=== PATIENT | female | born 1975 | race Hispanic/Latino ===

== ENCOUNTER 2017-10-07 12:47 | Emergency (ER) | payer OTHER ==
[2017-10-07 16:14] LABS: #Basophils 0.1 thou/uL (0.0-0.2); #Eosinphils 0.2 thou/uL (0.0-0.7); #Lymphocytes 1.5 thou/uL (1.20-3.40); #Monocytes 0.3 thou/uL (0.11-0.59); #Neutrophils 5.2 thou/uL (1.40-6.50); %Eosinophils 2.5 % (0.0-10.0); %Lymphocytes 21.1 % (21.0-51.0); %Monocytes 3.6 % (0.0-10.0); %Neutrophils 71.8 % (42.0-75.0); Hemoglobin 12.6 g/dL (12.0-16.0); Mean Corpuscular HGB CONC 33.7 g/dL (32.0-36.0); Mean Corpuscular Hemoglobin 31.7 pg (27.0-31.0); Mean Corpuscular Volume 94.1 fl (81.0-99.0); Mean Platelet Volume 7.6 fL (7.4-10.4); Platelet Count 243 thou/uL (130-400); RBC Distribution Width 12.3 % (11.5-14.5); Red Blood Cell (RBC) Count 3.97 mill/uL (4.20-5.40); White Blood Cell (WBC) Count 7.2 thou/uL (4.8-10.8)
[2017-10-07 16:35] LABS: ALT (SGPT) 39 U/L (8-55); AST (SGOT) 27 U/L (5-34); Albumin 4.3 g/dL (3.5-5.0); Alkaline Phosphatase 110 U/L (40-150); Anion Gap 19 mmol/L (10-20); BUN (Urea Nitrogen) 25 mg/dL (7.0-18.7); Bilirubin, Total 0.7 mg/dL (0.2-1.2); Calc. Creatinine Clearance 0 mL/min (70-130); Calcium 10.1 mg/dL (7.8-10.44); Carbon Dioxide 19 mmol/L (22-29); Chloride 100 mmol/L (98-107); Estimated GFR-MDRD 44; Globulin 3.6 g/dL (2.4-3.5); Glucose 407 mg/dL (70-105); Protein, Total 7.9 g/dL (6.0-8.3); Sodium 134 mmol/L (136-145)
[2017-10-07 16:52] LABS: Bilirubin Negative (Negative); Blood, Urine Trace (Negative); Clarity TURBID (Clear); Glucose, Urine (Dipstick) >=1000 mg/dL (Negative); Leukocyte Small (Negative); Nitrite Negative (Negative); Protein, Urine (Dipstick) 30 mg/dL (Neg-Trace); Specific Gravity, Urine 1.037 (1.002-1.036); Urobilinogen 0.2 mg/dL (0.2-1.0)
[2017-10-07 16:54] LABS: Bacteria/HPF 2+ HPF (None Seen); Hyaline Casts/LPF 4-6 HYALINE CAST LPF (0-3 Hyaline); Pathc Cast-AUWi Flag 1.36 (0-2.49); Squamous Epithelial 21-50 HPF (0-3)
[2017-10-07 16:55] LABS: Yeast-AUWi Flag 6342.6 (0-25.0)
[2017-10-07 17:06] LABS: RBC/HPF 0-3 HPF (0-3); Yeast-All Forms 3+ HPF (None Seen)
--- NOTE | 2017-10-07 17:13 | RAD ---
TWO VIEWS LEFT HIP 10/07/17 HISTORY: Weakness and pain x2 weeks. COMPARISON: 07/16/13. FINDINGS: Contour of the femoral head is maintained. Joint space is preserved. No fracture. IMPRESSION: Unremarkable two views left hip. POS: [facility]
[2017-10-07] MEDS ORDERED: cefTRIAXone\\ROCEPHIN 2 GM in Sodium Chloride 0.9% 100 ML IVPB SCH (17:30)
== END 2017-10-07 18:53 | disposition home or self-care (01) ==
LOC: ERS 12:47
DX: E11.65 Type 2 diabetes mellitus with hyperglycemia (principal); N39.0 Urinary tract infection, site not specified; E03.9 Hypothyroidism, unspecified; E78.5 Hyperlipidemia, unspecified; J45.909 Unspecified asthma, uncomplicated; F31.9 Bipolar disorder, unspecified; F20.9 Schizophrenia, unspecified; F17.210 Nicotine dependence, cigarettes, uncomplicated
CPT/HCPCS: 36416; 80053; 81003; 81015; 85025; 93005; 96361; 96365; J0696; J7050

== ENCOUNTER 2018-01-18 20:13 | Observation (INO) | payer OTHER ==
[~2018-01-18 20:13] MED LIST: ISOVUE-370 76%-LOCM 1 ML ONE
--- NOTE | 2018-01-18 20:34 | CT ---
BRAIN CT WITHOUT IV CONTRAST: HISTORY: A 42-year-old female with a history of left-sided facial weakness. Stroke. Last seen normal seven h ours ago. COMPARISON: 11/15/2016 FINDINGS: No focal mass or midline shift. No intraaxial or extraaxial hemorrhage. There are some sinus mucosa l changes. The mastoids are clear. IMPRESSION: No acute intracranial process. No mass or bleed. Findings were discussed with Dr. Ag, by phone, at 8:28 p.m. CODE CR POS: [facility]
--- NOTE | 2018-01-18 21:09 | CT ---
CTA BRAIN WITH 3D RENDERING: HISTORY: A 42-year-old female with a history of a stroke. Left-sided facial droop. FINDINGS: The vertebral arteries and basilar artery are somewhat low normal in size, probably developmental. N o evidence for significant focal stenosis or occlusive disease. The left vertebral is somewhat small er than the right. There are bilaterally large posterior communicating arteries. No evidence for si gnificant intracranial occlusive disease. No evidence for an aneurysm. There are some minimal calci fied plaques in the intracranial carotid arteries. IMPRESSION: 1. No evidence for acute intracerebral artery occlusive disease. Certainly no evidence for an M1 cl ot. 2. Somewhat small caliber right and left vertebral arteries, somewhat smaller on the left side, and small basilar artery, probably just developmental. There are bilaterally large posterior cerebral ar teries. POS: [facility]
[2018-01-18 21:29] LABS: ALT (SGPT) 10 U/L (8-55); AST (SGOT) 16 U/L (5-34); Albumin 3.5 g/dL (3.5-5.0); Alcohol Less than 10 mg/dL (Less than 10); Alkaline Phosphatase 92 U/L (40-150); Anion Gap 18 mmol/L (10-20); BUN (Urea Nitrogen) 13 mg/dL (7.0-18.7); Bilirubin, Total 0.6 mg/dL (0.2-1.2); CKMB 1.1 ng/mL (0-6.6); Calc. Creatinine Clearance 0 mL/min (70-130); Calcium 8.9 mg/dL (7.8-10.44); Carbon Dioxide 18 mmol/L (22-29); Chloride 95 mmol/L (98-107); Estimated GFR-MDRD 33; Globulin 2.8 g/dL (2.4-3.5); Potassium 3.6 mmol/L (3.5-5.1); Protein, Total 6.3 g/dL (6.0-8.3); Sodium 127 mmol/L (136-145); Troponin I Less than 0.010 ng/mL (< 0.028)
[2018-01-18 21:29] LABS: #Basophils 0.1 thou/uL (0.0-0.2); #Eosinphils 0.3 thou/uL (0.0-0.7); #Lymphocytes 1.7 thou/uL (1.20-3.40); #Monocytes 0.5 thou/uL (0.11-0.59); %Basophils 0.6 % (0.0-1.0); %Eosinophils 2.7 % (0.0-10.0); %Monocytes 3.9 % (0.0-10.0); %Neutrophils 77.9 % (42.0-75.0); Hemoglobin 11.9 g/dL (12.0-16.0); Mean Corpuscular HGB CONC 34.4 g/dL (32.0-36.0); Mean Corpuscular Hemoglobin 30.5 pg (27.0-31.0); Mean Corpuscular Volume 88.7 fl (81.0-99.0); Mean Platelet Volume 7.8 fL (7.4-10.4); Platelet Count 255 thou/uL (130-400); RBC Distribution Width 12.7 % (11.5-14.5); Red Blood Cell (RBC) Count 3.91 mill/uL (4.20-5.40); White Blood Cell (WBC) Count 11.6 thou/uL (4.8-10.8)
[2018-01-18 21:35] LABS: INR-International Normal Ratio 1.1; PTT 33.2 SEC (22.9-36.1); Prothrombin Time 14.4 SEC (12.0-14.7)
[2018-01-18 22:01] LABS: Glucose 594 mg/dL (70-105)
[2018-01-18] MEDS ORDERED: Insulin Regular 300 UNITS/3 ML VIAL ONE (22:14)
[2018-01-18] MEDS ORDERED: Ondansetron ODT 4 MG TAB ONE (22:14)
--- NOTE | 2018-01-18 22:22 | RAD ---
CHEST ONE VIEW: HISTORY: A 42-year-old female with a history of left-sided facial drooping. COMPARISON: 12/17/2016 FINDINGS: Heart size is normal. Lungs are clear. Old granulomatous disease. Atherosclerosis of the aorta. IMPRESSION: 1. Stable atherosclerosis and old granulomatous disease. 2. No acute intrathoracic disease. 3. Unchanged from prior exam from 12/17/2016. POS: [facility]
[2018-01-18 22:46] LABS: Bilirubin Negative (Negative); Blood, Urine Trace (Negative); Clarity CLOUDY (Clear); Glucose, Urine (Dipstick) >=1000 mg/dL (Negative); Leukocyte Moderate (Negative); Nitrite Positive (Negative); Protein, Urine (Dipstick) Trace mg/dL (Neg-Trace); Specific Gravity, Urine 1.039 (1.002-1.036); Urobilinogen 0.2 mg/dL (0.2-1.0)
[2018-01-18 22:48] LABS: Bacteria/HPF 4+ HPF (None Seen); Hyaline Casts/LPF 0-3 HYALINE CAST LPF (0-3 Hyaline); Pathc Cast-AUWi Flag 0.29 (0-2.49); Squamous Epithelial 0-3 HPF (0-3); Yeast-AUWi Flag 111.5 (0-25.0)
[2018-01-18 22:54] LABS: Amphetamine Not Detected (NotDetected); Barbiturates Screen Not Detected (NotDetected); Benzodiazepine Screen Not Detected (NotDetected); Cocaine Metabolite Screen Not Detected (NotDetected); Medtox Control Line Valid? VALID (VALID); Medtox Reader # READER 4; Methadone Not Detected (NotDetected); Methamphetamine Not Detected (NotDetected); Opiate Screen Not Detected (NotDetected); Oxycodone Screen Not Detected (NotDetected); Phencyclidine (PCP) Not Detected (NotDetected); THC/Cannabinoid Screen Not Detected (NotDetected); Tricyclic Screen Not Detected (NotDetected)
[2018-01-18 22:56] LABS: Yeast-All Forms 1+ HPF (None Seen)
[2018-01-19] MEDS ORDERED: Acetaminophen 325 MG TAB PO PRN (00:02)
[2018-01-19] MEDS ORDERED: Ondansetron ODT 4 MG TAB PO PRN (00:02)
[2018-01-19] MEDS ORDERED: Ondansetron HCl/PF 4 MG/2 ML Vial IVP PRN (00:02)
[2018-01-19] MEDS ORDERED: Sodium Chloride 0.9% 1,000 ML IV SCH (00:15)
--- NOTE | 2018-01-19 00:25 | PDOC.FPRHP ---
- History of Present Illness Chief Complaint: AMS History of Present Illness: 42 year old female with PMH of diabetes mellitus type II, hypothyroidism, schizoaffective disorder, and tobacco abuse that presents with AMS. She was out at [place] today with her family when she was noted to have slurred speech around 13:00. [facility] [place] [facility] [place] but cannot recall the events leading up to being in the hospital. Family members called EMS due to concerns for a stroke. Patient denies any trauma, N/V/D, fever, or trauma. She states that she was drinking plenty of fluids today to include water and gatorade, but feels she may have gotten overheated. She does not recall losing consciousness or passing out, but cannot remember for certain. There is no family around to provide history. Patient lives at home with her daughter and has been feeling fine up to this point. She has not had any recent illness. Patient denies any alcohol use today. ED Course: Patient given 4 mg zofran ODT, ASA 324 mg, Novolin R 10 Units, and 500 mL fluid bolus in ED - Allergies/Adverse Reactions Allergies Allergy/AdvReac Type Severity Reaction Status Date / Time amoxicillin trihydrate Allergy Unknown Verified 01/19/18 02:13 [From Trimox] doxycycline Allergy Unknown Verified 01/19/18 02:13 Penicillins Allergy Unknown Verified 01/19/18 02:13 sulfamethoxazole Allergy Unknown Verified 01/19/18 02:13 [From Bactrim] trimethoprim [From Bactrim] Allergy Unknown Verified 01/19/18 02:13 - Home Medications Medication Instructions Recorded Confirmed Type metFORMIN HCl 500 mg PO BID-WM #0 tab 09/13/14 01/19/18 Rx Levothyroxine Sodium 200 mcg PO DAILY #60 tablet 09/04/16 01/19/18 Rx - History PMHx: Schizoaffective disorder, Anxiety, Insomnia, Diabetes mellitus type II, Hypothyroidism, CHF with preserved EF borderline PSHx: Hysterectomy, Cholecystectomy, Hx of bianca gangrene s/p debridement FHx: Non-contributory Social: Patient endorses a 1/2 PPD smoking history for the past 30 years. She endorses occasional alcohol use. Denies illicit drug use. - Review of Systems General: reports: fatigue. denies: fever/chills, weight/appetite/sleep changes Eyes: denies: vision changes ENT: denies: nasal congestion, rhinorrhea Respiratory: denies: cough, congestion, shortness of breath Cardiovascular: denies: chest pain, palpitation, edema Gastrointestinal: denies: nausea, vomiting, diarrhea, constipation, abdominal pain Genitourinary: denies: dysuria, polyuria Skin: denies: rashes, jaundice, itching Musculoskeletal: denies: pain, tenderness, stiffness, arthritis/arthralgias Neurological: reports: weakness, other (Light-headed, dizzy). denies: numbness , seizure - Vital signs BP: 121/74 HR: 71 RR: 12 Tmax: 98.3 F Pox: 98% on RA Wt: 69.20 kg - Physical Exam Constitutional: NAD, awake, alert and oriented, well developed -Constitutional: Appears drowsy HEENT: EOMI -HEENT: left eyelid droop, normal per patient, poor dentition Neck: supple Heart: RRR, no murmurs/rubs/gallops Lungs: CTAB, no respiratory distress, good air movement, no wheezing Abdomen: soft, non-tender, bowel sounds present, no masses/distention Musculoskeletal: normal structure -Musculoskeletal: left hip pain which limits ability to flex hip against gravity or resistance, tender to palpation at left hip joint Neurological: no focal deficit Skin: no rash/lesions, capillary refill <2 seconds -Skin: feet appear to be poorly cared for Heme/Lymphatic: no unusual bruising or bleeding, no purpura -Psychiatric: poor insight and recent memory FMR H&P: Results - Labs Result Diagrams: 01/19/18 04:47 01/19/18 04:47 Lab results: WBC 11.6 thou/uL (4.8-10.8) H 01/18/18 21:19 Hgb 11.9 g/dL (12.0-16.0) L 01/18/18 21:19 Hct 34.7 % (36.0-47.0) L 01/18/18 21:19 MCV 88.7 fl (81.0-99.0) 01/18/18 21:19 Plt Count 255 thou/uL (130-400) 01/18/18 21:19 Neutrophils % 77.9 % (42.0-75.0) H 01/18/18 21:19 Sodium 127 mmol/L (136-145) L 01/18/18 21:04 Potassium 3.6 mmol/L (3.5-5.1) 01/18/18 21:04 Chloride 95 mmol/L (98-107) L 01/18/18 21:04 Carbon Dioxide 18 mmol/L (22-29) L 01/18/18 21:04 BUN 13 mg/dL (7.0-18.7) 01/18/18 21:04 Creatinine 1.71 mg/dL (0.6-1.1) H 01/18/18 21:04 Glucose 594 mg/dL (70-105) H* 01/18/18 21:04 Calcium 8.9 mg/dL (7.8-10.44) 01/18/18 21:04 Total Bilirubin 0.6 mg/dL (0.2-1.2) 01/18/18 21:04 AST 16 U/L (5-34) 01/18/18 21:04 ALT 10 U/L (8-55) 01/18/18 21:04 Alkaline Phosphatase 92 U/L (40-150) 01/18/18 21:04 Ammonia 25 umol/L (18-72) 01/18/18 21:47 CK-MB (CK-2) 1.1 ng/mL (0-6.6) 01/18/18 21:04 Serum Total Protein 6.3 g/dL (6.0-8.3) 01/18/18 21:04 Albumin 3.5 g/dL (3.5-5.0) 01/18/18 21:04 Urine Ketones Negative mg/dL (Negative) 01/18/18 22:35 Urine Blood Trace (Negative) H 01/18/18 22:35 Urine Nitrite Positive (Negative) H 01/18/18 22:35 Ur Leukocyte Esterase Moderate (Negative) H 01/18/18 22:35 Urine RBC 4-6 HPF (0-3) 01/18/18 22:35 Urine WBC Greater Than 50-TNTC HPF (0-3) H 01/18/18 22:35 Ur Squamous Epith Cells 0-3 HPF (0-3) 01/18/18 22:35 Urine Bacteria 4+ HPF (None Seen) H 01/18/18 22:35 - EKG Interpretation EKG: incomplete RBBB, IA 180 ms - Radiology Interpretation CT scan - head Status: image reviewed by me, report reviewed by me Additional comment: No acute intracranial findings Other Status: image reviewed by me, report reviewed by me Additional comment: CT angiography head and neck: no evidence of ischemia or clot formation Chest x-ray Status: image reviewed by me, report reviewed by me Additional comment: stable chronic granulomatous disease, no acute findings FMR H&P: A/P - Problem List (1) Encephalopathy acute Current Visit: Yes Status: Acute Code(s): G93.40 - ENCEPHALOPATHY, UNSPECIFIED (2) Urinary tract infection Current Visit: Yes Status: Acute (3) Moderate dehydration Current Visit: Yes Status: Acute Code(s): E86.0 - DEHYDRATION (4) Hyperglycemia Current Visit: Yes Status: Acute Code(s): R73.9 - HYPERGLYCEMIA, UNSPECIFIED (5) Diabetes type 2, uncontrolled Current Visit: No Status: Chronic Code(s): E11.65 - TYPE 2 DIABETES MELLITUS WITH HYPERGLYCEMIA Qualifiers: Diabetes mellitus ferry terminal agent insulin use: with fdc use Diabetes mellitus complication status: without complication Qualified Code(s): E11.65 - Type 2 diabetes mellitus with hyperglycemia; Z79.4 - middle or intermediate school principal (current) use of insulin; Z79.4 - middle or intermediate school principal (current) use of insulin; Z79.4 - long-term ( current) use of insulin; Z79.4 - middle or intermediate school principal (current) use of insulin (6) History of coronary artery disease Current Visit: No Status: Chronic Code(s): Z86.79 - PERSONAL HISTORY OF OTHER DISEASES OF THE CIRCULATORY SYSTEM (7) Hypothyroidism Current Visit: No Status: Chronic Code(s): E03.9 - HYPOTHYROIDISM, UNSPECIFIED (8) Noncompliance with medication regimen Current Visit: No Status: Chronic Code(s): Z91.14 - PATIENT'S OTHER NONCOMPLIANCE WITH MEDICATION REGIMEN (9) Congestive heart failure with left ventricular diastolic dysfunction Current Visit: Yes Status: Chronic Code(s): I50.30 - UNSPECIFIED DIASTOLIC ( CONGESTIVE) HEART FAILURE Qualifiers: Congestive heart failure chronicity: chronic Qualified Code(s): I50.32 - Chronic diastolic (congestive) heart failure (10) Hyponatremia Current Visit: Yes Status: Acute Code(s): E87.1 - HYPO-OSMOLALITY AND HYPONATREMIA (11) JESSICA (acute kidney injury) Current Visit: No Status: Acute Code(s): N17.9 - ACUTE KIDNEY FAILURE, UNSPECIFIED - Plan Encephalopathy likely 2/2 UTI and dehydration - s/p 500 mL fluid bolus in ED - Started on ciprofloxacin 500 mg BID as pt is penicillin and sulfa allergic - Maintenance IVF - Monitor fluid status - Strict I&O's UTI - Plan as above Moderate dehydration - s/p 500 mL fluid bolus in ED - Pt with history of CHF, gently hydrate - Maintenance IVF - Monitor fluid status - Strict I&O's Diabetes mellitus type II, uncontrolled with hyperglycemia - Only taking metformin at home - Given 10 U Novolin R in ED which has brought BG from 500's to 300's - Will start pt on mild SSI with intention of starting insulin on outpatient basis - Consider starting DREW-I Hypothyroidism - TSH pending - Hx of myxedema - Continue home medications CHF with preserved EF, borderline - Pt dehydrated, so fluids being given - Once volume repleted, will start pt on fluid restrictions - Strict I&O's - Daily weights - Consider starting DREW-I, BB Schizoaffective disorder - Continue home medications Pseudohyponatremia - 2/2 elevated BG - Monitor with AM BMP JESSICA - IVF - Monitor with BMP Dispo: Pt admitted to medical unit. Anticipate LOS >48 hours. FMR H&P: Upper Level - Pertinent history Pt is a 42 yo F with PMHx DM2, bipolar d/o, CAD, borderline HFpEF (EF 40-45%) p/ w confusion and slurred speech. [place] She endorses drinking plenty of water but this afternoon began complaining of dizziness/lightheadedness. She has little memory after this but was brought in by EMS after her family became concerned about a change in her speech. ED records reflect stroke activation due to concern for slurred speech and L sided facial droop. Pt states L eye droops chronically, along with L leg weakness that is chronic. Pt denies N/V/D. No cough or recent fevers. Denies urinary complaints. No family around to give further history. Pt has hx DM but has not followed up with PCP recently concerning this. Lives with her daughter. Acute stroke not felt to be present due to negative CTA brain but pt remained weak overall and did not feel comfortable going home. Sent to floor for observation. - Pertinent findings Gen: A&Ox3, NAD, slow to respond due to perceived drowsiness HEENT: L eyelid droop although can lift without difficulty (chronic issue per pt ); no evidence of facial droop or slurred speech; poor dentition CV: RRR, no m/r/g Lungs: CTAB, no increased WOB Abd: NT/ND, +BS MSK: decreased L hip ROM 2/2 pain; gait not assessed due to mentation and pain Neuro: no focal deficits, CN 2-12 intact, normal sensation, L leg weakness appears 2/2 chronic pain issue rather than neurologic change Ext: no edema or cyanosis Skin: small red popular lesions on dorsal surface of L foot; xerosis on BLE distal to mid-weinstein Psych: recent and distant memory currently appear poor - Plan Date/Time: 01/19/18 0018 1. Acute toxic-metabolic encephalopathy 2/2 UTI and dehydration. Pts confusion does not appear related to CVA after neg imaging. Evidence of UTI on UA. Pending culture. Starting abx. Dehydration likely as well due to being in heat all day and polyuria from untreated DM2 with current hyperglycemia. Will correct with insulin and monitor for improvement in mentation. May improve quickly with intervention so sending to observation unit for expected 1-2 day stay. 2. Hyperglycemia. Pt has undertreated DM2 after clinic chart review due to noncompliance with appts. Last A1c >14 in 12/31 but did not follow up so insulin not yet started. BG > 594 in ED so given insulin. Will start daily insulin regimen with SSI and monitor. Discussed need for home insulin. Likely contributed to dehydration and AMS. 3. UTI. See #1. Starting Cipro as pt endorses anaphylactic rxn to multiple abx including PCN. Await UCx. Denies urinary symptoms although poor historian and likely still has slightly altered mentation. 4. JESSICA. Baseline Cr 0.8. Repeat in AM following fluid administration. Due to hx CHF, gentle with fluids although repeat L bolus now. 5. HFpEF, borderline. Last ECHO showed EF 40-45% (09/29) with evidence of diastolic dysfunction. Had 2 MIs in 20s per record that appear related to prior polysubstance abuse that she currently denies. Will give more gentle fluids due to this and monitor. Pt has incomplete follow-up per chart review at [facility]. 6. Dehydration, moderate. Fluids as above. Monitor. 7. Pseudohyponatremia. 2/2 hyperglycemia. Repeat in AM. I, Иван Barnes, have evaluated this patient and agree with findings/plan as outlined by internal combustion engine subassembler resident. Pertinent changes/additions are listed here. Attending Addendum - Attending Addendum Date/Time: 01/19/18 1378 I personally evaluated the patient and discussed the management with Dr. Rangel and Dr. Barnes I agree with the History, Examination, Assessment and Plan documented above with any addition or exceptions noted below. 42 yo female with history of uncontrolled DM presents to ER with encephalopathy. Patient with unsure history but reports not feeling well today. [place] [facility] [place] 12 [place] to time of arrive to ER. Denies EtOH and drug use. Denies drinking much fluids. Unsure etiology at this time to encephalopathy. Imaging negative. No deficits on exam, but earlier displayed confusion and difficulty with concentration in the ER. Will treat hyperglycemia and UTI. Currently without symptoms. Place in obs. With hx of myxedema will obtain TSH. Patient admitts to having difficulty with remembering to take medications. Fareed
[2018-01-19] MEDS ORDERED: Dextrose 5% in Water 1,000 ML IV PRN (00:54)
[2018-01-19] MEDS ORDERED: Dextrose 50% Abboject 50 ML SYRINGE SLOW IVP PRN (00:54)
[2018-01-19] MEDS ORDERED: HumaLOG 300 UNITS/3 ML VIAL SC PRN (00:54)
[2018-01-19] MEDS ORDERED: Sodium Chloride 0.9% 500 ML IV SCH (02:00)
[2018-01-19 02:02] VITALS: BMI 30.5
[2018-01-19] MEDS ORDERED: Levothyroxine Sodium 100 MCG TAB PO SCH ×2 (03:00→06:00)
[2018-01-19] MEDS: Sodium Chloride 0.9% 1,000 ML IV SCH ×3 (03:10→21:42)
[2018-01-19 04:59] LABS: #Basophils 0.1 thou/uL (0.0-0.2); #Eosinphils 0.4 thou/uL (0.0-0.7); #Lymphocytes 3.3 thou/uL (1.20-3.40); #Monocytes 0.4 thou/uL (0.11-0.59); #Neutrophils 7.6 thou/uL (1.40-6.50); %Basophils 0.9 % (0.0-1.0); %Eosinophils 3.6 % (0.0-10.0); %Lymphocytes 27.6 % (21.0-51.0); %Neutrophils 64.9 % (42.0-75.0); Hemoglobin 12.5 g/dL (12.0-16.0); Mean Corpuscular HGB CONC 33.6 g/dL (32.0-36.0); Mean Corpuscular Hemoglobin 29.8 pg (27.0-31.0); Mean Corpuscular Volume 88.5 fl (81.0-99.0); Mean Platelet Volume 7.6 fL (7.4-10.4); Platelet Count 278 thou/uL (130-400); RBC Distribution Width 12.7 % (11.5-14.5); Red Blood Cell (RBC) Count 4.22 mill/uL (4.20-5.40); White Blood Cell (WBC) Count 11.7 thou/uL (4.8-10.8)
[2018-01-19 05:18] LABS: Anion Gap 12 mmol/L (10-20); BUN (Urea Nitrogen) 16 mg/dL (7.0-18.7); Calc. Creatinine Clearance 71 mL/min (70-130); Calcium 8.7 mg/dL (7.8-10.44); Carbon Dioxide 24 mmol/L (22-29); Chloride 99 mmol/L (98-107); Estimated GFR-MDRD 49; Glucose 305 mg/dL (70-105); Potassium 3.6 mmol/L (3.5-5.1); Sodium 131 mmol/L (136-145)
[2018-01-19 05:37] LABS: Free T4 (Free Thyroxine) 0.52 ng/dL (0.70-1.48)
[2018-01-19] MEDS: HumaLOG 300 UNITS/3 ML VIAL SC PRN ×2 (06:01→18:10)
--- NOTE | 2018-01-19 06:16 | PDOC.FM ---
- Subjective Subjective: Guadalupe Green seen at bedside this morning. She has no complaints. She had no events overnight. She appears to be more alert and oriented compared to yesterday, based on exam from admitting team, but I did not examine her initially. She denies any chest pain, fever, chills, dyspnea, nausea, vomiting, dizziness, headache. - Objective MAR Reviewed: Yes Vital Signs & Weight: Vital Signs (12 hours) Temp Pulse Resp BP BP Pulse Ox 01/19/18 04:11 97.6 F 77 15 111/71 92 L 01/19/18 00:04 97.7 F 70 16 96/63 95 Weight Weight 73.346 kg I&O: 01/17/18 01/18/18 01/19/18 06:59 06:59 06:59 Intake Total 1182 Output Total 500 Balance 682 Result Diagrams: 01/19/18 04:47 01/19/18 04:47 <Fredi Gipson - Last Filed: 01/19/18 08:53> - Objective Vital Signs & Weight: Vital Signs (12 hours) Temp Pulse Resp BP BP Pulse Ox 01/19/18 11:00 97.4 F L 64 16 118/79 93 L 01/19/18 07:11 97.4 F L 69 16 136/86 94 L 01/19/18 04:11 97.6 F 77 15 111/71 92 L 01/19/18 00:04 97.7 F 70 16 96/63 95 Weight Weight 73.346 kg I&O: 01/18/18 01/19/18 01/20/18 06:59 06:59 06:59 Intake Total 1182 Output Total 500 Balance 682 Result Diagrams: 01/19/18 04:47 01/19/18 04:47 <Oscar Louis - Last Filed: 01/19/18 11:50> Phys Exam - Physical Examination Constitutional: NAD HEENT: moist MMs, sclera anicteric Neck: no JVD, supple, full ROM Respiratory: no wheezing, no rales, no rhonchi, clear to auscultation bilateral Cardiovascular: RRR, no significant murmur Gastrointestinal: soft, non-tender, no distention Musculoskeletal: no edema, pulses present Neurological: non-focal, normal sensation, moves all 4 limbs Psychiatric: normal affect, A&O x 3 <Fredi Gispon - Last Filed: 01/19/18 08:53> Dx/Plan (1) Encephalopathy acute Code(s): G93.40 - ENCEPHALOPATHY, UNSPECIFIED Status: Acute (2) Moderate dehydration Code(s): E86.0 - DEHYDRATION Status: Acute (3) Urinary tract infection Status: Acute (4) JESSICA (acute kidney injury) Code(s): N17.9 - ACUTE KIDNEY FAILURE, UNSPECIFIED Status: Acute (5) Congestive heart failure with left ventricular diastolic dysfunction Code(s): I50.30 - UNSPECIFIED DIASTOLIC (CONGESTIVE) HEART FAILURE Status: Chronic QualifierTitle: Congestive heart failure chronicity: chronic Qualified Code(s): I50.32 - Chronic diastolic (congestive) heart failure (6) Diabetes type 2, uncontrolled Code(s): E11.65 - TYPE 2 DIABETES MELLITUS WITH HYPERGLYCEMIA Status: Chronic QualifierTitle: Diabetes mellitus senior care insulin use: with performance improvement coordinator use Diabetes mellitus complication status: without complication Qualified Code(s): E11.65 - Type 2 diabetes mellitus with hyperglycemia; Z79.4 - printer small print shop (current) use of insulin; Z79.4 - intermediate (current) use of insulin; Z79.4 - intermediate (current) use of insulin; Z79.4 - intermediate (current) use of insulin (7) Hyperlipidemia Code(s): E78.5 - HYPERLIPIDEMIA, UNSPECIFIED Status: Chronic (8) Hypothyroidism Code(s): E03.9 - HYPOTHYROIDISM, UNSPECIFIED Status: Chronic (9) Noncompliance with medication regimen Code(s): Z91.14 - PATIENT'S OTHER NONCOMPLIANCE WITH MEDICATION REGIMEN Status : Chronic - Plan Plan: (1) Encephalopathy - likely 2/2 UTI and dehydration - s/p 500 mL fluid bolus in ED - Started on ciprofloxacin 500 mg BID as pt is penicillin and sulfa allergic - Maintenance IVF - Monitor fluid status - Strict I&O's (2) UTI - Plan as above (3) Moderate dehydration - s/p 500 mL fluid bolus in ED - Pt with history of CHF, gently hydrate - Maintenance IVF - Monitor fluid status - Strict I&O's (4) Diabetes mellitus type II, uncontrolled with hyperglycemia - Only taking metformin at home - Given 10 U Novolin R in ED which has brought BG from 500's to 300's - Will start pt on mild SSI with intention of starting insulin on outpatient basis - Consider starting DREW-I - Will consult admitted attorneys - Diabetes education daily (5) Hypothyroidism - TSH was 255 - Free T3 was 0.52, and Free T4 was 1.29 - Restarting home dose, possible noncompliance with regimen, will likely increase dose - Hx of myxedema (6) CHF with preserved EF, borderline - Pt dehydrated, so fluids being given - Once volume repleted, will start pt on fluid restrictions - Strict I&O's - Daily weights - Consider starting DREW-I, BB (7) Schizoaffective disorder - Continue home medications (8) Pseudohyponatremia - 2/2 elevated BG - Monitor with AM BMP (8) JESSICA - IVF - Monitor with BMP <Fredi Gipson - Last Filed: 01/19/18 08:53> Attending Addendum - Attending Addendum Date/Time: 01/19/18 1147 I personally evaluated the patient and discussed the management with Dr. Gipson. I agree with the History, Examination, Assessment and Plan documented above with any addition or exceptions noted below. Patient reports feeling well. Her encephalopathy appears to have been very short lived and transient. She has mental slowing at baseline due to her inadequately controlled hypothyroidism due to not following up with PCP outpatient. She has no focal deficits. This is likely all caused by a combo of her psychiatric condition, hypothyroidism, hypovolemia, and UTI. Continue on IV antbiotics and await culture results, and continue mild IV rehydration. Continue on levothyroxine and needs further outpatient mgmt. Her blood sugars are uncontrolled and complicating her picture, will start basal insulin today with Levemir and obtain diabetic teaching/education. Will likely need at least another 24 hours of hospitalization. <Oscar Louis - Last Filed: 01/19/18 11:50>
[2018-01-19] MEDS ORDERED: metFORMIN 500 MG TAB PO SCH (08:00)
[2018-01-19] MEDS ORDERED: Insulin Detemir 100 UNITS/ML 10 UNITS in Pre-Filled Syringe 1 EACH SC SCH (09:30)
[2018-01-19 10:18] LABS: Hemoglobin A1c 11.4 % (4.0-6.0)
[2018-01-20] MEDS: Sodium Chloride 0.9% 1,000 ML IV SCH ×2 (00:16→11:51)
--- NOTE | 2018-01-20 05:55 | PDOC.FM ---
- Subjective Subjective: Guadalupe Green seen at bedside this morning. She had no acute events overnight. She has no complaints this morning. She denies any chest pain, dyspnea, fever, chills, abd pain/n/v. She states that she feels like she is back to her normal. - Objective MAR Reviewed: Yes Vital Signs & Weight: Vital Signs (12 hours) Temp Pulse Resp BP BP Pulse Ox 01/20/18 03:45 97.5 F L 72 18 134/79 93 L 01/20/18 00:00 97.7 F 65 15 144/89 H 96 01/19/18 19:56 97.4 F L 68 18 01/19/18 19:09 97.4 F L 68 18 129/88 95 Weight Admit Weight 73.346 kg Weight 73.346 kg I&O: 01/18/18 01/19/18 01/20/18 06:59 06:59 06:59 Intake Total 1182 2720 Output Total 500 Balance 682 2720 Result Diagrams: 01/19/18 04:47 01/20/18 06:19 <Fredi Gipson - Last Filed: 01/20/18 06:59> - Objective Vital Signs & Weight: Vital Signs (12 hours) Temp Pulse Resp BP BP Pulse Ox 01/20/18 08:00 97.6 F 66 18 01/20/18 07:30 97.6 F 66 18 148/90 H 97 01/20/18 03:45 97.5 F L 72 18 134/79 93 L 01/20/18 00:00 97.7 F 65 15 144/89 H 96 Weight Admit Weight 73.346 kg Weight 75.568 kg I&O: 01/19/18 01/20/18 01/21/18 06:59 06:59 06:59 Intake Total 1182 4280 240 Output Total 500 900 Balance 682 3380 240 Result Diagrams: 01/19/18 04:47 01/20/18 06:19 <Oscar Louis - Last Filed: 01/20/18 10:35> Phys Exam - Physical Examination Constitutional: NAD HEENT: moist MMs, sclera anicteric Neck: no JVD, supple, full ROM Respiratory: no wheezing, no rales, no rhonchi, clear to auscultation bilateral Cardiovascular: RRR, no significant murmur Gastrointestinal: soft, non-tender, no distention Musculoskeletal: no edema, pulses present Neurological: non-focal, normal sensation, moves all 4 limbs Psychiatric: normal affect, A&O x 3 Skin: no rash, normal turgor <BrandanFredi - Last Filed: 01/20/18 06:59> Dx/Plan (1) Encephalopathy acute Code(s): G93.40 - ENCEPHALOPATHY, UNSPECIFIED Status: Acute (2) Moderate dehydration Code(s): E86.0 - DEHYDRATION Status: Acute (3) Urinary tract infection Status: Acute (4) JESSICA (acute kidney injury) Code(s): N17.9 - ACUTE KIDNEY FAILURE, UNSPECIFIED Status: Acute (5) Congestive heart failure with left ventricular diastolic dysfunction Code(s): I50.30 - UNSPECIFIED DIASTOLIC (CONGESTIVE) HEART FAILURE Status: Chronic QualifierTitle: Congestive heart failure chronicity: chronic Qualified Code(s): I50.32 - Chronic diastolic (congestive) heart failure (6) Diabetes type 2, uncontrolled Code(s): E11.65 - TYPE 2 DIABETES MELLITUS WITH HYPERGLYCEMIA Status: Chronic QualifierTitle: Diabetes mellitus retirement insulin use: with exterminator termite use Diabetes mellitus complication status: without complication Qualified Code(s): E11.65 - Type 2 diabetes mellitus with hyperglycemia; Z79.4 - watermelon inspector (current) use of insulin; Z79.4 - [facility] (current) use of insulin; Z79.4 - watermelon inspector (current) use of insulin; Z79.4 - [facility] (current) use of insulin (7) Hyperlipidemia Code(s): E78.5 - HYPERLIPIDEMIA, UNSPECIFIED Status: Chronic (8) Hypothyroidism Code(s): E03.9 - HYPOTHYROIDISM, UNSPECIFIED Status: Chronic (9) Noncompliance with medication regimen Code(s): Z91.14 - PATIENT'S OTHER NONCOMPLIANCE WITH MEDICATION REGIMEN Status : Chronic - Plan Plan: (1) Encephalopathy-resolved - likely 2/2 UTI and dehydration - s/p 500 mL fluid bolus in ED - Started on ciprofloxacin 500 mg BID as pt is penicillin and sulfa allergic - Maintenance IVF - Monitor fluid status - Strict I&O's - mental status at baseline since yesterday morning (2) UTI - Plan as above (3) Moderate dehydration-resolved - s/p 500 mL fluid bolus in ED - Pt with history of CHF, gently hydrate - Maintenance IVF - Monitor fluid status - Strict I&O's - Will likely switch to PO fluids today (4) Diabetes mellitus type II, uncontrolled with hyperglycemia - Only taking metformin at home - Given 10 U Novolin R in ED which has brought BG from 500's to 300's - Started 10 U levemir yesterday, will continue regimen and monitor accuchecks and make adjustments - Consider starting DREW-I - Will consult warranty manager - Diabetes education daily (5) Hypothyroidism - TSH was 255 - Free T3 was 0.52, and Free T4 was 1.29 - Restarting home dose, possible noncompliance with regimen, will likely increase dose - Hx of myxedema (6) CHF with preserved EF, borderline - Pt dehydrated, so fluids being given - Once volume repleted, will start pt on fluid restrictions - Strict I&O's - Daily weights - Consider starting DREW-I, BB (7) Schizoaffective disorder - Continue home medications (8) Pseudohyponatremia - 2/2 elevated BG - Monitor with AM BMP (8) JESSICA - IVF - Monitor with BMP <Fredi Gipson - Last Filed: 01/20/18 06:59> Attending Addendum - Attending Addendum Date/Time: 01/20/18 1034 I personally evaluated the patient and discussed the management with Dr. Gipson. I agree with the History, Examination, Assessment and Plan documented above with any addition or exceptions noted below. Patient feeling well. She feels ready to go home. Will transition to oral Cipro for UTI and call her outpatient with the culture results. Will escalate her insulin therapy and titrate as needed as outpatient. Counselled on need to take all medications as directed. <Oscar Louis - Last Filed: 01/20/18 10:35>
[2018-01-20] MEDS ORDERED: Levothyroxine Sodium 100 MCG TAB PO SCH (06:00)
[2018-01-20] MEDS: HumaLOG 300 UNITS/3 ML VIAL SC PRN ×2 (06:20→11:51)
[2018-01-20 06:39] LABS: Anion Gap 8 mmol/L (10-20); BUN (Urea Nitrogen) 15 mg/dL (7.0-18.7); Calc. Creatinine Clearance 78 mL/min (70-130); Calcium 8.5 mg/dL (7.8-10.44); Carbon Dioxide 25 mmol/L (22-29); Chloride 105 mmol/L (98-107); Estimated GFR-MDRD 55; Glucose 306 mg/dL (70-105); Potassium 3.3 mmol/L (3.5-5.1); Sodium 135 mmol/L (136-145)
[2018-01-20 07:55] VITALS: TEMP 97.6
[2018-01-20] MEDS ORDERED: Insulin Detemir 100 UNITS/ML 15 UNITS in Pre-Filled Syringe 1 EACH SC SCH (09:00)
[2018-01-20] MEDS ORDERED: Insulin Detemir 100 UNITS/ML 10 UNITS in Pre-Filled Syringe 1 EACH SC SCH (09:00)
[2018-01-20] MEDS ORDERED: Potassium Chloride 20 MEQ TAB PO SCH (09:00)
[2018-01-20 11:38] VITALS: BP 136/89
--- NOTE | 2018-01-20 17:32 | DIS-2 ---
DATE OF ADMISSION: 01/18/2018 DATE OF DISCHARGE: 01/20/2018 RESIDENT: Fredi Gipson M.D. ADMITTING ATTENDING: Dr. Constanaz Mathew. DISCHARGE ATTENDING: Dr. Oscar Louis. DISCHARGE ATTENDING: Dr. Oscar Louis CONSULTS: None. PROCEDURES: CT of the brain on 01/18/2018. Impression: No acute intracranial process, no mass or b leed. CT angiography of neck with and without contrast. Impression: No evidence of acute intracere bral artery occlusive disease. Certainly, no evidence for an M1 clot, somewhat small caliber, right and left vertebral arteries, somewhat smaller on the left side and small basilar artery probably just developmental. There are bilaterally large posterior cerebral arteries. Chest x-ray on 01/18/2018. Impression: Stable atherosclerosis and old granulomatous disease, no acu te intrathoracic process. Urine culture on 01/18/2018, presumptive Proteus mirabilis. Blood culture from 01/19/2018, no growth to date. PRIMARY DIAGNOSES: 1. Acute toxic encephalopathy likely secondary to urinary tract infection and dehydration. 2. Urinary tract infection. 3. Moderate dehydration. 4. Hyperglycemia. 5. Acute kidney injury. 6. Pseudohyponatremia. DISCHARGE DIAGNOSES: 1. Acute toxic encephalopathy likely secondary to urinary tract infection and dehydration. 2. Urinary tract infection. 3. Moderate dehydration. 4. Type 2 diabetes, uncontrolled. 5. Acute kidney injury. DISCHARGE MEDICATIONS: 1. Metformin 500 mg p.o. b.i.d. with meals. 2. Levothyroxine sodium 200 mcg p.o. daily. 3. Cipro 250 mg p.o. q.12 hours. 4. Levemir 15 units subcu every morning. 5. Levemir 10 units subcu at night. HISTORY OF PRESENT ILLNESS AND HOSPITAL COURSE: Guadalupe Green is a 42-year-old female with past m edical history of type 2 diabetes, hypothyroidism, schizoaffective disorder and tobacco abuse who pre sented to the ED with altered mental status. She was out on [place] the day of admission with her family when she was noted to have slurred speech around 1:00. The patient remembers being at the [facility], but cannot recall the events leading up to being in the hospital. Patient's family members hart d EMS due to concerns of a stroke. Patient denies any trauma, nausea, vomiting, diarrhea, fever or t rauma. She states that she was drinking plenty of fluids including Gatorade and water, but she feels like she may have gotten overheated. She does not recall losing consciousness or passing out, but c annot remember. There is no family to provide history in the ED. She lives at home with her dylan peres and has been feeling fine up to that point. No recent illnesses. In the ED, the patient received Zofran, aspirin, Novolin and normal saline bolus. The patient was admitted. Initial labs included w mandy blood cell count 11.7. Sodium 131, creatinine of 1.21, glucose of 305. UA was significant for moderate leukocyte esterase, greater than 50 white blood cells, 4+ urine bacteria, positive nitrite. CT of the head was negative. CT angiogram of the head and neck showed no evidence of ischemia or cl ot formation. Chest x-ray showed no acute findings. Patient was admitted for encephalopathy likely secondary to UTI and dehydration. Fluids were started. Ciprofloxacin was started, as the patient wa s PENICILLIN and SULFA allergic. IV fluids were started. After the first night of admission, the balwinder salcedo's mental status improved. She was at her baseline. Stated that she felt much better. The codie ramon's hemoglobin A1c was 11.4 and patient was started on Levemir 10 units with sliding scale insulin . Acute kidney injury resolved on 01/20/2018. The patient was back to baseline physical status and mental status and she was ready for discharge. Instructions were given extensively on taking her ins ulin and following up with [facility] sometime within the next week for diabetes management . The patient was in agreement, stated that she would take insulin, stated that she had supplies fro m before that she could still use. She does need a prescription for insulin. States that she had gl ucometer test strips and needles, confirmed that with the pharmacy, they stated that she has got refi lls for the supplies as well. DISPOSITION: The patient should do well if she continues to take her insulin as directed and follows up closely with [facility] to get tighter control of her diabetes. Her symptoms are likel y secondary to UTI and dehydration as well as hyperglycemia, UTI. Her urine culture is positive for Proteus, susceptibility is pending. Ciprofloxacin is on board. The patient will continue course of Cipro outpatient. DISCHARGE INSTRUCTIONS: 1. Location: Home. 2. Diet: Heart healthy and diabetic diet. 3. Activity: As tolerated. Follow up with [facility] this week.
== END 2018-01-20 12:38 | disposition home or self-care (01) ==
LOC: ERS 20:13 → 2SW 23:58
PROVIDERS: ADMIT Student in an Organized Health Care Education/Training Program; ATTEND Student in an Organized Health Care Education/Training Program
DX: G92 Toxic encephalopathy (principal); N39.0 Urinary tract infection, site not specified; E86.0 Dehydration; E87.1 Hypo-osmolality and hyponatremia; E11.65 Type 2 diabetes mellitus with hyperglycemia; E03.9 Hypothyroidism, unspecified; I50.30 Unspecified diastolic (congestive) heart failure; F25.9 Schizoaffective disorder, unspecified; N17.9 Acute kidney failure, unspecified; F17.210 Nicotine dependence, cigarettes, uncomplicated; G47.00 Insomnia, unspecified; I25.10 Atherosclerotic heart disease of native coronary artery without angina pectoris; Z88.2 Allergy status to sulfonamides; Z88.0 Allergy status to penicillin; Z88.8 Allergy status to other drugs, medicaments and biological substances; Z88.1 Allergy status to other antibiotic agents; Z79.84 Long term (current) use of oral hypoglycemic drugs; Z79.899 Other long term (current) drug therapy; F31.9 Bipolar disorder, unspecified
CPT/HCPCS: 36415; 36416; 70450; 70496; 70498; 71045; 80048; 80053; 80306; 80307; 81003; 81015; 82140; 82553; 83036; 84439; 84443; 84481; 84484; 85025; 85610; 85730; 87040; 87086; 87186; 93005; 96361; 96365; 96366; 96374; 96375; G0378; G8978-GP-CL; G8979-GP-CL; G8980-GP-CL; G8987-GO-CI; G8988-GO-CI; G8989-GO-CI; J0744; J1815; Q0162

== ENCOUNTER 2018-04-15 13:13 | Emergency (ER) | payer OTHER ==
--- NOTE | 2018-04-15 13:28 | CT ---
BRAIN CT WITHOUT IV CONTRAST: History: 42-year-old female with history of left sided weakness with hypotension. Stroke alert. Comparison: 01-18-18 FINDINGS: No focal mass or midline shift. No intra or extraaxial hemorrhage. Sinuses and mastoids are clear. IMPRESSION: No acute intracranial process. No mass or bleed. Findings were discussed with Dr. Naranjo in the Emergency Department at 1:22 p.m. Code CR POS: [facility]
[2018-04-15 13:47] LABS: #Basophils 0.1 thou/uL (0.0-0.2); #Eosinphils 0.3 thou/uL (0.0-0.7); #Lymphocytes 1.5 thou/uL (1.20-3.40); #Monocytes 0.4 thou/uL (0.11-0.59); #Neutrophils 5.1 thou/uL (1.40-6.50); %Basophils 0.9 % (0.0-1.0); %Eosinophils 3.9 % (0.0-10.0); %Lymphocytes 20.8 % (21.0-51.0); %Monocytes 4.7 % (0.0-10.0); %Neutrophils 69.6 % (42.0-75.0); Hemoglobin 11.7 g/dL (12.0-16.0); Mean Corpuscular HGB CONC 34.5 g/dL (32.0-36.0); Mean Corpuscular Hemoglobin 30.1 pg (27.0-31.0); Mean Platelet Volume 8.1 fL (7.4-10.4); Platelet Count 180 thou/uL (130-400); RBC Distribution Width 13.2 % (11.5-14.5); White Blood Cell (WBC) Count 7.4 thou/uL (4.8-10.8)
[2018-04-15 13:52] LABS: INR-International Normal Ratio 1.1; PTT 32.4 SEC (22.9-36.1); Prothrombin Time 14.3 SEC (12.0-14.7)
[2018-04-15 14:04] LABS: CKMB 2.5 ng/mL (0-6.6); Troponin I Less than 0.010 ng/mL (< 0.028)
--- NOTE | 2018-04-15 14:10 | CT ---
CT ANGIOGRAM OF HEAD CT ANGIOGRAM OF NECK: Date: 04/15/18 COMPARISON: 01/18/18. HISTORY: Stroke alert. Left-sided weakness and hypotension. TECHNIQUE: CT angiogram of head and neck are performed in the axial plane. Three-dimensional reformatted images are submitted for interpretation. FINDINGS: There is no pathologic enhancement of the brain parenchyma. Cortical murphy-white matter differentiatio n is preserved. Mucus retention cyst/polyp in the left maxillary sinus. Adequate aeration of the remaining paranasal sinuses. Coalescence of the left and right mastoid air cells likely due to remote bouts of mastoiditi s. Bilateral ocular lenses are appropriately located. Both globes are intact. Retrobulbar fat is preserv ed. Symmetric attenuation of the optic nerves and ocular rectus muscles. Aerodigestive tract is patent. No mucosal abnormality. Midline fatty raphe of the tongue appears to b e preserved. Epiglottis has a normal caliber. Preepiglottic fat is preserved. Symmetric attenuation of the submandibular glands, parotid glands, and sternocleidomastoid muscles. T hyroid gland appears to be surgically absent. Correlate clinically. No evidence of lymphadenopathy by size criteria. Cervical spine vertebral body height is maintained. There is no fracture. No high grade central canal stenosis. Varying degrees of foraminal stenosis. Evaluation is limited by technique. No acute abnormality in the lung apices are upper mediastinum. CT ANGIOGRAM: There is appropriate enhancement and luminal diameter of the aortic arch. Right Carotid: The right carotid artery origin has appropriate enhancement and luminal diameter. There is a small am ount of atherosclerotic plaque involving the distal common carotid artery, carotid bifurcation, and p roximal internal carotid artery. Nevertheless, no significant stenosis based upon NASCET criteria. Left Carotid: The left carotid artery origin has minimal atherosclerotic plaque. There is no significant stenosis. Left common carotid artery, carotid bifurcation, and proximal internal carotid artery have small amou nts of atherosclerotic plaque. No significant stenosis based upon NASCET criteria. The remainder of t he left internal carotid artery has appropriate enhancement and luminal diameter. Both cervical vertebral arteries are patent throughout the course of the neck. There is a small amoun t of calcified plaque in the proximal right vertebral artery, just beyond its origin. Bilateral subclavian arteries are unremarkable. CT ANGIOGRAM HEAD: There is symmetric enhancement and luminal diameter of the intracranial internal carotid arteries. Anterior Circulation: Symmetric enhancement and luminal diameter of the A1 and M1 segments. Proximal A2 segments are unrema rkable. The right A1 segment is slight diminutive, likely due to congenital variant. Proximal MCA bra nches are essentially symmetric. Posterior Circulation: Left PICA artery origin is unremarkable. The right PICA artery origin is difficult to appreciate. Bot h vertebral arteries supply a normal appearing basilar artery. Note, both director of counterintelligence have a origin and are symmetric/patent. IMPRESSION: Unremarkable CT angiogram of the head and neck. Results of study discussed with Dr. Naranjo on 04/15/18 at 1336 hours. CODE CR. POS: [facility]
--- NOTE | 2018-04-15 14:13 | RAD ---
UPRIGHT PORTABLE CHEST ONE VIEW: HISTORY: A 42-year-old female with a history of a syncopal episode and left-sided weakness. COMPARISON: 01/18/2018 FINDINGS: Mild increased bronchovascular markings noted bilaterally, stable. Old granulomatous disease on the right. No confluent pneumonia, overt edema, or pleural effusion. IMPRESSION: 1. Mild stable chronic changes. 2. Old granuloma in the right lung. 3. Atherosclerosis of the aorta with some ectasia, unchanged from prior study. 4. No acute process. POS: [facility]
[2018-04-15 14:17] LABS: ALT (SGPT) 10 U/L (8-55); AST (SGOT) 10 U/L (5-34); Albumin 3.2 g/dL (3.5-5.0); Alkaline Phosphatase 73 U/L (40-150); Anion Gap 18 mmol/L (10-20); BUN (Urea Nitrogen) 87 mg/dL (7.0-18.7); Bilirubin, Total 0.5 mg/dL (0.2-1.2); CK (CPK) 88 U/L (29-168); Calc. Creatinine Clearance 0 mL/min (70-130); Calcium 8.4 mg/dL (7.8-10.44); Carbon Dioxide 13 mmol/L (22-29); Chloride 104 mmol/L (98-107); Estimated GFR-MDRD 10; Globulin 2.6 g/dL (2.4-3.5); Glucose 259 mg/dL (70-105); Lipase 220 U/L (8-78); Potassium 3.8 mmol/L (3.5-5.1); Protein, Total 5.8 g/dL (6.0-8.3); Sodium 131 mmol/L (136-145)
[2018-04-15 14:38] LABS: Bilirubin Negative (Negative); Blood, Urine Small (Negative); Clarity CLOUDY (Clear); Glucose, Urine (Dipstick) 250 mg/dL (Negative); Leukocyte Moderate (Negative); Nitrite Negative (Negative); Protein, Urine (Dipstick) 30 mg/dL (Neg-Trace); Specific Gravity, Urine 1.026 (1.002-1.036); Urobilinogen 0.2 mg/dL (0.2-1.0); pH, Urine 5.5 (5.0-9.0)
[2018-04-15 14:39] LABS: Bacteria/HPF Rare-Few HPF (None Seen); Hyaline Casts/LPF 4-6 HYALINE CAST LPF (0-3 Hyaline); Pathc Cast-AUWi Flag 1.16 (0-2.49)
[2018-04-15 14:40] LABS: Yeast-AUWi Flag 348.9 (0-25.0)
[2018-04-15 14:47] LABS: Pregu Control Background? CLEAR/WHITE (CLR/WHITE); Pregu Control Bar Appear? YES (CONTROL BAR); RBC/HPF 0-3 HPF (0-3); Specific Gravity 1.026 (1.002-1.036); Yeast-All Forms Rare HPF (None Seen)
[2018-04-15 14:49] LABS: Pregnancy Test - Urine (BHCG) Negative (Negative)
== END 2018-04-15 16:03 | disposition left against medical advice (07) ==
LOC: ERS 13:13
DX: I95.9 Hypotension, unspecified (principal); N19 Unspecified kidney failure; E11.9 Type 2 diabetes mellitus without complications; I25.2 Old myocardial infarction; E03.9 Hypothyroidism, unspecified; J45.909 Unspecified asthma, uncomplicated; I50.9 Heart failure, unspecified; E78.5 Hyperlipidemia, unspecified; F32.9 Major depressive disorder, single episode, unspecified; F17.210 Nicotine dependence, cigarettes, uncomplicated; Z79.4 Long term (current) use of insulin
CPT/HCPCS: 36415; 36416; 70450; 70496; 70498; 71045; 80053; 81003; 81015; 81025; 82553; 83605; 83690; 84484; 85025; 85610; 85730; 93005; 96360; 96361

== ENCOUNTER 2019-06-29 18:04 | Inpatient (IN) | payer OTHER ==
[2019-06-29 18:25] LABS: #Eosinphils 0.1 thou/uL (0.0-0.7); #Lymphocytes 2.4 thou/uL (1.20-3.40); #Monocytes 0.2 thou/uL (0.11-0.59); #Neutrophils 3.8 thou/uL (1.40-6.50); %Basophils 0.7 % (0.0-1.0); %Eosinophils 0.9 % (0.0-10.0); %Lymphocytes 36.9 % (21.0-51.0); %Monocytes 3.5 % (0.0-10.0); Hemoglobin 12.4 g/dL (12.0-16.0); Mean Corpuscular HGB CONC 34.7 g/dL (32.0-36.0); Mean Corpuscular Hemoglobin 32.5 pg (27.0-31.0); Mean Corpuscular Volume 93.6 fL (78.0-98.0); Mean Platelet Volume 8.9 fL (7.4-10.4); Platelet Count 153 thou/uL (130-400); RBC Distribution Width 13.4 % (11.5-14.5); Red Blood Cell (RBC) Count 3.83 mill/uL (4.20-5.40); White Blood Cell (WBC) Count 6.5 thou/uL (4.8-10.8)
[2019-06-29 18:32] LABS: Prothrombin Time 13.4 SEC (12.0-14.7)
[2019-06-29 18:41] LABS: ALT (SGPT) 122 U/L (8-55); AST (SGOT) 78 U/L (5-34); Albumin 4.1 g/dL (3.5-5.0); Alkaline Phosphatase 128 U/L (40-110); Anion Gap 14 mmol/L (10-20); BUN (Urea Nitrogen) 28 mg/dL (7.0-18.7); Bilirubin, Total 0.8 mg/dL (0.2-1.2); CK (CPK) 1873 U/L (29-168); Calc. Creatinine Clearance 0 mL/min (70-130); Calcium 9.3 mg/dL (7.8-10.44); Carbon Dioxide 24 mmol/L (22-29); Chloride 105 mmol/L (98-107); Estimated GFR-MDRD 31; Globulin 2.7 g/dL (2.4-3.5); Glucose 150 mg/dL (70-105); Potassium 3.7 mmol/L (3.5-5.1); Protein, Total 6.8 g/dL (6.0-8.3); Sodium 139 mmol/L (136-145)
[2019-06-29 18:53] LABS: Acetaminophen Less than 6.0 mcg/mL (10.0-30.0); Alcohol Less than 10 mg/dL (Less than 10); Lipase 28 U/L (8-78); Salicylate Less than 8.0 mg/dL (15.0-30.0)
--- NOTE | 2019-06-29 18:58 | CT ---
HEAD CT WITHOUT CONTRAST: 06/29/19 COMPARISON: 04/15/18 HISTORY: Stroke alert. TECHNIQUE: Axial CT imaging obtained at 5 mm intervals from the vertex through the skull base without contrast. FINDINGS: The visualized paranasal sinuses/mastoid air cells are well aerated. There is no displaced calvarial fracture, intracranial hemorrhage, midline shift, or mass effect. No significant interval change when compared to the prior study. IMPRESSION: No acute findings. Results were called to Dr. Saldaña at approximately 6:43 p.m., 06/29/19. Code CR POS: [facility]
[2019-06-29] MEDS ORDERED: cefTRIAXone\\ROCEPHIN 1 GM VIAL ONE (19:08)
--- NOTE | 2019-06-29 19:12 | CT ---
CT ANGIOGRAM HEAD CT ANGIOGRAM NECK 06/29/19 COMPARISON: 04/15/18 HISTORY: Acute stroke protocol. TECHNIQUE: Axial CT imaging at 1.25 mm intervals obtained from the lung apices through the vertex with IV contr ast using CT angiogram protocol. Coronal and sagittal 3D reformatted imaging obtained. FINDINGS: There is a prominent incompletely imaged pericardial effusion, significantly enlarged when compared t o the 04/15/18 examination. Imaging of the chest is thus advised. Imaged lung parenchyma grossly unrema rkable. The origin of the innominate artery, right subclavian artery, right common carotid artery, left commo n carotid artery, and left subclavian artery demonstrate no hemodynamically significant stenosis. Ady ateral vertebral arteries are patent. The right vertebral artery is dominant. There is scattered athe rosclerotic calcification seen including at the origin of the left subclavian artery, left common car otid artery and in the region of the mid/distal bilateral common carotid arteries. On the basis of NASCET criteria, there is no hemodynamically significant stenosis involving the inter nal carotid artery or the common carotid artery on either side. The parotid glands, submandibular glands, tonsillar pillars, and hyoid bone appear grossly unremarkab le. The aerodigestive tract is not optimally assessed on this exam. No lymphadenopathy is evident wit hin the neck. Review of the osseous structures demonstrates polypoid mucosal thickening within the alveolar recess of the left maxillary sinus. Numerous dental caries and periapical abscesses are noted. The basilar artery is relatively diminutive but patent. There are patent bilateral posterior communic ating arteries. The posterior cerebral arteries appear patent bilaterally. There is no central vascul ar occlusion or saccular aneurysm involving the posterior circulation. There is mild atherosclerotic calcification involving the cavernous carotid artery on the left. The M1 segment and MCA bifurcation appears grossly unremarkable bilaterally. The A1 segment is patent bilaterally. Distal ADAN and MCA branches appear patent. There is an azygos ADAN noted. No saccular an eurysm, high grade stenosis or vascular occlusion is evident involving the anterior circulation. No acute osseous abnormality is seen. IMPRESSION: 1. Prominent incompletely imaged pericardial effusion, larger than on prior imaging. 2. No central arterial occlusion intracranially. 3. No hemodynamically significant stenosis is seen within the neck on the basis of NASCET criter ia. Findings discussed with Dr. Saldaña at 6:58 p.m., 06/29/19. Code CR POS: [facility]
--- NOTE | 2019-06-29 19:18 | RAD ---
Exam: Chest one view HISTORY:Fall, AMS Comparison: 04/15/2018 FINDINGS: Lungs: Patchy bilateral perihilar densities, and a superimposed left basilar density. Stable punctate density of the lateral right mid lung zone suggestive of granulomatous calcification Cardiac silhouette:Enlarged Pulmonary vessels: Engorged Pleural Spaces: Blunting of left lateral costophrenic sulcus Pneumothorax: None Osseous abnormalities: None of acuity. IMPRESSION: Findings favor decompensated CHF. Recommend follow-up to resolution. Transcribed Date/Time: 06/29/2019 7:38 PM
--- NOTE | 2019-06-29 19:30 | PDOC.FPRHP ---
- History of Present Illness Chief Complaint: AMS History of Present Illness: Mrs. Green is a 44 y/o female w/ a PMH significant for DM2, schizoaffective disorder, hypothyroidism, HTN, and HLD who presents to the ED via EMS after she was found to be altered in her car. She was last seen normal at approximately 0001 on 06/28. She has hearing loss at baseline, and much of the HPI had to be obtained from ED staff and family who were present at the time of evaluation. Per the patient's family, she has poor medication compliance. ED Course: While in the ED, Mrs. Green was unable to communicate verbally, although she could read lips. She was found to be hypothermic and placed in a "bear-hugger" warming blanket. Additionally, she was given 2L IVF and single doses of Vancomycin and Ceftriaxone. CTA: Pericardial Effusion CT Head: NAF CXR: Cardiomegaly - Allergies/Adverse Reactions Allergies Allergy/AdvReac Type Severity Reaction Status Date / Time amoxicillin trihydrate Allergy Severe Anaphylaxis Verified 06/29/19 23:44 [From Trimox] doxycycline Allergy Severe Anaphylaxis Verified 06/29/19 23:44 Penicillins Allergy Severe Anaphylaxis Verified 06/29/19 23:44 sulfamethoxazole Allergy Severe Anaphylaxis Verified 06/29/19 23:44 [From Bactrim] trimethoprim [From Bactrim] Allergy Severe Anaphylaxis Verified 06/29/19 23:44 - Home Medications Medication Instructions Recorded Confirmed Type Levothyroxine Sodium 200 mcg PO DAILY #60 tablet 09/04/16 06/29/19 Rx Insulin Detemir 100 UNITS/ML 50 unit SQ HS 06/29/19 06/29/19 History [Levemir] Insulin Detemir 100 UNITS/ML 50 units SC QAM 06/29/19 06/29/19 History [Levemir] Comments: Metformin 1000 mg BID Lantus 42 untis sq at bedtime Levothyroxine 175 mcg - History PMHx: In past medical charts pt has hx of Schizoaffective disorder, Anxiety, Insomnia, Diabetes mellitus type II, Hypothyroidism, CHF with preserved EF borderline PSHx: Per past medical charts pt has hx of Hysterectomy, Cholecystectomy, Hx of bianca gangrene s/p debridement FHx: Non-contributory Social: Patient has history in past charts of 1/2 PPD smoking history for the past 30 years. Has past hx in past medical charts of occasional drinking, Denies any illicit drug use. - Review of Systems ROS unobtainable: due to mental status - Vital signs BP: [112/77] HR: [70] RR: [16] Tmax: [96.6] Pox: [99]% on [RA] Wt: [] - Physical Exam Constitutional: NAD, other (Able to read lips and respond to basic commands) HEENT: normocephalic and atraumatic, PERRLA, EOMI, conjunctiva clear, no scleral icterus, grossly normal vision, normal nasal mucosa, MMM, oropharynx clear, other (pt unable to hear. Has known hearing loss) Neck: supple, trachea midline, no LAD, no JVD Chest: no-tender to palpation, no lesions Heart: RRR, normal S1/S2, no murmurs/rubs/gallops, pulses present, other (Mild edema noted on the lower extremities, bilaterally) Lungs: CTAB, no respiratory distress, good air movement, no rales/rhonchi, no wheezing, no retractions Abdomen: soft, non-tender, bowel sounds present, no masses/distention Musculoskeletal: normal structure, other (Mild right-sided weakness - may be baseline or secondary to poor communication in ED) Neurological: CN II-XII intact, normal sensation, other (Difficult to assess entirely) -Neurological: ED doc reports noting some Right sided weakness. Skin: capillary refill <2 seconds, no jaundice, other (Tinea Pedis noted on lower extremities, bilaterally) Heme/Lymphatic: no unusual bruising or bleeding, no purpura, no petechia, no LAD FMR H&P: Results - Labs Result Diagrams: 06/30/19 05:07 06/30/19 05:07 Lab results: WBC 6.5 thou/uL (4.8-10.8) 06/29/19 18:14 Hgb 12.4 g/dL (12.0-16.0) 06/29/19 18:14 Hct 35.9 % (36.0-47.0) L 06/29/19 18:14 MCV 93.6 fL (78.0-98.0) 06/29/19 18:14 Plt Count 153 thou/uL (130-400) 06/29/19 18:14 Neutrophils % 58.0 % (42.0-75.0) 06/29/19 18:14 Sodium 139 mmol/L (136-145) 06/29/19 18:14 Potassium 3.7 mmol/L (3.5-5.1) 06/29/19 18:14 Chloride 105 mmol/L (98-107) 06/29/19 18:14 Carbon Dioxide 24 mmol/L (22-29) 06/29/19 18:14 BUN 28 mg/dL (7.0-18.7) H 06/29/19 18:14 Creatinine 1.79 mg/dL (0.6-1.1) H 06/29/19 18:14 Glucose 150 mg/dL (70-105) H 06/29/19 18:14 Calcium 9.3 mg/dL (7.8-10.44) 06/29/19 18:14 Total Bilirubin 0.8 mg/dL (0.2-1.2) 06/29/19 18:14 AST 78 U/L (5-34) H 06/29/19 18:14 ALT 122 U/L (8-55) H 06/29/19 18:14 Alkaline Phosphatase 128 U/L (40-110) H 06/29/19 18:14 Ammonia 22 umol/L (18-72) 06/29/19 19:12 Creatine Kinase 1873 U/L (29-168) H 06/29/19 18:14 Serum Total Protein 6.8 g/dL (6.0-8.3) 06/29/19 18:14 Albumin 4.1 g/dL (3.5-5.0) 06/29/19 18:14 Lipase 28 U/L (8-78) 06/29/19 18:14 Additional comment: Laboratory Tests 06/29/19 19:20 Urine Color Yellow Urine Clarity Turbid A Urine pH 5.5 Ur Specific [place] 1.047 H Urine Protein 70 A Urine Blood 1+ A Urine Urobilinogen 2.0 A Ur Leukocyte Esterase 500 A Urine WBC Greater than 50 A Ur Squamous Epith Cells 7-10 A Urine Bacteria 4+ A Hyaline Casts 0-3 - EKG Interpretation EKG: Low voltage QRS w/ incomplete RBBB - Radiology Interpretation CT scan - head Status: report reviewed by me (NAF) Other Status: report reviewed by me (CTA Head/Neck: Pericardial Effusion) Chest x-ray Status: report reviewed by me (Findings favor Decompensated CHF) FMR H&P: A/P - Problem List (1) JESSICA (acute kidney injury) Current Visit: No Status: Acute Code(s): N17.9 - ACUTE KIDNEY FAILURE, UNSPECIFIED (2) Diabetes type 2, uncontrolled Current Visit: No Status: Chronic Code(s): E11.65 - TYPE 2 DIABETES MELLITUS WITH HYPERGLYCEMIA (3) Hyperlipidemia Current Visit: No Status: Chronic Code(s): E78.5 - HYPERLIPIDEMIA, UNSPECIFIED (4) Hypothyroidism Current Visit: No Status: Chronic Code(s): E03.9 - HYPOTHYROIDISM, UNSPECIFIED - Plan 1. AMS -Patient last seen normal at 0001 on 06/29 -Likely 2/2 UTI vs Myxedema Coma vs Hypo/Hyperglycemia. Pt has poor medication compliance per Family. UDS pending. Low suspicion for drug abuse. -Physical exam was remarkable for lower extremity edema and mild right-sided weakness, difficult to asses if baseline -Blood Cultures: Pending -Urine Cultures: Pending -CTA Head/Neck: Pericardial Effusion -PT/OT Consult: Pending -Speech Therapy Consult: Pending -Case Management Consult: Pending -s/p Vancomycin and Ceftriaxone in ED, consider adjusting based on changing clinical picture 2. Rhabdomyolysis -Poor PO intake likely and recently found in car. -CPK: +1000 -Cr: 1.79 -LR @ 75 ml/hr 2/2 to concern from some fluid overload and pericardial effusion. 3. UTI -UA positive. Urine cx pending -Will tx with Vanc and Rocephin due to drug allergies. -Possible cause for AMS 4. JESSICA -1.79. Likely 2/2 UTI and Rhabdo. Continue to trend Cr -On gentle hydration 2/2 pericardial effusion. 5. Hypothyroidism -Medication non-compliance likely. 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 Pericardial Effusion -CV surgery consulted from ER- Dr. Shelby. Follow recs -ECHO pending. 7. Transaminintis -LFT elevated from prior values from previous visits. -Ammonia 22. -Will check Hepatitis Panel. -Will get abdomen US to assess liver. 8. DM2 -Probably medication non-compliance likely -POC Glucose: 130 on 06/29 -Restart home medication regimen -Mild Sliding Scale Insulin -Accuchecks Q4H 9. HLD -continue home meds Code: Full Diet: NPO Activity: Strict Bed Rest DVT PPx: SCDs and Lovenox 40 mg SC Dispo: Patient admitted to [facility]. History and physical exam were difficult to obtain due to patient's documented hearing loss and non-verbal status. Await lab results and correlate clinically. Expected LOS > 48H FMR H&P: Upper Level - Pertinent history I was present with the corporate development intern during the HPI. Pt has known bilateral hearing loss. Able to read lips and answer yes or no questions. Pt is altered at this time. Hx obtained from family. Reports that she has been telling her sister the last week has been feeling more sleepy. Sister reports neighbor found her altered in her car. - Pertinent findings Pt found to be hypothermic. BP stable. Pt alert but altered. Pt has bilateral hearing loss that is known but able to read lips. She appeared to understand my questions and responses seemed appropriated. Neuro: Strength 4/5 bilaterally. Grossly normal sensation. Motor a little slowed. Pt appears a little weak. CN 2-12 grossly intact. Cardio: RRR, no murmurs or gallops Resp: CTA-B, no wheezes or crackles. - Plan Date/Time: 06/29/191927 IRamsey, PGY-3, have evaluated this patient and agree with findings/ plan as outlined by corporate development intern resident. Pertinent changes/additions are listed here. At this time we are admitting pt for AMS, UTI, Rhabdo, JESSICA and Pericardial effusion. During history we learned pt is not compliant with medications. Pt has history of hypothyroidism. TSH pending at this time. Concern for myxedema coma. UDS pending. AMS could be secondary to a few things. She is also diabetic. Could be 2/2 hypo/hyperglycemia. Pt also has UTI. Started on Vanc and Rocephin 2/2 allergies to other abx. Pt has Rhabdo and JESSICA. Started on gentle hydration due to concern for pericardial effusion found on CTA head/ neck. Dr. Shelby was consulted and evaluated pt while we were in the room. Follow recs. ECHO pending. Pt was also found to have elevated liver enzymes higher than prior visits. Ammonia level 22. Will get abdomen US to evaluate. Will trend labs. I edited the above plan. See above for detailed plan. Addendum - Attending - Attending Attestation Date/Time: 06/29/19 2706 I personally evaluated the patient and discussed the management with Dr. Strong and Dr. Ruffin I agree with the History, Examination, Assessment and Plan documented above with any addition or exceptions noted below. 44 yo female with multiple medical conditions with history of noncompliance related to mental health issues presents for altered mental status. Patient found altered earlier today by a friend. In the ER patient was found to have multiple metabolic, endocrine, and CV abnormalities. VS, Labs, imaging reviewed. Agree with PE as documented by resident. 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 Previous hx of noncompliance with significantly elevated TSH, however never to this degree. Family members report she does live alone. The do check on her frequently. Multiple complications related to current condition. Will treat with IV LT4. Loading dose of 200 mcg. Will then treat with 75% of 1.6 mcg /kg /day for next 3 to 5 days depending on response. Trend TSH/FT3/FT4 every 48 hours to make sure effective. IV T3 as needed but use with caution due to risk. Will treat over the next 48 hours with stress dose of hydrocortisone due to low cortisol and concern for hypothalmus-pitutary dysfunction. Monitor. 2. Pericardial effusion: No evidence of tamponade at present. CT surg following. Stat ECHO pending. Stable HR and BP currently. Adjust home meds as needed. CM to be consulted to help with social issues. Patient does not appear to be able to care for herself appropriately. Fareed
[2019-06-29 19:38] LABS: Bacteria/HPF 4+ HPF (None Seen); Bilirubin Negative (Negative); Blood, Urine 1+ (Negative); Clarity Turbid (Clear); Glucose, Urine (Dipstick) Normal (Negative); Leukocyte 500 Leu/uL (Negative); Nitrite 1+ (Negative); Protein, Urine (Dipstick) 70 mg/dL (Neg-Trace); RBC/HPF 0-3 HPF (0-3); WBC/HPF Greater than 50 HPF (0-3)
[2019-06-29 19:49] LABS: Amphetamine Not Detected (NotDetected); Barbiturates Screen Not Detected (NotDetected); Benzodiazepine Screen Not Detected (NotDetected); Cocaine Metabolite Screen Not Detected (NotDetected); Medtox Control Line Valid? VALID (VALID); Medtox Reader # READER 4; Methadone Not Detected (NotDetected); Methamphetamine Not Detected (NotDetected); Opiate Screen Not Detected (NotDetected); Oxycodone Screen Not Detected (NotDetected); Phencyclidine (PCP) Not Detected (NotDetected); THC/Cannabinoid Screen Not Detected (NotDetected); Tricyclic Screen Not Detected (NotDetected)
[2019-06-29] MEDS ORDERED: Acetaminophen 650 MG Suppository PR PRN (21:02)
[2019-06-29] MEDS ORDERED: Bisacodyl 10 MG SUPP PR PRN (21:02)
[2019-06-29] MEDS ORDERED: Ondansetron PF 4 MG/2 ML Vial IVP PRN (21:02)
[2019-06-29 21:25] VITALS: BMI 31.1
[2019-06-29] MEDS ORDERED: FLU VACC QS2019-20(6MOS UP)/PF 60 MCG/0.5 ML SYRINGE IM ONE (21:30)
[2019-06-29] MEDS ORDERED: Dextrose 5% in Water 1,000 ML IV PRN (21:33)
[2019-06-29] MEDS ORDERED: Dextrose 50% Abboject 50 ML SYRINGE SLOW IVP PRN (21:33)
[2019-06-29] MEDS ORDERED: Famotidine/PF 20 mg/2ml Vial SLOW IVP SCH (22:00)
[2019-06-29 22:56] LABS: HBCM Index 0.05 S/CO (0-0.79); HBSAg Index 0.17 S/CO (0-0.99); Hep A IgM AB Non-Reactive (NonReactive); Hep B Surf Ag Non-Reactive S/CO (NonReactive); Hep C IgG Ab Non-Reactive (NonReactive); Hep C Index 0.08 S/CO (0-0.79); Hepatitis B Core IgM Abs Non-Reactive (NonReactive)
[2019-06-29] MEDS ORDERED: Lactated Ringer's 1,000 ML IV SCH (23:00)
[2019-06-29] MEDS: Nicotine 14 MG PATCH TD SCH (23:13)
[2019-06-29] MEDS ORDERED: Levothyroxine Sodium 200 MCG VIAL IVP SCH (23:45)
[2019-06-29] MEDS ORDERED: cefTRIAXone\\ROCEPHIN 1 GM in Sodium Chloride 0.9% 100 ML IVPB SCH (23:59)
[2019-06-30 05:26] LABS: #Eosinphils 0.1 thou/uL (0.0-0.7); #Lymphocytes 3.2 thou/uL (1.20-3.40); #Monocytes 0.3 thou/uL (0.11-0.59); #Neutrophils 3.2 thou/uL (1.40-6.50); %Basophils 0.5 % (0.0-1.0); %Lymphocytes 46.8 % (21.0-51.0); %Monocytes 4.2 % (0.0-10.0); %Neutrophils 47.5 % (42.0-75.0); Hemoglobin 11.8 g/dL (12.0-16.0); Mean Corpuscular HGB CONC 34.7 g/dL (32.0-36.0); Mean Corpuscular Hemoglobin 32.7 pg (27.0-31.0); Mean Corpuscular Volume 94.3 fL (78.0-98.0); Mean Platelet Volume 8.6 fL (7.4-10.4); Platelet Count 148 thou/uL (130-400); RBC Distribution Width 13.3 % (11.5-14.5); White Blood Cell (WBC) Count 6.8 thou/uL (4.8-10.8)
[2019-06-30 05:49] LABS: ALT (SGPT) 114 U/L (8-55); AST (SGOT) 86 U/L (5-34); Albumin 3.8 g/dL (3.5-5.0); Alkaline Phosphatase 122 U/L (40-110); Anion Gap 12 mmol/L (10-20); BUN (Urea Nitrogen) 24 mg/dL (7.0-18.7); Bilirubin, Total 0.6 mg/dL (0.2-1.2); CK (CPK) 1755 U/L (29-168); Calc. Creatinine Clearance 63 mL/min (70-130); Calcium 8.7 mg/dL (7.8-10.44); Carbon Dioxide 22 mmol/L (22-29); Chloride 108 mmol/L (98-107); Estimated GFR-MDRD 42; Globulin 2.3 g/dL (2.4-3.5); Glucose 78 mg/dL (70-105); Potassium 3.4 mmol/L (3.5-5.1); Protein, Total 6.1 g/dL (6.0-8.3); Sodium 139 mmol/L (136-145)
--- NOTE | 2019-06-30 05:51 | PDOC.FM ---
- Subjective Subjective: Nursing reports pt has become more responsive overnight. They also report she has passed bedside swallow. She reports ~270ml of urine since the start of her shift. The pt was able to give more history today. She reports feeling tired this past week. She also reports falling twice this week, once bumping her head , and once falling to the side. She denies any pain from those falls. Currently she denies weakness, changes in sensation, nausea, vomiting, chest pain, SOB, or fevers. 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 In addition, nursing reports family describe pt as having trouble moving her feet and legs at home. Pt states she has a family reunion this Friday and wants to make it there if possible. - Objective MAR Reviewed: Yes Vital Signs & Weight: Vital Signs (12 hours) Temp Pulse Resp BP Pulse Ox 06/29/19 20:50 98.5 F 71 12 106/71 94 L Weight Weight 74.928 kg Most Recent Monitor Data Heart Rate from ECG 60 NIBP 144/98 NIBP BP-Mean 113 Respiration from ECG 9 SpO2 96 Result Diagrams: 06/30/19 05:07 06/30/19 05:07 Phys Exam - Physical Examination Constitutional: NAD (Hard of hearing) Poor dentition, dry mucus membranes, left eyelide shut Neck: no nodes, no JVD, supple Good air movement, slight basilar crackles, worse on the left Cardiovascular: RRR, no significant murmur (Slight diminished heart sounds) Gastrointestinal: soft, non-tender, no distention, positive bowel sounds Musculoskeletal: no edema, pulses present Neurological: non-focal, normal sensation, moves all 4 limbs CNII-XII grossly intact, strength is 5/5 in all 4 extremities Psychiatric: normal affect, A&O x 3 Skin: cap refill <2 seconds Dx/Plan (1) JESSICA (acute kidney injury) Code(s): N17.9 - ACUTE KIDNEY FAILURE, UNSPECIFIED Status: Acute (2) Adult myxedema Code(s): E03.9 - HYPOTHYROIDISM, UNSPECIFIED Status: Acute (3) Diabetes type 2, uncontrolled Code(s): E11.65 - TYPE 2 DIABETES MELLITUS WITH HYPERGLYCEMIA Status: Chronic (4) Hypothyroidism Code(s): E03.9 - HYPOTHYROIDISM, UNSPECIFIED Status: Chronic - Plan Plan: Guadalupe Green is a 44 yo female with a pmh of DM2, hypothyroidism, HLD, Schizoaffective who was admitted for AMS Hospital day 1 AMS, likely 2/2 myxedema coma -TSH 529 -Free T3 <1.0, Free T4 <0.4 -S/P 100 mcg levothyroxine, will continue 90mcg moving forward -Continue stress dose of Hydrocortisone, pending ACTH Rhabdomyolysis -CPK 1873 -Continue fluids, hx of Mixed heart failure and current pericardial effusion -Increasing rate of LR to 100ml/hr UTI -Will continue rocephin, DC vancomycin JESSICA, likely 2/2 UTI, rhabdo, and decreased PO intake -Continue gentle hydration -Trend with BMP Hypothyroidism -As above Pericardial effusion -Pending echo, appears to be a chronic issue -Does appear slightly larger per CXR -Dr. Shelby consulted Transaminitis -Negative hepatitis panel -Ammonia 22 -Pending abdominal US DM2 -Hx of non-compliance, starting pt at 10units of lantus, will titrate up -Mild SSI -Pending Hgb A1c HLD Code: Full Prophylaxis: SCDs Family: None at bedside Fluids: LR 100ml/hr Diet: CC 1800 kcal Disposition: DC in 2-3 days PCP: REINIER Addendum - Attending - Attending Attestation Date/Time: 06/30/19 1102 I personally evaluated the patient and discussed the management with Dr. Dash. I agree with the History, Examination, Assessment and Plan documented above with any addition or exceptions noted below. Patient here for suspected myxedema coma with history of similar presentation. She has not been taking her medications. She is more alert and responsive this morning. Continue thyroid replacement with frequent lab checks as well as pulse dose Solu-Cortef for today. Echo pending but this likely does not signify impending tampenade since she has had this for so long. Continue insulin and other chronic meds and adjust as necessary. Discussed with sister that patient will need placement to help with med assistance and ability to care for her.
[2019-06-30] MEDS ORDERED: Levothyroxine 100 MCG SDV IVP SCH ×2 (06:00)
[2019-06-30 06:20] LABS: Hemoglobin A1c 11.1 % (4.0-6.0)
[2019-06-30] MEDS: Hydrocortisone Sod Succ/PF 100 mg/2 ml Vial IVP SCH ×3 (06:31→21:11)
--- NOTE | 2019-06-30 07:13 | ULT ---
ULTRASOUND ABDOMEN COMPLETE: DATE: 06/30/2019 HISTORY: 50-year-old female with transaminitis (abnormal liver function tests) FINDINGS: Gallbladder: Surgically absent. Liver: Normal parenchymal echogenicity. Bilateral kidneys: No hydronephrosis. Pancreas: Nonspecific sonographic appearance. Common duct caliber: 5 mm. Abdominal aorta: No aneurysm Inferior vena cava: Unremarkable where visualized. Spleen: No splenomegaly IMPRESSION: 1. Status post cholecystectomy. 2. Otherwise negative.
[2019-06-30] MEDS ORDERED: Insulin Glargine 10 UNITS in Pre-Filled Syringe 1 EACH SC SCH (09:00)
[2019-06-30] MEDS ORDERED: Vancomycin HCl 1 GM in Sodium Chloride 0.9% 250 ML 250 ML IVPB SCH (09:00)
[2019-06-30] MEDS: Potassium Chloride 20 MEQ TAB PO SCH ×2 (09:52→17:16)
[2019-06-30] MEDS: Enoxaparin Sodium 40 MG/0.4 ML SYRINGE SC SCH (09:52)
[2019-06-30] MEDS: Lactated Ringer's 1,000 ML IV SCH ×2 (09:54→17:17)
--- NOTE | 2019-06-30 12:13 | CON ---
DATE OF CONSULTATION: 06/30/2019 CONSULTING PHYSICIAN: [facility]. REASON FOR CONSULTATION: Myxedema. HISTORY OF PRESENT ILLNESS: The patient is a 44-year-old female, who came in yesterday with a profoundly elevated TSH, significant mental slowing, bradycardia, and hypothermia. She has been out of her thyroid medication for at least a month and I suspect even longer. She is a very poor historian. She has been started on Synthroid after receiving a dose of IV levothyroxine last night. PAST MEDICAL HISTORY: 1. Schizoaffective disorder. 2. Anxiety. 3. Insomnia. 4. Diabetes mellitus type 2. 5. Hypothyroidism. 6. Congestive heart failure with chronic pericardial effusion. PAST SURGICAL HISTORY: 1. Hysterectomy. 2. Cholecystectomy. 3. [place] gangrene requiring debridement. SOCIAL HISTORY: One half pack per day smoker. Occasionally drinks alcohol. FAMILY MEDICAL HISTORY: Unremarkable. MEDICATIONS: She is taking none prior to admission, but previously on, 1. Metformin. 2. Lantus insulin. 3. Levothyroxine. ALLERGIES: AMOXICILLIN, DOXYCYCLINE, AND BACTRIM. REVIEW OF SYSTEMS: Negative for bleeding, weight gain, weight loss, hematemesis, melena, hematochezia, hematuria, or dysuria. PHYSICAL EXAMINATION: VITAL SIGNS: Temperature 97.0, pulse 74, blood pressure 121/84, and O2 saturation 96%. GENERAL APPEARANCE: She has some periorbital edema. She has some swelling around the lips. Pupils are reactive. Oropharynx is clear. NECK: No adenopathy, JVD, or bruits. LUNGS: Clear without wheezing or rhonchi. CARDIAC: S1 and S2. Slightly bradycardic without audible murmur. ABDOMEN: Soft, obese, nontender, and nondistended. EXTREMITIES: No clubbing, cyanosis, or swelling. NEUROLOGIC: Deep tendon reflexes in the elbows and patellar are about 1+/4. Sensation is fully intact throughout. LABORATORY DATA: White blood cell count 6.8, hematocrit 34, and platelet count 148. INR is 1.0. Sodium 139, potassium 3.4, chloride 108, CO2 of 22, BUN 24, creatinine 1.4, glucose 78, AST 86, ALT 114. CPK 1755. Hemoglobin A1c is 11.1. ASSESSMENT: 1. The patient is presenting with severe hypothyroidism with symptoms including bradycardia, facial swelling, etc. 2. Schizoaffective disorder. 3. Medication noncompliance. PLAN: 1. I agree with the plan for the thyroid supplementation. 2. The steroids can be tapered rapidly. Usually steroids are only needed in hyperthyroidism. 3. From my standpoint, she can be transferred out to the medical floor. Job ID: [id number]
--- NOTE | 2019-06-30 16:02 | PDOC.PALCO ---
Palliative Care Consult - Consult Details Requesting Physician: [facility] Reason for Consult: symptom management, assistance with communication prognosis/ disease, family support Family Members Present: Sister Jacque (MPOA) and Sydney sister - Pertinent HPI 44 year old female who had an altered mental status and family called EMS. Patient has a significant medical history and is non compliant with medications and follow up care. Emergency room evaluation and workup leading to admission to the [facility] to manage the altered mental status, rhabdomyolysis, UTI renal compromise. - Pertinent PMH Schizoaffective disorder, Anxiety, Diabetes II, CHF, Hypothyroid, - Social History Smoking Status: Current every day smoker Smoking: cigarettes Alcohol Use: occasional Drug Use History: none Living Situation: independent (Lives in a camper with no running water) - Medications MAR Reviewed: Yes - Allergies Allergies/Adverse Reactions: Allergies Allergy/AdvReac Type Severity Reaction Status Date / Time amoxicillin trihydrate Allergy Severe Anaphylaxis Verified 06/29/19 23:44 [From Trimox] doxycycline Allergy Severe Anaphylaxis Verified 06/29/19 23:44 Penicillins Allergy Severe Anaphylaxis Verified 06/29/19 23:44 sulfamethoxazole Allergy Severe Anaphylaxis Verified 06/29/19 23:44 [From Bactrim] trimethoprim [From Bactrim] Allergy Severe Anaphylaxis Verified 06/29/19 23:44 - Subjective Awake, oriented to self and place, delayed response. Hard of hearing. 10 point review of systems with no pertinent positives at time of assessment. - Objective Vital Signs: Vital Signs - Most Recent Temp Pulse Resp BP Pulse Ox 97.8 F 74 12 112/81 95 06/30/19 15:27 06/30/19 11:30 06/29/19 20:50 06/30/19 11:30 06/30/19 11:30 Palliative Performance Scale: 50 - Physical Exam Constitutional: confusion HEENT: moist MMs, sclera anicteric Respiratory: no wheezing, clear to auscultation bilateral, unlabored breathing Cardiovascular: no significant murmur Gastrointestinal: soft, non-tender, positive bowel sounds Musculoskeletal: no edema, pulses present Neurological: moves all 4 limbs Deviation from normal: Mildly confused, but oriented to self and place. Skin: cap refill <2 seconds - Problem List (1) Palliative care encounter Code(s): Z51.5 - ENCOUNTER FOR PALLIATIVE CARE Current Visit: Yes Status: Acute (2) Bipolar 1 disorder Code(s): F31.9 - BIPOLAR DISORDER, UNSPECIFIED Current Visit: No Status: Acute (3) Encephalopathy acute Code(s): G93.40 - ENCEPHALOPATHY, UNSPECIFIED Current Visit: No Status: Acute (4) Schizophrenia Code(s): F20.9 - SCHIZOPHRENIA, UNSPECIFIED Current Visit: No Status: Acute (5) Congestive heart failure with left ventricular diastolic dysfunction Code(s): I50.30 - UNSPECIFIED DIASTOLIC (CONGESTIVE) HEART FAILURE Current Visit: No Status: Chronic Qualifiers: Congestive heart failure chronicity: chronic Qualified Code(s): I50.32 - Chronic diastolic (congestive) heart failure (6) Diabetes type 2, uncontrolled Code(s): E11.65 - TYPE 2 DIABETES MELLITUS WITH HYPERGLYCEMIA Current Visit: No Status: Chronic - Plan/Recommendations Plan: Discussed option of [facility] program to follow patient at discharge. This would allow a nurse practitioner to visit the patient for the following 90 days to attempt to secure compliance and reestablish patient in a regular routine for follow up care and management of Schizoaffective disorder which impacts patients overall fundamental compliance. Librado Dickey RNjig fitter communicated with [facility] program. [40] minutes spent on this encounter with >50% of the time in counseling and coordination of care. Thank you for this very appropriate consult.
--- NOTE | 2019-06-30 16:54 | CON ---
DATE OF CONSULTATION: 06/29/2019 HISTORY: The patient presented with possible stroke, unresponsive or barely responsive after being found in her car. In the emergency room, she had a CTA of her neck showing mild carotid disease, but incidentally was found to have a moderate pericardial effusion. She was somewhat hypotensive on initial examination; however, with some fluid resuscitation, this resolved. When I examined her in the emergency room, she was hypothermic and really poorly responsive, although was spontaneously breathing. Her heart rate was about 60. She had strong femoral pulses bilaterally. She had no significant cardiac murmur. Her heart sounds were good. Her neck examination did not reveal any jugular venous distention. She had clear lung parmar. Her chest x-ray showed bilateral pleural effusions and some cardiomegaly compared to a previous study. On review of her medical records, she did have a pericardial effusion within the last year or 2 that had been followed by Dr. Mcconnell. On admission, she had some mild renal insufficiency. She was also noted to have a markedly elevated TSH with barely detectable T3 and T4 levels. In regard to her pericardial effusion, I think watchful waiting and a followup echo in a month to see if it is resolving with reinstitution of her thyroid therapy is appropriate. At this time, she has no tamponade physiology and most of her symptoms can be explained based on her profound hypothyroidism due to medical noncompliance. Job ID: [id number]
[2019-06-30] MEDS: HumaLOG 300 UNITS/3 ML VIAL SC PRN ×2 (17:16→21:11)
[2019-06-30] MEDS ORDERED: Vancomycin HCl 750 MG in Sodium Chloride 0.9% 250 ML 250 ML IVPB SCH (18:00)
[2019-06-30] MEDS: cefTRIAXone\\ROCEPHIN 2 GM in Sodium Chloride 0.9% 100 ML IVPB SCH (20:58)
[2019-06-30] MEDS: Famotidine/PF 20 mg/2ml Vial SLOW IVP SCH (20:59)
[2019-06-30] MEDS ORDERED: cefTRIAXone\\ROCEPHIN 1 GM in Sodium Chloride 0.9% 100 ML IVPB SCH (21:00)
[2019-06-30] MEDS: Nicotine 14 MG PATCH TD SCH (21:13)
--- NOTE | 2019-07-01 05:26 | PDOC.FM ---
- Subjective Subjective: Pt states she is feeling much better this morning. She denies chest pain, SOB, nausea, or vomiting. - Objective MAR Reviewed: Yes Vital Signs & Weight: Vital Signs (12 hours) Temp Pulse Ox 07/01/19 04:21 97.2 F L 06/30/19 23:07 98.8 F 06/30/19 20:00 96 06/30/19 19:47 97.6 F Weight Admit Weight 74.928 kg Weight 74.928 kg Most Recent Monitor Data Heart Rate from ECG 64 NIBP 141/88 NIBP BP-Mean 105 Respiration from ECG 9 SpO2 95 I&O: 06/29/19 06/30/19 07/01/19 06:59 06:59 06:59 Intake Total 530 973 Output Total 300 475 Balance 230 498 Result Diagrams: 06/30/19 05:07 07/01/19 05:28 Phys Exam - Physical Examination Constitutional: NAD HEENT: PERRLA dry mm Respiratory: no wheezing, clear to auscultation bilateral Cardiovascular: RRR, no significant murmur Gastrointestinal: soft, non-tender, no distention, positive bowel sounds Musculoskeletal: pulses present, edema present (trace) Neurological: normal sensation, moves all 4 limbs Psychiatric: normal affect, A&O x 3 Skin: cap refill <2 seconds Dx/Plan (1) JESSICA (acute kidney injury) Code(s): N17.9 - ACUTE KIDNEY FAILURE, UNSPECIFIED Status: Acute (2) Adult myxedema Code(s): E03.9 - HYPOTHYROIDISM, UNSPECIFIED Status: Acute (3) Diabetes type 2, uncontrolled Code(s): E11.65 - TYPE 2 DIABETES MELLITUS WITH HYPERGLYCEMIA Status: Chronic (4) Hypothyroidism Code(s): E03.9 - HYPOTHYROIDISM, UNSPECIFIED Status: Chronic - Plan Plan: Guadalupe Green is a 44 yo female with a pmh of DM2, hypothyroidism, HLD, Schizoaffective who was admitted for AMS Hospital day 2 AMS, likely 2/2 myxedema coma -TSH 529 -Free T3 <1.0, Free T4 <0.4, pending repeat tomorrow -Continue 125 mcg levothyroxine -D/c steroids -Improved, will move to [facility], as there is still a risk for arrhythmias on high levels of thyroid hormone Rhabdomyolysis -CPK 1873 -Encouraged PO intake, recheck this morning UTI -Will continue rocephin (06/29), dc tonight JESSICA, likely 2/2 UTI, rhabdo, and decreased PO intake -Trend with BMP, encouraged po intake -Continuing gentle fluid hydration due to no change in renal function Hypothyroidism -As above Pericardial effusion -Echo shows small pericardial infusion -Dr. Shelby consulted, likely does not need any intervention HFpEF -Monitor heart function Transaminitis -Negative hepatitis panel -Ammonia 22 -Pending abdominal US DM2 -Hx of non-compliance, lantus at 14 this morning -Mild SSI -A1c 11.1 HLD Addendum - Attending - Attending Attestation Date/Time: 07/01/19 1030 I personally evaluated the patient and discussed the management with Dr. Dash. I agree with the History, Examination, Assessment and Plan documented above with any addition or exceptions noted below. Patient here with myxedema coma, now improved. Mentation more clear. Vitals stable. Echo showed small pericardial effusion and only diastolic dysfunction. Will increase IVF due to no improvement in renal function. Continue thyroid replacement and DM control. Needs placement and will work on that as she is not able to adequately care for herself at home.
[2019-07-01] MEDS: Levothyroxine Sodium 125 MCG TAB PO SCH (05:34)
[2019-07-01] MEDS: HumaLOG 300 UNITS/3 ML VIAL SC PRN ×2 (05:34→17:21)
[2019-07-01 06:18] LABS: Anion Gap 13 mmol/L (10-20); BUN (Urea Nitrogen) 19 mg/dL (7.0-18.7); CK (CPK) 1454 U/L (29-168); Calc. Creatinine Clearance 54 mL/min (70-130); Calcium 9.3 mg/dL (7.8-10.44); Carbon Dioxide 22 mmol/L (22-29); Chloride 105 mmol/L (98-107); Estimated GFR-MDRD 36; Glucose 316 mg/dL (70-105); Potassium 3.9 mmol/L (3.5-5.1); Sodium 136 mmol/L (136-145)
[2019-07-01] MEDS: Enoxaparin Sodium 40 MG/0.4 ML SYRINGE SC SCH (11:07)
[2019-07-01] MEDS: Sodium Chloride 0.9% 1,000 ML IV SCH ×2 (11:07→21:20)
[2019-07-01] MEDS: Insulin Glargine 14 UNITS in Pre-Filled Syringe 1 EACH SC SCH (11:08)
[2019-07-01] MEDS: Potassium Chloride 20 MEQ TAB PO SCH ×2 (11:08→16:15)
[2019-07-01 19:07] LABS: Free T4 (Free Thyroxine) 0.62 ng/dL (0.70-1.48)
[2019-07-01] MEDS: Nicotine 14 MG PATCH TD SCH (21:19)
[2019-07-01] MEDS: cefTRIAXone\\ROCEPHIN 2 GM in Sodium Chloride 0.9% 100 ML IVPB SCH (21:19)
[2019-07-01] MEDS: Famotidine/PF 20 mg/2ml Vial SLOW IVP SCH (21:19)
[2019-07-02 05:02] LABS: Anion Gap 15 mmol/L (10-20); BUN (Urea Nitrogen) 23 mg/dL (7.0-18.7); CK (CPK) 1040 U/L (29-168); Calc. Creatinine Clearance 67 mL/min (70-130); Calcium 8.9 mg/dL (7.8-10.44); Carbon Dioxide 21 mmol/L (22-29); Chloride 104 mmol/L (98-107); Estimated GFR-MDRD 46; Glucose 237 mg/dL (70-105); Potassium 3.9 mmol/L (3.5-5.1); Sodium 136 mmol/L (136-145)
[2019-07-02] MEDS: Levothyroxine Sodium 125 MCG TAB PO SCH (06:18)
--- NOTE | 2019-07-02 06:53 | PDOC.FM ---
- Subjective Subjective: NAEO. Patient resting in bed. Patient tearful on exam because [facility] She states she feels much better. She states she is going to take her medications as directed. She called our clinic and made a f /u appointment for next week . - Objective MAR Reviewed: Yes Vital Signs & Weight: Vital Signs (12 hours) Temp Pulse Resp BP BP Pulse Ox 07/02/19 03:20 96.9 F L 65 14 118/63 93 L 07/01/19 19:52 98.1 F 83 18 132/77 94 L Weight Admit Weight 74.928 kg Weight 74.928 kg Most Recent Monitor Data Heart Rate from ECG 68 NIBP 159/100 NIBP BP-Mean 119 Respiration from ECG 10 SpO2 96 I&O: 06/30/19 07/01/19 07/02/19 06:59 06:59 06:59 Intake Total 530 1453 1125 Output Total 300 1225 1320 Balance 230 228 -195 Result Diagrams: 06/30/19 05:07 07/02/19 04:15 Phys Exam - Physical Examination Constitutional: NAD HEENT: moist MMs, sclera anicteric Neck: supple, full ROM Respiratory: clear to auscultation bilateral Cardiovascular: RRR Gastrointestinal: soft, non-tender, no distention, positive bowel sounds Musculoskeletal: no edema Neurological: non-focal, moves all 4 limbs Psychiatric: normal affect, A&O x 3 Skin: no rash, normal turgor, cap refill <2 seconds Dx/Plan (1) JESSICA (acute kidney injury) Code(s): N17.9 - ACUTE KIDNEY FAILURE, UNSPECIFIED Status: Acute (2) Adult myxedema Code(s): E03.9 - HYPOTHYROIDISM, UNSPECIFIED Status: Acute (3) Bipolar 1 disorder Code(s): F31.9 - BIPOLAR DISORDER, UNSPECIFIED Status: Acute (4) Encephalopathy acute Code(s): G93.40 - ENCEPHALOPATHY, UNSPECIFIED Status: Acute (5) Hyperglycemia Code(s): R73.9 - HYPERGLYCEMIA, UNSPECIFIED Status: Acute (6) Diabetes type 2, uncontrolled Code(s): E11.65 - TYPE 2 DIABETES MELLITUS WITH HYPERGLYCEMIA Status: Chronic (7) Hyperlipidemia Code(s): E78.5 - HYPERLIPIDEMIA, UNSPECIFIED Status: Chronic (8) Hypothyroidism Code(s): E03.9 - HYPOTHYROIDISM, UNSPECIFIED Status: Chronic (9) Noncompliance with medication regimen Code(s): Z91.14 - PATIENT'S OTHER NONCOMPLIANCE WITH MEDICATION REGIMEN Status : Chronic - Plan Plan: Guadalupe Green is a 44 yo female with a pmh of DM2, hypothyroidism, HLD, Schizoaffective who was admitted for AMS AMS, likely 2/2 myxedema coma -TSH 529 -Free T3 <1.0, Free T4 <0.4, pending repeat -Continue 125 mcg levothyroxine -D/c steroids Rhabdomyolysis -CPK 1873 -> 1040 -Encouraged PO intake UTI -adequately treated with rocephin JESSICA, likely 2/2 UTI, rhabdo, and decreased PO intake -Trend with BMP, encouraged po intake -Continuing gentle fluid hydration due to no change in renal function Hypothyroidism -As above Pericardial effusion -Echo shows small pericardial infusion likely due to thyroid disease -Dr. Shelby consulted, likely does not need any intervention HFpEF -Monitor heart function Transaminitis -Negative hepatitis panel -Ammonia 22 DM2 -Hx of non-compliance, lantus at 14 this morning -Mild SSI -A1c 11.1 HLD -continue home med Code:FULL VTE: lovenox Dispo: discharge today Case discussed with Dr. Louis Addendum - Attending - Attending Attestation Date/Time: 07/02/19 1040 I personally evaluated the patient and discussed the management with Dr. Darnell. I agree with the History, Examination, Assessment and Plan documented above with any addition or exceptions noted below. Patient here with improved hypothyroidism verging on myxedema coma. She has improved mentation and vital signs. She is requesting discharge. We will discuss this with her family and ensure they feel she has adequate outpatient support. Extensive counselling on the need to take all her medications as prescribed and for good outpatient follow up. Though she is not medically optimized, there is nothing ongoing necessitating inpatient hospitalization and therefore stable for discharge if she demands.
[2019-07-02] MEDS: Enoxaparin Sodium 40 MG/0.4 ML SYRINGE SC SCH (08:57)
[2019-07-02] MEDS: Insulin Glargine 14 UNITS in Pre-Filled Syringe 1 EACH SC SCH (08:58)
[2019-07-02] MEDS: Potassium Chloride 20 MEQ TAB PO SCH (08:58)
[2019-07-02] MEDS: HumaLOG 300 UNITS/3 ML VIAL SC PRN ×2 (09:00→14:25)
[2019-07-02] MEDS ORDERED: Sodium Chloride 0.9% 1,000 ML IV SCH (09:02)
[2019-07-02 12:27] LABS: Thyroid Stimulating Hormone 391.8767 uIU/mL (0.35-4.94)
[2019-07-02 14:31] VITALS: BP 121/75; TEMP 97.6
--- NOTE | 2019-07-03 03:33 | DIS ---
DATE OF ADMISSION: 06/29/2019 DATE OF DISCHARGE: 07/02/2019 ADMITTING ATTENDING: Dr. Constanza Mathew. DISCHARGE ATTENDING: Dr. Oscar Louis. RESIDENT: Roberto Dash DO CONSULTS: 1. Dr. Marcial Shelby, Cardiovascular Surgery. 2. Dr. Lang Rodriguez, Pulmonology. PROCEDURES: 1. Echocardiogram on 06/30 showing ejection fraction estimated at 60% to 65%. Grade 1 to 3 diastolic dysfunction. Small pericardial effusion without tamponade. 2. Chest x-ray on 06/29 shows decompensated congestive heart failure. 3. Ultrasound of abdomen on 06/30 shows status post cholecystectomy, otherwise negative. 4. CT brain without shows no acute findings. 5. CT neck angio shows chronic incomplete pericardial effusion larger than on prior imaging, no central artery occlusion intracranially. No hemodynamically significant stenosis in the neck. PRIMARY DIAGNOSES: 1. Myxedema, secondary to hypothyroidism and noncompliance. 2. Pericardial effusion. 3. Altered mental status secondary to #1. 4. Rhabdomyolysis. 5. Urinary tract infection. 6. Acute kidney injury. 7. Transaminitis. SECONDARY DIAGNOSES: 1. Type 2 diabetes. 2. Hyperlipidemia. 3. Hypothyroidism. DISCHARGE MEDICATIONS: 1. Insulin glargine 14 units q.a.m. 2. Levothyroxine 125 mcg p.o. daily. DISCONTINUED MEDICATIONS: None. BRIEF HISTORY OF PRESENT ILLNESS/HOSPITAL COURSE: This is a 44-year-old female with past medical history of above as well as schizoaffective disorder, who presents to the ER with altered mental status. Last normal seen the prior day at midnight. Initially concerned for septic shock due to low temperature and altered mental status. Initial labs show TSH being 529 and T3-T4 being non-reportable. The patient was admitted to the hospital, diagnosed with lymphedema, and started on IV levothyroxine as well as rescue steroids. The patient's cortisol level was 9.06 ruling out adrenal insufficiency during this crisis period. The patient also had transaminitis and underwent an ultrasound of liver and gallbladder showing no significant pathology. The patient had rapid improvement following the administration of the levothyroxine, was transitioned to oral levothyroxine when capable. The patient was transported out of the [facility] where she continued to improve. surgery manager was consulted to discuss with her the treatment goals as well as plan of care outside of the hospital. The patient has a long history of noncompliance, which will likely bring her back and likely will be the cause of her demise. At the time of discharge, free T4 was 0.62 and free T3 was 1.11. TSH for this day is still pending, however, yesterday was down to 272. At this time, will continue to follow that trend. DISPOSITION: Stable. DISCHARGE INSTRUCTIONS: 1. Location: Home. 2. Diet: Heart healthy. 3. Activity: As tolerated. 4. Follow up with PCP, currently none, recommending physicians or otherwise. It would likely be advised the patient has repeat imaging for her pericardial effusion in 6 months to a year depending on her future presentations. Job ID: [id number]
--- NOTE | 2019-07-03 14:01 | EKG ---
Test Reason : Blood Pressure : / mmHG Vent. Rate : 069 BPM Atrial Rate : 069 BPM P-R Int : 176 ms QRS Dur : 108 ms QT Int : 452 ms P-R-T Axes : 050 -07 004 degrees QTc Int : 484 ms Normal sinus rhythm Low voltage QRS Incomplete right bundle branch block Borderline ECG Confirmed by MARITA LARA M.D. ([id number]), editorial project manager FELIPE LACKEY ([id number]) on 07/03/2019 2:00:41 PM Referred By: Confirmed By:MARITA LARA M.D.
--- NOTE | 2019-07-06 00:24 | PQF ---
[employer] Document Management Specialist [employer] GENEVIEVE Hernandez AGATHA BOWLING MD [id number] [facility]288 [id number] CLINICAL DOCUMENTATION CLARIFICATION FORM: POST DISCHARGE Addendum to original discharge summary date: ____ Late entry note date: __ DATE: 07/06/2019 ATTN: AGATHA BOWLING MD Please exercise your independent, professional judgment in responding to the clarification form. Clinical indicators are provided on the bottom of this form for your review Please check appropriate box(s): [ ] Encephalopathy: Etiology: [ ] Metabolic [ ] Toxic [ ] Unspecified [ ] Other (please specify) [ ] Other diagnosis [ ] Unable to determine In addition, please specify: Present on Admission (POA): [ ] Yes [ ] No [ ] Unable to determine For continuity of documentation, please document condition throughout progress notes and discharge summary. Thank You. CLINICAL INDICATORS - SIGNS / SYMPTOMS / LABS AMS - Documented in H&P on 06/29 by Laly Mustafa She was found hypothermic and placed warming blanket - Documented in H&P on by Laly Mustafa UTI and JESSICA - Documented in H&P on 06/29 by Laly Mustafa Acute Encephalopathy - Documetned in Family medicine PNs on 07/02 by Alyce Darnell MD Hyperglycemia- Documetned in Family medicine PNs on 07/02 by Alyce Darnell MD Hypothyroidism - Documetned in Family medicine PNs on 06/30 by Roberto Dash DO [employer] Myxedema 2/2 hypothyroudism and non compliance - Documented in DS on 07/02 by Roberto Dash DO Hx of schizoaffective disorder - Documented in H&P on 06/29 by Laly Mustafa TREATMENTS: CT brain given 2L IVF and single doses of vancomycin and ceftriaxone - Documented in H&P on 06/29 by Laly Mustafa [employer] Document Management Specialist [employer] (This form is maintained as a part of the permanent medical record) 2014 [employer]. All Rights Reserved Melissa [not provided] MTDD
== END 2019-07-02 16:20 | disposition home or self-care (01) | DRG 81 ==
LOC: ERS 18:04 → IMCU/EMU 19:32 → 2NO 07-01 09:05
PROVIDERS: ADMIT Student in an Organized Health Care Education/Training Program; ATTEND Student in an Organized Health Care Education/Training Program
DX: E03.5 Myxedema coma (principal); N17.9 Acute kidney failure, unspecified; M62.82 Rhabdomyolysis; N39.0 Urinary tract infection, site not specified; I31.3 Pericardial effusion (noninflammatory); G93.40 Encephalopathy, unspecified; I50.32 Chronic diastolic (congestive) heart failure; E03.9 Hypothyroidism, unspecified; E11.9 Type 2 diabetes mellitus without complications; F25.9 Schizoaffective disorder, unspecified; E78.5 Hyperlipidemia, unspecified; T68.XXXA Hypothermia, initial encounter; F41.9 Anxiety disorder, unspecified; I11.0 Hypertensive heart disease with heart failure; I50.9 Heart failure, unspecified; F17.210 Nicotine dependence, cigarettes, uncomplicated; H91.90 Unspecified hearing loss, unspecified ear; F31.9 Bipolar disorder, unspecified; Z51.5 Encounter for palliative care; Z88.6 Allergy status to analgesic agent; Z88.0 Allergy status to penicillin; Z88.2 Allergy status to sulfonamides; Z79.4 Long term (current) use of insulin; Z90.49 Acquired absence of other specified parts of digestive tract; Z79.84 Long term (current) use of oral hypoglycemic drugs; Z91.14 Patient's other noncompliance with medication regimen
CPT/HCPCS: 36415; 36416; 51702; 70450; 70496; 70498; 71045; 76700; 80048; 80053; 80074; 80306; 80307; 81003; 81015; 82024; 82140; 82533; 82550; 83036; 83605; 83690; 83880; 84145; 84439; 84443; 84481; 84484; 85025; 85610; 85730; 87040; 87077; 87086; 87186; 93005; 93306; 96361; 96365; 96375; 99292; J0696; J1650; J1720; J1815; J3370; J3490; Q9966; S0028

== ENCOUNTER 2019-07-07 20:14 | Inpatient (IN) | payer OTHER ==
[2019-07-07] MEDS ORDERED: Albuterol Sulfate 2.5 mg/3 ml Neb ONE (20:22)
[2019-07-07] MEDS ORDERED: Dexamethasone 10 MG/ML VIAL ONE (20:24)
[2019-07-07 20:34] LABS: Actual Bicarbonate (HCO3a) 24.4 mEq/L (22-28); Analyzer IN Cardio ER; Base Excess (BEa) 0.6 mEq/L (-2.0 to +3.0); Carboxyhemoglobin (COHb) 2.1 gm% (0.0-3.0); Potassium - ABG Lab 3.97 mmol/L (3.70-5.30); pH, Arterial 7.45 (7.35-7.45)
--- NOTE | 2019-07-07 20:44 | RAD ---
PORTABLE CHEST: 07/07/19 HISTORY: Dyspnea. COMPARISON: 06/29/19. FINDINGS/IMPRESSION: Cardiomegaly. Mild vascular engorgement. Perihilar haziness suggesting mild perihilar edema or infiltrate. A calcified nodule in the peripheral right lung again noted. POS: AGW
[2019-07-07 20:46] LABS: Puncture Site LRA
[2019-07-07 20:59] LABS: #Eosinphils 0.1 thou/uL (0.0-0.7); #Lymphocytes 0.7 thou/uL (1.20-3.40); #Monocytes 0.4 thou/uL (0.11-0.59); #Neutrophils 3.5 thou/uL (1.40-6.50); %Basophils 0.3 % (0.0-1.0); %Eosinophils 1.4 % (0.0-10.0); %Lymphocytes 15.9 % (21.0-51.0); %Monocytes 8.4 % (0.0-10.0); Hemoglobin 10.3 g/dL (12.0-16.0); Mean Corpuscular Hemoglobin 31.5 pg (27.0-31.0); Mean Corpuscular Volume 95.3 fL (78.0-98.0); Mean Platelet Volume 8.9 fL (7.4-10.4); Platelet Count 108 thou/uL (130-400); RBC Distribution Width 13.6 % (11.5-14.5); Red Blood Cell (RBC) Count 3.26 mill/uL (4.20-5.40); White Blood Cell (WBC) Count 4.7 thou/uL (4.8-10.8)
[2019-07-07] MEDS ORDERED: Norepinephrine 4 MG/4 ML VIAL ONE (21:32)
[2019-07-07 21:54] LABS: ALT (SGPT) 211 U/L (8-55); AST (SGOT) 94 U/L (5-34); Albumin 3.6 g/dL (3.5-5.0); Alkaline Phosphatase 184 U/L (40-110); Anion Gap 15 mmol/L (10-20); BUN (Urea Nitrogen) 31 mg/dL (7.0-18.7); Bilirubin, Total 0.4 mg/dL (0.2-1.2); CK (CPK) 449 U/L (29-168); Calc. Creatinine Clearance 0 mL/min (70-130); Calcium 8.4 mg/dL (7.8-10.44); Carbon Dioxide 23 mmol/L (22-29); Chloride 104 mmol/L (98-107); Estimated GFR-MDRD 50; Globulin 2.6 g/dL (2.4-3.5); Glucose 170 mg/dL (70-105); Lipase 11 U/L (8-78); Potassium 3.7 mmol/L (3.5-5.1); Protein, Total 6.2 g/dL (6.0-8.3); Sodium 138 mmol/L (136-145)
[2019-07-07 22:04] LABS: Acetaminophen Less than 6.0 mcg/mL (10.0-30.0); Alcohol Less than 10 mg/dL (Less than 10); Salicylate Less than 8.0 mg/dL (15.0-30.0)
[2019-07-07 22:20] LABS: Amphetamine Not Detected (NotDetected); Barbiturates Screen Not Detected (NotDetected); Benzodiazepine Screen Not Detected (NotDetected); Cocaine Metabolite Screen Not Detected (NotDetected); Medtox Control Line Valid? VALID (VALID); Medtox Reader # READER 4; Methadone Not Detected (NotDetected); Methamphetamine Not Detected (NotDetected); Opiate Screen Not Detected (NotDetected); Oxycodone Screen Not Detected (NotDetected); Phencyclidine (PCP) Not Detected (NotDetected); THC/Cannabinoid Screen Not Detected (NotDetected); Tricyclic Screen Not Detected (NotDetected)
[2019-07-07 22:22] LABS: Bilirubin Negative (Negative); Blood, Urine Negative (Negative); Clarity Extra Turbid (Clear); Glucose, Urine (Dipstick) Normal (Negative); Leukocyte Negative Leu/uL (Negative); Nitrite Negative (Negative); Protein, Urine (Dipstick) 100 mg/dL (Neg-Trace); RBC/HPF 0-3 HPF (0-3); Yeast-Budding 2+ HPF (None Seen)
--- NOTE | 2019-07-07 22:25 | CT ---
CT HEAD WITHOUT IV CONTRAST COMPARISON: 06/29/2019 HISTORY: Altered mental status TECHNIQUE: Axial CT imaging at 5 mm intervals from vertex through skull base without contrast FINDINGS: There is no evidence of an acute infarction, hemorrhage, mass effect, or midline shift. The ventricul ar system is normal in size, shape, and position. There is mucosal thickening in the bilateral ethmoidal air cells as well as a limited visualized left maxillary antrum and sphenoid sinuses. Mastoid effusions are also seen bilaterally Osseous structures appear intact. IMPRESSION: 1. No acute intracranial abnormality demonstrated. 2. Sinus disease and mastoid effusions.
[2019-07-07 22:28] LABS: Bacteria/HPF 1+ HPF (None Seen)
--- NOTE | 2019-07-07 22:50 | CT ---
CT ANGIOGRAM THORAX WITH IV CONTRAST AND 3-D RECONSTRUCTIONS CLINICAL INDICATION: Patient found down in shower. Patient has had a cough for 3 days COMPARISON: None FINDINGS: Pulmonary arteries: No filling defects are seen in the pulmonary arteries to suggest a pulmonary embo yobany. Aorta: Vascular calcifications are seen in the aortic arch and at the origin of the great vessels. Ho wever, the thoracic aorta is normal in caliber without evidence of an aortic dissection. Lungs: Multiple patchy parenchymal densities are seen within the right upper lobe with small focal ar ea of consolidation in the region of the lingula. Findings are worrisome for infectious process. Follow-up to resolution is recommended. A calcified granuloma is seen in the right upper lobe. Volume loss is present at each lung base. Mediastinum: The heart is enlarged. There is a moderate-sized pericardial effusion present. A right s ubclavian central venous catheter is noted in place with the tip at the caval atrial junction. There is gas and tiny amount of fluid in the esophagus which may related to gastroesophageal reflux. Osseous structures: Mild degenerative changes are seen in the spine. Chest wall: No abnormality visualized. Upper abdomen: Postcholecystectomy changes are seen. The remainder of the limited visualized upper ab domen has a grossly normal appearance for phase of imaging. IMPRESSION: 1. No CT evidence of a pulmonary embolus. 2. Cardiomegaly with moderate pericardial effusion. 3. Patchy parenchymal opacities and small focal area of consolidation in the right upper lobe and in the lingula worrisome for infectious process. Atypical infectious process/pneumonia is a possibility. Follow-up to resolution is recommended.
--- NOTE | 2019-07-07 23:18 | RAD ---
PORTABLE AP CHEST X-RAY: 07/07/19 HISTORY: Central line placement. COMPARISON: 07/07/19. FINDINGS: There has been interval placement of a right internal jugular vein central venous catheter with the t ip overlying the region of the right atrium. No pneumothorax or pleural effusion is identified. There are patchy parenchymal density seen within the right mid lung zone as well as in the left mid lung zone and left lung base which could be related to multifocal infectious process/pneumonia. There is s light blunting of the left lateral costophrenic angle, but this is probably related to volume loss at the left lung base. The cardiac silhouette is enlarged. Pulmonary vasculature is within normal limit s. No other interval change. IMPRESSION: 1. Interval placement of a right internal jugular vein central venous catheter with tip overlyin g the right atrium. No pneumothorax is seen. 2. Enlargement of the cardiac silhouette. 3. Multifocal linear and patchy densities in the mid lung zones bilaterally as well as at the le ft lung base which could be related to multifocal pneumonia/infectious process. Follow-up to resoluti on is recommended. POS: OFF
[2019-07-08 00:02] VITALS: BMI 35.6
[2019-07-08] MEDS ORDERED: Norepinephrine 8 MG/250 ML BAG IVPB PRN (00:11)
--- NOTE | 2019-07-08 00:11 | PDOC.FPRHP ---
- History of Present Illness Chief Complaint: Syncope, AMS History of Present Illness: 44yo female presents to the ED following a syncopal episode at home. Pt was discharged 5 days ago following an admission for myxedema coma. Pt had texted her sister earlier in the day that she was having glucose levels in the 20's. Upon arrival pt was altered, hypoxic, and hypotensive. She was started on bipap , given fluids, had an IJ placed and was started on levo. At the time of eval pt was not responsive, she would open her eyes to stimuli, not follow commands. Her vitals were stable on 8 of levo. CTA was negative for PE but showed a likely lingual lobe pna and moderate pericardial effusion that was stable since it was noted on previous admission. TSH in 200s and half of what her level was on time of discharge. Pt had diffuse puffy edema and oral swelling. Pt's sister stated that the pt is not compliant with her medications. - Allergies/Adverse Reactions Allergies Allergy/AdvReac Type Severity Reaction Status Date / Time amoxicillin trihydrate Allergy Severe Anaphylaxis Verified 06/29/19 23:44 [From Trimox] doxycycline Allergy Severe Anaphylaxis Verified 06/29/19 23:44 Penicillins Allergy Severe Anaphylaxis Verified 06/29/19 23:44 sulfamethoxazole Allergy Severe Anaphylaxis Verified 06/29/19 23:44 [From Bactrim] trimethoprim [From Bactrim] Allergy Severe Anaphylaxis Verified 06/29/19 23:44 - Home Medications Medication Instructions Recorded Confirmed Type Insulin Detemir 100 UNITS/ML 50 unit SQ HS 06/29/19 06/29/19 History [Levemir] Insulin Detemir 100 UNITS/ML 50 units SC QAM 06/29/19 06/29/19 History [Levemir] Insulin Glargine [Lantus Vial] 14 units SC QAM vial 07/02/19 Rx Levothyroxine Sodium [Synthroid] 125 mcg PO 0600 #30 tab 07/02/19 Rx - History PMHx: In past medical charts pt has hx of Schizoaffective disorder, Anxiety, Insomnia, Diabetes mellitus type II, Hypothyroidism, CHF with preserved EF borderline PSHx: Per past medical charts pt has hx of Hysterectomy, Cholecystectomy, Hx of bianca gangrene s/p debridement FHx: Non-contributory Social: Patient has history in past charts of 1/2 PPD smoking history for the past 30 years. Has past hx in past medical charts of occasional drinking, Denies any illicit drug use. - Review of Systems ROS unobtainable: due to mental status - Vital signs BP: 124/85, Pulse: 80, Resp: 20, Temp: 98.8 (Oral), Pain: 0, O2 sat: 100 on Bipap - Physical Exam -Constitutional: Not alert, opens eyes to stimuli HEENT: PERRLA, no scleral icterus -HEENT: Extremely poor dentition Neck: no JVD Heart: RRR -Heart: Harsh sounding beats -Lungs: Harsh rales diffusely, pt on bipap currently Abdomen: soft, non-tender Musculoskeletal: normal structure -Neurological: Unable to assess, not following commands -Skin: Scaling of skin to lower extremities, pale Puffy swelling to extremities, non pitting Heme/Lymphatic: no unusual bruising or bleeding, no purpura -Psychiatric: Unable to asses FMR H&P: Results - Labs Result Diagrams: 07/08/19 05:12 07/08/19 03:12 Lab results: WBC 4.7 thou/uL (4.8-10.8) L 07/07/19 20:43 Hgb 10.3 g/dL (12.0-16.0) L 07/07/19 20:43 Hct 31.1 % (36.0-47.0) L 07/07/19 20:43 MCV 95.3 fL (78.0-98.0) 07/07/19 20:43 Plt Count 108 thou/uL (130-400) L 07/07/19 20:43 Neutrophils % 74.0 % (42.0-75.0) 07/07/19 20:43 ABG pH 7.45 (7.35-7.45) 07/07/19 20:22 ABG pCO2 36.0 mmHg (35.0-45.0) 07/07/19 20:22 ABG pO2 137.0 mmHg (80.0-100.0) H 07/07/19 20:22 Sodium 138 mmol/L (136-145) 07/07/19 21:28 Potassium 3.7 mmol/L (3.5-5.1) 07/07/19 21:28 Chloride 104 mmol/L (98-107) 07/07/19 21:28 Carbon Dioxide 23 mmol/L (22-29) 07/07/19 21:28 BUN 31 mg/dL (7.0-18.7) H 07/07/19 21:28 Creatinine 1.18 mg/dL (0.6-1.1) H 07/07/19 21:28 Glucose 170 mg/dL (70-105) H 07/07/19 21:28 Lactic Acid 1.1 mmol/L (0.5-2.2) 07/07/19 21:28 Calcium 8.4 mg/dL (7.8-10.44) 07/07/19 21:28 Total Bilirubin 0.4 mg/dL (0.2-1.2) 07/07/19 21:28 AST 94 U/L (5-34) H 07/07/19 21:28 ALT 211 U/L (8-55) H 07/07/19 21:28 Alkaline Phosphatase 184 U/L (40-110) H 07/07/19 21:28 Ammonia 20 umol/L (18-72) 07/07/19 22:46 Creatine Kinase 449 U/L (29-168) H 07/07/19 21:28 B-Natriuretic Peptide 13.0 pg/mL (0-100) 07/07/19 20:43 Serum Total Protein 6.2 g/dL (6.0-8.3) 07/07/19 21:28 Albumin 3.6 g/dL (3.5-5.0) 07/07/19 21:28 Lipase 11 U/L (8-78) 07/07/19 21:28 Urine Ketones Negative mg/dL (Negative) 07/07/19 21:49 Urine Blood Negative (Negative) 07/07/19 21:49 Urine Nitrite Negative (Negative) 07/07/19 21:49 Ur Leukocyte Esterase Negative Se/uL (Negative) 07/07/19 21:49 Urine RBC 0-3 HPF (0-3) 07/07/19 21:49 Urine WBC 4-6 HPF (0-3) A 07/07/19 21:49 Ur Squamous Epith Cells 7-10 HPF (0-3) A 07/07/19 21:49 Urine Bacteria 1+ HPF (None Seen) 07/07/19 21:49 - Radiology Interpretation Chest x-ray Status: report reviewed by me (Cardiomegaly Perihilar haziness suggesting mild perihilar edema or infiltrate Calcified nodule in the peripheral right lung - noted on previous exams) CT scan - head Status: report reviewed by me (no acute intracranial abnormality sinus disease and mastoid effusions) CT scan - chest Status: report reviewed by me (No evidence of PE Cardiomegaly with moderate pericardial effusion patchy parenchymal opacities and small focal area of consolidation in the RUL and in the lingula worrisome for infectious process) FMR H&P: A/P - Problem List (1) Pericardial effusion Current Visit: Yes Status: Acute Code(s): I31.3 - PERICARDIAL EFFUSION ( NONINFLAMMATORY) (2) Adult myxedema Current Visit: No Status: Acute Code(s): E03.9 - HYPOTHYROIDISM, UNSPECIFIED (3) Bipolar 1 disorder Current Visit: No Status: Acute Code(s): F31.9 - BIPOLAR DISORDER, UNSPECIFIED (4) Encephalopathy acute Current Visit: No Status: Acute Code(s): G93.40 - ENCEPHALOPATHY, UNSPECIFIED (5) Schizophrenia Current Visit: No Status: Acute Code(s): F20.9 - SCHIZOPHRENIA, UNSPECIFIED (6) Hyperlipidemia Current Visit: No Status: Chronic Code(s): E78.5 - HYPERLIPIDEMIA, UNSPECIFIED (7) Hypothyroidism Current Visit: No Status: Chronic Code(s): E03.9 - HYPOTHYROIDISM, UNSPECIFIED (8) Noncompliance with medication regimen Current Visit: No Status: Chronic Code(s): Z91.14 - PATIENT'S OTHER NONCOMPLIANCE WITH MEDICATION REGIMEN (9) Pneumonia Current Visit: Yes Status: Acute Code(s): J18.9 - PNEUMONIA, UNSPECIFIED ORGANISM - Plan Altered Mental Status - Syncope -Discharged following myxedema coma 5 days ago -Likely Myxedema Coma vs Hypoglycemia - Poor compliance per family -Physical exam remarkable for diffuse non-pitting edema -Reported sugars as low as 20's at home -CTA: Pericardial Effusion -TSH: 265 (improved from last admission) -T3/T4 pending Hypothyroidism -Medication non-compliance likely -Myxedema Coma likely - as above -Restart home medication regimen Pericardial Effusion -CT chest - Stable from previous exam during last admission -Stat ECHO pending. Pneumonia -CTA findings suggestive of lingual lobe pna -Levaquin and vanc given in ED, continued -Procal pending Transaminintis -LFT elevated from prior values from previous visits. -US last admission negative for acute findings -likely component of shock liver DM2 -reported instances of severe hypoglycemia -Restart home medication regimen -Mild Sliding Scale Insulin HLD -continue home meds Code: Full Diet: NPO w/ sips DVT PPx: SCDs and Lovenox 40 mg SC Dispo: Patient admitted to [facility]. History and physical exam were difficult to obtain due to patient's documented hearing loss and non-verbal status. Await lab results and correlate clinically. Expected LOS > 48H FMR H&P: Upper Level - Plan Date/Time: 07/08/19 0010 IFredi MD, have evaluated this patient and agree with findings/plan as outlined by epidemiology internship resident. Pertinent changes/additions are listed here. Guadalupe Green is a 44 year old F with a PMH of CHF, Asthma, Hypothyroidism, Pericardial Effusion, hx of CVA, DM2 who was brought to the ED by EMS after family found pt down in the shower. EMS stated patient was unresponsive to verbal and painful stimuli initially. According to family, patient had been complaining of dyspnea and cough for the last 3 days, denies any fever. Pt was discharged from the hospital about a week ago after a three day admission for myxedema coma. When the EMS arrived to [facility] house, her sats were 86% on RA, BP was 103/69. Pt's sister states that patient did have a low blood sugar earlier that day, but blood glucose was in the 160s for EMS. When patient arrived to ED , she was hypotensive in the 70-80s systolic. She was 89% on 2 L in ED and was started on BiPAP. She was given 1 L NS and was not responsive so ERMD placed right IJ CVC and started levophed. Patient was given empiric antibiotics, levaquin, vancomycin as well. She was also given decadron and duonebs. ABG showed pH 7.45, pO2 137, pCO2 36. Ct brain was negative for acute findings, UDS and serum drug screens were negative, Lactic acid was 1.1, initial trop was negative, Hg 10.3, Cr 1.18. D-dimer was 0.39. CXR showed perihilar haziness and cardiomegaly. CTA chest showed no evidence of PE, moderate pericardial effusion and patchy parenchymal opacities. When are admitting patient to IMCU for acute hypoxic respiratory failure. Continue Bipap and wean as tolerated. Patient's levophed already being titrated down. Checking Procal and continuing empiric abx due to findings on CTA and CXR, concerning for pneumonia. Possible that this is 2/2 pneumonia vs recurrence of myxedema coma due to medication nonadherence. Checking TSH, Free T4 and T3 and cortisol. Will give solucortef and patient's daily dose of levothroxine until lab results return. Blood and urine cultures drawn. Will wean levophed as tolerated and continue mIVFs. Anticipate hospital stay > 48 hours. Please see epidemiology internship note above for full H&P , which I have reviewed and agree with. Addendum - Attending - Attending Attestation Date/Time: 07/08/19 0022 I personally evaluated the patient and discussed the management with Dr. Shaw on 07/07/2019 I agree with the History, Examination, Assessment and Plan documented above with any addition or exceptions noted below - 44 year old F with a PMH of CHF, Asthma, Hypothyroidism, Pericardial Effusion, hx of CVA, DM2 who was brought to the ED by EMS after family found pt down in the shower. EMS stated patient was unresponsive to verbal and painful stimuli initially. According to family, patient had been complaining of dyspnea and cough for the last 3 days, denies any fever. Pt was discharged from the hospital about a week ago after a three day admission for myxedema coma. When the EMS arrived to [facility] house, her sats were 86% on RA, BP was 103/69. Pt's sister states that patient did have a low blood sugar earlier that day, but blood glucose was in the 160s for EMS. When patient arrived to ED, she was hypotensive in the 70-80s systolic. She was 89% on 2 L in ED and was started on BiPAP. She was given 1 L NS and was not responsive so ERMD placed right IJ CVC and started levophed. Afebrile BP 107/76 P77 RR14 Exam repeated by me and agree with resident's findings. Labs: WBC= 4.7, H/H=10.3/31.4, Bod=478, Wt=728, K=3.7, BUN/Cr=31/1.18, Pnxw=749, AST/ALT=94 /211, TVO=708, YC=558, UDS- negative, Ammonia=20. A/P: 1) Altered MS/Syncope- uncertain etiology; CT brain negative; continue close monitoring. 2) Hypotension - uncertain etiology; recent hospitalization for myxedema coma; will check cortisol for secondary adrenal insufficiency and start hydrocortisone pending those results. Wean levophed as tolerated. 3) Pneumonia- continue abx. 4) DM- monitor BG, %0 Hypothyroidism- continue levothyroxine.
[2019-07-08] MEDS ORDERED: Ondansetron ODT 4 MG TAB SL PRN (00:14)
[2019-07-08] MEDS ORDERED: Ondansetron PF 4 MG/2 ML Vial IVP PRN (00:14)
[2019-07-08] MEDS ORDERED: Acetaminophen 325 MG TAB PO PRN ×2 (00:14→00:34)
[2019-07-08] MEDS ORDERED: Lactated Ringer's 1,000 ML IV SCH ×3 (00:15→08:27)
[2019-07-08] MEDS ORDERED: Vancomycin HCl 1 GM in Premix Bag 1 BAG IVPB SCH (00:15)
[2019-07-08 00:54] LABS: Troponin I Less than 0.010 ng/mL (< 0.028)
[2019-07-08] MEDS ORDERED: Vancomycin HCl 1.5 GM in Sodium Chloride 0.9% 500 ML IVPB SCH (01:00)
[2019-07-08] MEDS ORDERED: Hydrocortisone Sod Succ/PF 100 MG in Sodium Chloride 0.9% 50 ML IVPB SCH (01:00)
[2019-07-08] MEDS: Hydrocortisone Sod Succ/PF 100 mg/2 ml Vial IVP SCH ×3 (01:31→17:54)
[2019-07-08] MEDS ORDERED: Chloraseptic Spray 180 ml Bottle PO PRN (01:40)
[2019-07-08] MEDS ORDERED: Levothyroxine Sodium 125 MCG TAB PO SCH ×2 (02:30→06:00)
[2019-07-08 03:47] LABS: Troponin I Less than 0.010 ng/mL (< 0.028)
[2019-07-08 05:36] LABS: #Lymphocytes 0.4 thou/uL (1.20-3.40); #Monocytes 0.1 thou/uL (0.11-0.59); #Neutrophils 4.3 thou/uL (1.40-6.50); %Eosinophils 0.1 % (0.0-10.0); %Lymphocytes 8.3 % (21.0-51.0); %Monocytes 1.9 % (0.0-10.0); %Neutrophils 89.7 % (42.0-75.0); Hemoglobin 10.3 g/dL (12.0-16.0); Mean Corpuscular HGB CONC 33.8 g/dL (32.0-36.0); Mean Corpuscular Hemoglobin 32.3 pg (27.0-31.0); Mean Corpuscular Volume 95.6 fL (78.0-98.0); Mean Platelet Volume 8.8 fL (7.4-10.4); Platelet Count 113 thou/uL (130-400); RBC Distribution Width 13.5 % (11.5-14.5); White Blood Cell (WBC) Count 4.8 thou/uL (4.8-10.8)
[2019-07-08 06:33] LABS: Anion Gap 15 mmol/L (10-20); BUN (Urea Nitrogen) 30 mg/dL (7.0-18.7); Calc. Creatinine Clearance 74 mL/min (70-130); Calcium 8.7 mg/dL (7.8-10.44); Carbon Dioxide 22 mmol/L (22-29); Chloride 104 mmol/L (98-107); Estimated GFR-MDRD 47; Glucose 252 mg/dL (70-105); Potassium 3.9 mmol/L (3.5-5.1); Sodium 137 mmol/L (136-145)
--- NOTE | 2019-07-08 06:45 | PDOC.FM ---
- Subjective Subjective: Reports feeling better this AM. No longer on levophed since around 2300 last night. Denies SOB on NC. Reports she had been taking her levothyroxine as directed after discharge. Lives at home. - Objective MAR Reviewed: Yes Vital Signs & Weight: Vital Signs (12 hours) Temp Pulse Ox 07/08/19 04:00 97.7 F 96 07/08/19 01:25 98 07/08/19 00:00 98.5 F 07/07/19 23:45 100 Weight Admit Weight 80 kg Weight 80 kg Most Recent Monitor Data Heart Rate from ECG 70 NIBP 120/81 NIBP BP-Mean 94 Respiration from ECG 13 SpO2 94 I&O: 07/06/19 07/07/19 07/08/19 06:59 06:59 06:59 Intake Total 923.8 Output Total 385 Balance 538.8 Result Diagrams: 07/10/19 04:33 07/11/19 04:43 Phys Exam - Physical Examination Constitutional: NAD HEENT: moist MMs Neck: supple Respiratory: no wheezing, clear to auscultation bilateral Cardiovascular: RRR, no significant murmur Gastrointestinal: soft, non-tender, positive bowel sounds Musculoskeletal: pulses present Neurological: moves all 4 limbs Psychiatric: normal affect, A&O x 3 Skin: no rash Dx/Plan - Plan Plan: Acute Hypoxic Resp failure 2/2 likely pneumonia vs myxedema coma - Discharged following myxedema coma 6 days ago - CTA suggestive of lingual lobe pna, pericardial effusion, no PE - Continue Levaquin and vanc - Procal 0.19 - TSH: 265 (improved from last admission), T4 0.71 - Off Bipap since last night will transfer out of ICU to [facility]. D/c gardner cath. Consider removing cental line Hypothyroidism - Non-compliant with meds - Myxedema Coma likely - as above - TSH 265 - Continue home meds Pericardial Effusion - CT chest - Stable from previous exam during last admission - Echo pending read Transaminintis - LFT elevated from prior values from previous visits. - US last admission negative for acute findings. Hep panel negative - likely component of shock liver DM2 - Reported sugars as low as 20's at home - Restart home medication regimen - Mild SSI, hypoglycemic protocol HLD - Continue home meds Code Status: FULL DVT ppx: Lovenox Addendum - Attending - Attending Attestation Date/Time: 07/08/19 0954 I personally evaluated the patient and discussed the management with Dr. Hall I agree with the History, Examination, Assessment and Plan documented above with any addition or exceptions noted below. HD#1 Patient awake. Off pressors. No acute events overnight. Received 1 dose IV LT4. Continue PO. Continue tamiflu for flu. CT surg consulted for management of pericardial effusion. s/p tamponade. Transfer to tele. Continue to monitor closely. Fareed
[2019-07-08] MEDS ORDERED: Dextrose 50% Abboject 50 ML SYRINGE SLOW IVP PRN (08:27)
[2019-07-08] MEDS ORDERED: Dextrose 5% in Water 1,000 ML IV PRN (08:27)
[2019-07-08] MEDS ORDERED: Enoxaparin Sodium 40 MG/0.4 ML SYRINGE SC SCH (09:00)
[2019-07-08] MEDS ORDERED: FLU VACC QS2019-20(6MOS UP)/PF 60 MCG/0.5 ML SYRINGE IM ONE (09:00)
[2019-07-08] MEDS ORDERED: Levothyroxine 100 MCG SDV IVP SCH (11:15)
[2019-07-08] MEDS ORDERED: HumaLOG 300 UNITS/3 ML VIAL SC SCH (13:00)
[2019-07-08] MEDS ORDERED: Insulin Glargine 10 UNITS in Pre-Filled Syringe 1 EACH SC SCH (13:00)
--- NOTE | 2019-07-08 13:21 | CON ---
DATE OF CONSULTATION: HISTORY OF PRESENT ILLNESS: Guadalupe Green is a morbidly obese female 44 years old, who was brought in again after being found down at home. She had multiple issues during the last admission. She was found to be severely hypothyroidism with a TSH of greater than 500. It is unclear whether she is taking her medicine. She was discharged home on Synthroid 125 mcg. TSH is still 200. This morning, she says she is feeling better. She is less short of breath and less cough. Still appears to be somewhat encephalopathic. PAST MEDICAL HISTORY: Uncontrolled diabetes, diastolic dysfunction, pericardial effusion, carotid disease, bipolar, depression, schizophrenia, hypothyroidism. PREVIOUS SURGERIES: Include otherwise gallbladder; hysterectomy; ear surgery, apparently deaf. ALLERGIES: MULTIPLE; PENICILLIN, SULFA, DOXYCYCLINE. HOME MEDICATIONS: Include: 1. Synthroid 125. 2. Insulin 15 units twice a day. She is now on: 1. Vancomycin. 2. Levophed. 3. Levaquin. 4. Steroids. REVIEW OF SYSTEMS: Difficult to obtain. PHYSICAL EXAMINATION: VITAL SIGNS: Saturations are 97%, temperature 98, blood pressure 115/79, respiratory rate 18. CHEST: Decreased breath sounds. Bilateral rhonchi. CARDIAC: Normal S1 and S2. No gallops. ABDOMEN: No mass. IMAGING STUDIES: X-ray shows bilateral infiltrates, cardiomegaly, pleural effusion. LABORATORY FINDINGS: White count 4000, H and H of 10 and 30, platelet count decreased 113. Creatinine 1.24. Cortisol is 14.3. IMPRESSION: Recurrent encephalopathy, severely hypothyroid, morbid obesity, depression, bipolar, diabetes, apparently history of cervical cancer. PLAN: May want to consider increasing the Synthroid to 150 mcg. I agree with steroids. Continue neb treatment, broad-spectrum antibiotics, deescalate when cultures are back. PT, supportive care, nutrition. Consultation note, 70 minutes, 50% in direct patient care. Job ID: [id number]
[2019-07-08] MEDS: HumaLOG 300 UNITS/3 ML VIAL SC PRN ×3 (13:42→23:01)
--- NOTE | 2019-07-08 14:36 | PDOC.PALCO ---
Palliative Care Consult - Consult Details Requesting Physician: Dr Gipson Reason for Consult: advance directives assistance, family support Family Members Present: Belen Mahajan RNmechanical piping designer met with sisters/medina Case at bedside - Pertinent HPI 44 year old female who presented to the emergency room after she experienced a syncopal episode at home. Patient had communicated to her sister that she was having low blood glucose levels (in the 20's) in the emergency room patient was identified to have a TSH of over 500. Admitted to CCU for further evaluation. Ms Green is familiar to Palliative Care Team, prior to discharge DISRP program with [facility]ON[facility] was initiated for home visits and assistance with compliance with medications, however patient was only home 5 days and home visit was scheduled for one week post discharge. Patient continues to be non compliant with medications. - Pertinent PMH Diabetes, diastolic dysfunction, pericardial effusion, carotid disease, bipolar , depression, schizophrenia, hypothyroid - Social History Smoking Status: Smokes 0-10 cigs daily Smoking: less than 1 pack/day Alcohol Use: occasional Drug Use History: marijuana Living Situation: independent - Medications MAR Reviewed: Yes - Allergies Allergies/Adverse Reactions: Allergies Allergy/AdvReac Type Severity Reaction Status Date / Time amoxicillin trihydrate Allergy Severe Rash Verified 07/08/19 14:42 [From Trimox] doxycycline Allergy Severe Anaphylaxis Verified 06/29/19 23:44 peach Allergy Severe Verified 07/08/19 14:41 Penicillins Allergy Severe Anaphylaxis Verified 06/29/19 23:44 strawberry Allergy Severe Verified 07/08/19 14:41 sulfamethoxazole Allergy Severe Anaphylaxis Verified 06/29/19 23:44 [From Bactrim] trimethoprim [From Bactrim] Allergy Severe Anaphylaxis Verified 06/29/19 23:44 orange juice Allergy Verified 07/08/19 14:42 - Subjective Lethargic/ ROS: 10 point review "i feel tired" otherwise negative. - Objective Vital Signs: Vital Signs - Most Recent Temp Pulse Resp BP Pulse Ox 98.1 F 76 12 94 L 07/08/19 08:00 07/08/19 14:20 07/08/19 14:20 07/08/19 08:00 Palliative Performance Scale: 30 - Advance Directives Medical Power of Senior Water Resources Engineer: Jacqeu patient sister - Physical Exam Constitutional: confusion HEENT: sclera anicteric Respiratory: unlabored breathing Cardiovascular: RRR Deviation from normal: lethargic - Problem List (1) Palliative care encounter Code(s): Z51.5 - ENCOUNTER FOR PALLIATIVE CARE Current Visit: No Status: Acute - Plan/Recommendations Plan: Support ashanti Mahajan RN Palliative Care met with family, please review under notes. *Revisit goals of care in line with chronic disease processes especially mental health component. [20] minutes spent on this encounter with >50% of the time in counseling and coordination of care. Thank you for this very appropriate consult.
[2019-07-08] MEDS: Oseltamivir 75 MG CAP PO SCH (20:24)
--- NOTE | 2019-07-08 22:46 | CON ---
DATE OF CONSULTATION: HISTORY: The patient I saw about 10 days ago for a pericardial effusion after she was found in her car unresponsive. She was found to be severely hypothyroid due to medical noncompliance. She has had a known pericardial effusion in the past, followed by Dr. Mcconnell. In any event, she was again found down in the shower and transiently hypotensive on admission. She underwent cardiac echo as well as CT scan of her chest. Cardiac echo shows a larger pericardial effusion per Dr. Mcconnell with more respiratory variation suggesting more pre-tamponade type findings. Her CT scan showed a pericardial effusion again, although I do not see much difference from previously. PHYSICAL EXAMINATION: GENERAL: She is awake and alert, although does have any conversations and she has family in the room talking for her. HEART: She has no cardiac murmurs. LUNGS: Show a few crackles in the right anterior chest wall. ABDOMEN: Obese and nontender. EXTREMITIES: She has strong radial and femoral pulses bilaterally. VITAL SIGNS: Blood pressure is recorded as 105 and her heart rate is 90. CURRENT MEDICATIONS: Include Lovenox. She is receiving Solu-Cortef 100 q.8. She is on insulin and levofloxacin as well as Levothroid 150 mcg orally daily. Her home medications included levothyroxine, Lantus insulin. LABORATORY VALUES: On admission, her white count was normal. Her hemoglobin was 10.3. Her chemistries demonstrated a creatinine of 1.24, which is not out of line with her previous levels. Her glucose was 250. ASSESSMENT AND PLAN: At this time, due to the respiratory variation and apparent increase in the size of the effusion, we will go ahead and do a pericardial window. I have explained to the family that this probably will have no bearing on her findings on admission or subsequent clinical course, but I feel that this should be done to prevent tamponade. We will see how she responds to the drainage procedure tomorrow. Job ID: [id number]
[2019-07-09] MEDS: Hydrocortisone Sod Succ/PF 100 mg/2 ml Vial IVP SCH ×2 (00:28→09:03)
[2019-07-09] MEDS ORDERED: Vancomycin HCl 1.25 GM in Sodium Chloride 0.9% 250 ML 250 ML IVPB SCH (01:00)
[2019-07-09 05:16] LABS: #Lymphocytes 0.5 thou/uL (1.20-3.40); #Monocytes 0.4 thou/uL (0.11-0.59); #Neutrophils 6.4 thou/uL (1.40-6.50); %Eosinophils 0.2 % (0.0-10.0); %Lymphocytes 7.1 % (21.0-51.0); %Monocytes 5.2 % (0.0-10.0); %Neutrophils 87.5 % (42.0-75.0); Hemoglobin 9.6 g/dL (12.0-16.0); Mean Corpuscular HGB CONC 33.4 g/dL (32.0-36.0); Mean Corpuscular Hemoglobin 31.9 pg (27.0-31.0); Mean Corpuscular Volume 95.5 fL (78.0-98.0); Mean Platelet Volume 8.5 fL (7.4-10.4); Platelet Count 121 thou/uL (130-400); RBC Distribution Width 13.5 % (11.5-14.5); Red Blood Cell (RBC) Count 3.01 mill/uL (4.20-5.40); White Blood Cell (WBC) Count 7.3 thou/uL (4.8-10.8)
[2019-07-09] MEDS: Levothyroxine 150 MCG TAB PO SCH (05:25)
[2019-07-09 05:36] LABS: Anion Gap 15 mmol/L (10-20); BUN (Urea Nitrogen) 29 mg/dL (7.0-18.7); Calc. Creatinine Clearance 72 mL/min (70-130); Calcium 8.6 mg/dL (7.8-10.44); Carbon Dioxide 20 mmol/L (22-29); Chloride 105 mmol/L (98-107); Estimated GFR-MDRD 46; Glucose 178 mg/dL (70-105); Potassium 3.4 mmol/L (3.5-5.1); Sodium 137 mmol/L (136-145)
[2019-07-09] MEDS ORDERED: Potassium Chloride 20 MEQ TAB PO SCH (06:15)
--- NOTE | 2019-07-09 06:19 | PDOC.FM ---
- Subjective Subjective: No overnight events. Doing well. Started on Tamiflu due to Influenza A positive. Denies SOB. Reports some bilateral LE pain. - Objective MAR Reviewed: Yes Vital Signs & Weight: Vital Signs (12 hours) Temp Pulse Resp BP Pulse Ox 07/09/19 04:10 98.4 F 71 20 110/55 L 93 L 07/09/19 02:48 77 16 97 07/08/19 19:10 98.2 F 79 16 123/69 100 07/08/19 19:07 78 16 95 Weight Admit Weight 80 kg Weight 80 kg Most Recent Monitor Data Heart Rate from ECG 85 NIBP 115/75 NIBP BP-Mean 88 Respiration from ECG 0 SpO2 93 I&O: 07/07/19 07/08/19 07/09/19 06:59 06:59 06:59 Intake Total 923.8 850 Output Total 385 1235 Balance 538.8 -385 Result Diagrams: 07/10/19 04:33 07/11/19 04:43 Phys Exam - Physical Examination Constitutional: NAD hearing impairment HEENT: moist MMs Neck: supple Respiratory: no wheezing, clear to auscultation bilateral Cardiovascular: RRR, no significant murmur Gastrointestinal: soft, non-tender, positive bowel sounds Musculoskeletal: pulses present Neurological: moves all 4 limbs Psychiatric: normal affect, A&O x 3 Skin: normal turgor Dx/Plan - Plan Plan: Acute Hypoxic Resp failure 2/2 Influenza A vs myxedema coma - CTA suggestive of lingual lobe pna, pericardial effusion, no PE - Procal 0.19 - Influenza A positive - Discontinue Levaquin - TSH: 265 (improved from last admission), T4 0.71. Will recheck in AM Large pericardial Effusion - Echo: EF 50-55%, mod pericardial effusion with >35% respiratory variation suggesting early tamponade. No pulses paradoxus on exam. - CV surg consulted, apprec recs. NPO for cardiac window today Hypothyroidism - Non-compliant with meds - Myxedema Coma likely - as above - TSH 265, recheck in AM - Dose of IV levothyroxine yesterday - Continue home meds Pericardial Effusion - CT chest - Stable from previous exam during last admission - Echo pending read Transaminintis - LFT elevated from prior values from previous visits. - US last admission negative for acute findings. Hep panel negative - likely component of shock liver DM2 - Increase home Lantus to 18U daily with aggressive SSI - CC diet, hypoglycemic protocol HLD - Will start Atorvastatin Hx of CVA - Pt not on daily ASA at home, consider starting although she is noncompliant with meds HFrEF - By echo 2014, most recent echo this hospitalization with normal EF but large pericardial effusion Asthma Code Status: FULL DVT ppx: Lovenox Lines: Right IJ removed 07/08 Addendum - Attending - Attending Attestation Date/Time: 07/09/19 2756 I personally evaluated the patient and discussed the management with Dr. Hall I agree with the History, Examination, Assessment and Plan documented above with any addition or exceptions noted below. HD#2 Patient remains well. No acute changes. ANDRE for pericardial window. Continue PO LT4. Continue tamiflu. Fareed
[2019-07-09] MEDS ORDERED: Insulin Glargine 14 UNITS in Pre-Filled Syringe 1 EACH SC SCH (09:00)
[2019-07-09] MEDS: Insulin Glargine 18 UNITS in Pre-Filled Syringe 1 EACH SC SCH (09:03)
[2019-07-09] MEDS: Oseltamivir 75 MG CAP PO SCH ×2 (09:03→20:51)
--- NOTE | 2019-07-09 09:45 | PRG ---
DATE OF SERVICE: 07/09/2019 SERVICE: Pulmonary Medicine. INTERVAL HISTORY: The patient denies having any significant degree of shortness of breath at this point. She feels very cold. She was diagnosed with influenza and is on appropriate medication for that. As of yesterday, echocardiogram suggested that she had some tamponade physiology associated with a moderate pericardial effusion. As such, she is going for a window today. She does not have any additional complaints. PHYSICAL EXAMINATION: VITAL SIGNS: Afebrile, pulse 82, blood pressure 123/68, respirations 18, saturation 95% on room air. GENERAL: The patient is awake and alert, in no apparent distress. LUNGS: Wonderful air entry with no prolonged expiratory phase or wheezing present. HEART: Normal rate. Regular. ABDOMEN: Soft, nontender, and nondistended. Bowel sounds are positive. MUSCULOSKELETAL: No cyanosis or clubbing. No pitting in the bilateral lower extremities. NEUROLOGIC: Grossly nonfocal. LABORATORY DATA: WBC 7.3, hemoglobin 9.6, platelets 121,000. D-dimer 0.39. PH 7.45, pCO2 of 36, PO2 of 137. Creatinine 1.28 and gently uptrending. Procalcitonin is unremarkable. TSH is downtrending from prior, but remains elevated at 264. Urinalysis is positive for white blood cells, but no red blood cells. Urine drug screen is completely unremarkable. Influenza A is positive. ASSESSMENT: 1. Community-acquired pneumonia secondary to influenza A. 2. Pericardial effusion with tamponade physiology, going for window today. 3. Hypothyroidism, quite severe. 4. Medical noncompliance. DISCUSSION AND PLAN: Pulmonary/Critical Care will continue to follow along, intermittently, particularly if she lands back in the ICU post procedure. It is not clear to me whether or not she can take care of herself in the outpatient setting. She may do well with a longterm placement after this hospital stay. The fluid is likely a sequela of hypothyroidism (which does not typically cause tamponade) or influenza (which typically has an associated pericarditis). Fluid analysis on the pericardial fluid will help us understand its underlying cause. At this point, there does not appear to be any impending respiratory or cardiac failure. Please call if her condition changes abruptly. Job ID: [id number] MTDD
[2019-07-09] MEDS ORDERED: guaiFENesin ER 600 MG TAB PO PRN (10:31)
[2019-07-09] MEDS ORDERED: Bupivacaine HCl 0.5%/Epinephrine 1:200,000/PF 30 ml Vial ONE (11:51)
[2019-07-09] MEDS ORDERED: Fentanyl 100 MCG/2 ML VIAL ONE ×2 (12:36→14:26)
[2019-07-09] MEDS ORDERED: Midazolam HCl 2 mg/2 ml Vial ONE (12:36)
--- NOTE | 2019-07-09 13:03 | PQF ---
[employer] Consumer Experience Consultant Crystal Reports Winform ViewerGENEVIEVE GIFFORD KAYLA *r [id number] [id number] CLINICAL DOCUMENTATION IMPROVEMENT CLARIFICATION FORM: ICD-10 Updated PLEASE DO AN ADDENDUM TO THE PROGRESS NOTE WITH ANY DOCUMENTATION UPDATES OR ADDITIONS AND CARRY THROUGH TO DC SUMMARY. THANK YOU. DATE: 07/09/19 ATTN: DR. BARRIENTOS Please exercise your independent, professional judgment in responding to the clarification form. Clinical indicators are provided on the bottom of this form for your review Please check appropriate box(s): [ ] Encephalopathy: Type: [x] Acute [ ] Subacute [ ] Chronic Etiology: [ ] Hypertensive [x] Metabolic [ ] Toxic [ ] Hepatic with Coma [ ] Hepatic w/o Coma [ ] Hypoxic [ ] Septic [ ] Drug induced: [ ] Unspecified [ ] in the setting of underlying dementia [ ] Other (please specify) [ ] Transient Alteration of Awareness [ ] Other diagnosis [ ] Unable to determine In addition, please specify: Present on Admission (POA): [x] Yes [ ] No [ ] Unable to determine For continuity of documentation, please document condition throughout progress notes and discharge summary. Thank You. CLINICAL INDICATORS - SIGNS / SYMPTOMS / LABS / RESULTS AND LOCATION IN EMR H&P 07/08: "ACUTE ENCEPHALOPATHY" RISKS: PNEUMONIA (H&P 07/08) ACUTE RESPIRATORY FAILURE (PROGRESS NOTE 07/06) LIKELY MYXEDEMA COMA VS HYPOGLYCEMIA (H&P 07/08) HYPOTENSION (H&P 07/08) TREATMENT: IV VANCOMYCIN (ER) IV LEVAQUIN (ER-07/08) IV LEVOPHED (ER) IV FLUIDS (ER) BIPAP (INITIATED IN ER) (This form is maintained as a part of the permanent medical record) [employer] Consumer Experience Consultant Crystal Reports Winform Viewer 2014 [employer]. All Rights Reserved JOEL [email or web address] Office: [phone] [employer]
[2019-07-09] MEDS ORDERED: Ondansetron HCl/PF 4 MG/2 ML Vial IVP PRN (14:21)
[2019-07-09] MEDS ORDERED: Ibuprofen 800 MG TAB PO SCH (15:00)
[2019-07-09] MEDS: HumaLOG 300 UNITS/3 ML VIAL SC PRN (15:46)
[2019-07-09] MEDS: Atorvastatin Calcium 40 MG TAB PO SCH (20:51)
[2019-07-09] MEDS: Ibuprofen 800 MG TAB PO SCH (20:51)
[2019-07-10 04:48] LABS: #Monocytes 0.4 thou/uL (0.11-0.59); #Neutrophils 5.6 thou/uL (1.40-6.50); %Basophils 0.1 % (0.0-1.0); %Eosinophils 0.6 % (0.0-10.0); %Lymphocytes 14.9 % (21.0-51.0); %Neutrophils 79.5 % (42.0-75.0); Hemoglobin 10.5 g/dL (12.0-16.0); Mean Corpuscular HGB CONC 33.5 g/dL (32.0-36.0); Mean Corpuscular Hemoglobin 32.4 pg (27.0-31.0); Mean Corpuscular Volume 96.7 fL (78.0-98.0); Mean Platelet Volume 7.6 fL (7.4-10.4); Platelet Count 132 thou/uL (130-400); RBC Distribution Width 13.7 % (11.5-14.5); Red Blood Cell (RBC) Count 3.24 mill/uL (4.20-5.40)
[2019-07-10 05:17] LABS: Anion Gap 12 mmol/L (10-20); BUN (Urea Nitrogen) 25 mg/dL (7.0-18.7); Calc. Creatinine Clearance 94 mL/min (70-130); Calcium 8.6 mg/dL (7.8-10.44); Carbon Dioxide 25 mmol/L (22-29); Chloride 106 mmol/L (98-107); Estimated GFR-MDRD 63; Glucose 70 mg/dL (70-105); Potassium 3.6 mmol/L (3.5-5.1); Sodium 139 mmol/L (136-145)
[2019-07-10] MEDS: Ibuprofen 800 MG TAB PO SCH ×3 (05:25→21:07)
[2019-07-10] MEDS: Levothyroxine 150 MCG TAB PO SCH (05:25)
[2019-07-10 05:39] LABS: Free T4 (Free Thyroxine) 1.07 ng/dL (0.70-1.48); Thyroid Stimulating Hormone 73.6363 uIU/mL (0.35-4.94)
--- NOTE | 2019-07-10 05:40 | PDOC.FM ---
- Subjective Subjective: Feeling well. Cardiac window yesterday, FERNANDO drain in place. Denies pain. No overnight events. - Objective MAR Reviewed: Yes Vital Signs & Weight: Vital Signs (12 hours) Temp Pulse Resp BP Pulse Ox 07/10/19 04:00 97.6 F 79 20 117/68 93 L 07/10/19 02:55 80 18 95 07/10/19 01:17 92 L 07/09/19 23:31 97.7 F 81 16 143/82 H 92 L 07/09/19 20:45 97.6 F 85 16 133/83 94 L 07/09/19 19:21 78 18 97 Weight Admit Weight 80 kg Weight 80 kg Most Recent Monitor Data Heart Rate from ECG 85 NIBP 115/75 NIBP BP-Mean 88 Respiration from ECG 0 SpO2 93 I&O: 07/08/19 07/09/19 07/10/19 06:59 06:59 06:59 Intake Total 923.8 850 480 Output Total 385 1235 135 Balance 538.8 -385 345 Result Diagrams: 07/10/19 04:33 07/10/19 04:33 Phys Exam - Physical Examination Constitutional: NAD HEENT: moist MMs Neck: supple Respiratory: no wheezing, clear to auscultation bilateral Cardiovascular: RRR FERNANDO drain in place with serosangenous fluid Gastrointestinal: soft, non-tender, positive bowel sounds Musculoskeletal: pulses present Neurological: moves all 4 limbs Psychiatric: normal affect, A&O x 3 Skin: no rash Deviation from normal: tattoos present Dx/Plan - Plan Plan: Acute Hypoxic Resp failure 2/2 Influenza A vs myxedema coma - CTA suggestive of lingual lobe pna, pericardial effusion, no PE - Influenza A positive, Continue Tamiflu - TSH: 265 (improved from last admission), T4 0.71. Large pericardial Effusion - Echo: EF 50-55%, mod pericardial effusion with >35% respiratory variation suggesting early tamponade. No pulses paradoxus on exam. - CV surg consulted, apprec recs. - Cardiac window on 07/09, fluid studies pending Hypothyroidism - Non-compliant with meds - Continue home meds Transaminintis - LFT elevated from prior values from previous visits. - US last admission negative for acute findings. Hep panel negative - likely component of shock liver - Will recheck LFTs today DM2 - Lantus to 18U daily with aggressive SSI - CC diet, hypoglycemic protocol HLD - Continue Atorvastatin Hx of CVA - Consider starting ASA prior to d/c HFrEF - By echo 2014, most recent echo this hospitalization with normal EF but large pericardial effusion Asthma Code Status: FULL DVT ppx: Lovenox Lines: Right IJ removed 07/08 Dispo: Pt cannot take care of herself at home. Pallative care has scheduled a family meeting for Friday
[2019-07-10 06:27] LABS: ALT (SGPT) 112 U/L (8-55); AST (SGOT) 33 U/L (5-34); Albumin 3.5 g/dL (3.5-5.0); Alkaline Phosphatase 143 U/L (40-110); Bilirubin, Direct 0.2 mg/dL (0.1-0.3); Bilirubin, Total 0.5 mg/dL (0.2-1.2); Protein, Total 6.1 g/dL (6.0-8.3)
[2019-07-10] MEDS: Insulin Glargine 18 UNITS in Pre-Filled Syringe 1 EACH SC SCH (09:25)
[2019-07-10] MEDS: Oseltamivir 75 MG CAP PO SCH ×2 (09:25→21:10)
--- NOTE | 2019-07-10 17:27 | PRG ---
DATE OF SERVICE: 07/10/2019 Please see note from Dr. Hall, for which I agree. The patient was seen, evaluated, discussed, and examined with the residents by bedside. This is extremely complicated 44-year-old with history of severe myxedema, secondary to noncompliance, on thyroid medicine at home. She comes in with respiratory issues, syncope, questionable hypoglycemia, and was found to have both flu A and was also found to have a very large pericardial effusion, for which she had a cardiac window done yesterday. Postoperatively, she is doing well. She did not complain of too much shortness of breath. There is also a possible pneumonia on the CT, thought to be all probably viral. She is on Tamiflu, is on her thyroid medicine, and just watching her closely as far as her respiratory status and make sure her heart is doing okay, which it sounds like it is. Keeping her on sliding scale and insulin, not currently on antibiotics. Ultimately, we will need placement as it sounds like it is very doubtful that she is able to take her medicines at home and take care of herself secondary to schizophrenia type issues noted on the chart and so, we are looking into potential placement without palliative care that we appreciate. Job ID: [id number]
[2019-07-10] MEDS: Atorvastatin Calcium 40 MG TAB PO SCH (21:07)
[2019-07-11] MEDS: Levothyroxine 150 MCG TAB PO SCH (05:57)
[2019-07-11] MEDS: Ibuprofen 800 MG TAB PO SCH ×3 (05:57→21:03)
[2019-07-11 05:59] LABS: Anion Gap 9 mmol/L (10-20); BUN (Urea Nitrogen) 27 mg/dL (7.0-18.7); Calc. Creatinine Clearance 88 mL/min (70-130); Calcium 8.3 mg/dL (7.8-10.44); Carbon Dioxide 27 mmol/L (22-29); Chloride 106 mmol/L (98-107); Estimated GFR-MDRD 56; Glucose 200 mg/dL (70-105); Potassium 3.3 mmol/L (3.5-5.1); Sodium 139 mmol/L (136-145)
[2019-07-11] MEDS ORDERED: Potassium Chloride 20 MEQ TAB PO SCH (06:15)
--- NOTE | 2019-07-11 06:15 | PDOC.FM ---
- Subjective Subjective: No overnight events. Feeling well. Does report some pain but it is "bearable." Endorses constipation. - Objective MAR Reviewed: Yes Vital Signs & Weight: Vital Signs (12 hours) Temp Pulse Resp BP BP Pulse Ox 07/11/19 03:00 97.9 F 83 18 138/83 96 07/11/19 02:51 91 L 07/10/19 20:55 97.5 F L 96 18 118/75 93 L 07/10/19 18:32 80 18 95 Weight Admit Weight 80 kg Weight 82.1 kg Most Recent Monitor Data Heart Rate from ECG 85 NIBP 115/75 NIBP BP-Mean 88 Respiration from ECG 0 SpO2 93 I&O: 07/09/19 07/10/19 07/11/19 06:59 06:59 06:59 Intake Total 680 593 2302 Output Total 1235 135 50 Balance -410 379 7180 Result Diagrams: 07/10/19 04:33 07/11/19 04:43 Phys Exam - Physical Examination Constitutional: NAD HEENT: moist MMs Neck: supple Respiratory: no wheezing, clear to auscultation bilateral Cardiovascular: RRR Gastrointestinal: soft, non-tender Musculoskeletal: no edema Neurological: moves all 4 limbs Psychiatric: normal affect, A&O x 3 Skin: no rash Dx/Plan - Plan Plan: Acute Hypoxic Resp failure 2/2 Influenza A vs myxedema coma - CTA suggestive of lingual lobe pna, pericardial effusion, no PE - Influenza A positive, Continue Tamiflu - TSH: 265 (improved from last admission), T4 0.71. Large pericardial Effusion - Echo: EF 50-55%, mod pericardial effusion with >35% respiratory variation suggesting early tamponade. No pulses paradoxus on exam. - CV surg consulted, apprec recs. - Cardiac window on 07/09, fluid studies NGTD Hypothyroidism - Non-compliant with meds - Continue home meds Transaminintis - LFT elevated from prior values from previous visits. - US last admission negative for acute findings. Hep panel negative - likely component of shock liver - Will recheck LFTs today DM2 - Lantus to 18U daily with aggressive SSI - CC diet, hypoglycemic protocol HLD - Continue Atorvastatin Hx of CVA - Consider starting ASA prior to d/c HFrEF - By echo 2014, most recent echo this hospitalization with normal EF but large pericardial effusion Asthma Code Status: FULL DVT ppx: Lovenox Lines: Right IJ removed 07/08 Dispo: Pt cannot take care of herself at home. [facility]
[2019-07-11] MEDS ORDERED: Polyethylene Glycol 3350 17 GM Packet PO PRN (07:30)
[2019-07-11] MEDS: Oseltamivir 75 MG CAP PO SCH ×2 (09:19→21:03)
[2019-07-11] MEDS: Insulin Glargine 18 UNITS in Pre-Filled Syringe 1 EACH SC SCH (09:19)
[2019-07-11] MEDS: HumaLOG 300 UNITS/3 ML VIAL SC PRN ×2 (09:20→21:02)
--- NOTE | 2019-07-11 16:30 | PRG ---
DATE OF SERVICE: Please see note from Dr. Hall, for which I agree. The patient was seen, evaluated, discussed, and examined with the residents by bedside. The patient is doing fairly well from a fluid standpoint. It sounds like afebrile. Still have a little bit of coughing on exam. Had a little bit of wheezing. From a pericardial effusion standpoint after the pericardial window, it sounds like she is not having any signs or symptoms of tamponade or anything like that. Biggest issue on her is return of preop placement. This sounds like normal history of noncompliance with medications and secondary to possible psychiatric intellectual disabilities unclear. She is able to really take care of herself on her own, so trying to get case management involved to see if we can find her placement long-term. Job ID: [id number]
[2019-07-11] MEDS: Atorvastatin Calcium 40 MG TAB PO SCH (21:02)
[2019-07-12] MEDS: Ibuprofen 800 MG TAB PO SCH ×2 (05:16→15:06)
[2019-07-12] MEDS: Levothyroxine 150 MCG TAB PO SCH (05:16)
[2019-07-12 05:53] LABS: Anion Gap 11 mmol/L (10-20); BUN (Urea Nitrogen) 31 mg/dL (7.0-18.7); Calc. Creatinine Clearance 71 mL/min (70-130); Calcium 8.6 mg/dL (7.8-10.44); Carbon Dioxide 25 mmol/L (22-29); Chloride 105 mmol/L (98-107); Estimated GFR-MDRD 44; Glucose 182 mg/dL (70-105); Potassium 3.7 mmol/L (3.5-5.1); Sodium 137 mmol/L (136-145)
--- NOTE | 2019-07-12 06:23 | PDOC.FM ---
- Subjective Subjective: Feeling well this morning. Eating breakfast. Denies pain, SOB. Reports constipation. FERNANDO drain has been pulled. - Objective MAR Reviewed: Yes Vital Signs & Weight: Vital Signs (12 hours) Temp Pulse Resp BP BP Pulse Ox 07/12/19 05:23 149/76 H 07/12/19 04:00 97.9 F 80 17 161/91 H 93 L 07/11/19 21:35 87 18 93 L 07/11/19 19:35 97.8 F 100 20 133/74 94 L 07/11/19 19:00 88 18 92 L Weight Admit Weight 80 kg Weight 82.1 kg Most Recent Monitor Data Heart Rate from ECG 85 NIBP 115/75 NIBP BP-Mean 88 Respiration from ECG 0 SpO2 93 I&O: 07/10/19 07/11/19 07/12/19 06:59 06:59 06:59 Intake Total 480 1060 960 Output Total 135 120 860 Balance 345 940 100 Result Diagrams: 07/10/19 04:33 07/12/19 04:27 Phys Exam - Physical Examination Constitutional: NAD HEENT: moist MMs Neck: supple Respiratory: no wheezing, clear to auscultation bilateral Cardiovascular: RRR Dressing over chest at cardiac window site Gastrointestinal: soft, non-tender, positive bowel sounds Musculoskeletal: no edema Neurological: moves all 4 limbs Psychiatric: normal affect, A&O x 3 Skin: no rash Dx/Plan - Plan Plan: Acute Hypoxic Resp failure 2/2 Influenza A vs myxedema coma - CTA suggestive of lingual lobe pna, pericardial effusion, no PE - Influenza A positive, Continue Tamiflu - Family meeting today for goals of care and placement Large pericardial Effusion - Echo: EF 50-55%, mod pericardial effusion with >35% respiratory variation suggesting early tamponade. No pulses paradoxus on exam. - CV surg consulted, apprec recs. - Cardiac window on 07/09, fluid studies NGTD Hypothyroidism - Non-compliant with meds - Continue home meds Transaminintis - LFT elevated from prior values from previous visits. - US last admission negative for acute findings. Hep panel negative - likely component of shock liver DM2 - Lantus to 18U daily with aggressive SSI - CC diet, hypoglycemic protocol HLD - Continue Atorvastatin Hx of CVA - Consider starting ASA prior to d/c HFrEF - By echo 2015, most recent echo this hospitalization with normal EF but large pericardial effusion Asthma Code Status: FULL DVT ppx: Lovenox Lines: Right IJ removed 07/08 Addendum - Attending - Attending Attestation Date/Time: 07/12/19 0901 I personally evaluated the patient and discussed the management with Dr. Hall. I agree with the History, Examination, Assessment and Plan documented above with any addition or exceptions noted below. Patient was sitting up eating breakfast and stated she felt well. There is a possible family meeting this afternoon regarding placement. Pt has history of noncompliance. Continue treatment for the flu.
[2019-07-12] MEDS: Oseltamivir 75 MG CAP PO SCH ×2 (08:44→15:46)
[2019-07-12] MEDS: Insulin Glargine 18 UNITS in Pre-Filled Syringe 1 EACH SC SCH (08:44)
[2019-07-12] MEDS ORDERED: Polyethylene Glycol 3350 17 GM Packet PO SCH (10:15)
[2019-07-12] MEDS ORDERED: Insulin Glargine 5 UNITS in Pre-Filled Syringe 1 EACH SC SCH (10:15)
[2019-07-12] MEDS: HumaLOG 300 UNITS/3 ML VIAL SC PRN (11:51)
--- NOTE | 2019-07-12 12:22 | OP ---
DATE OF PROCEDURE: 07/09/2019 PREOPERATIVE DIAGNOSIS: Pericardial effusion. PROCEDURE PERFORMED: Pericardial window with specimen sent from pericardial tissue as well as fluid, 250 mL of clear fluid was removed. ANESTHESIA: General. ESTIMATED BLOOD LOSS: Minimal. DESCRIPTION OF PROCEDURE: After adequate anesthesia had been obtained, the patient was prepped and draped. A midline incision was made for about 2.5 cm, carried through the fascia and blunt and sharp dissection under the sternum to visualize the pericardium. Pericardium was incised. The specimen was removed, and a 19-Nicolas drain was placed through a separate stab incision. Following this, the fascia was closed in layers. The subcutaneous tissue was closed, and skin was closed. Marcaine with epi was used to infiltrate the subcutaneous tissues, and the patient was to be taken to the recovery room. Job ID: [id number]
--- NOTE | 2019-07-12 12:25 | PDOC.PALF ---
Purpose of Conference: Goals of care/discharge plans to optimize complicancy with medications preventing recurrent hospital stays Care Providers Present: Librado LEONARD-C, Belen Mahajan RN, Librado CALDERÓNP-BC [facility] Family Members Present: tow sisters Meeting Comments: Patient anxious with elevated emotions. Desires to go home. Sister Sydney states that Ms Green wishes to be a DNAR (This was not confirmed with patient) Concern is patiets limited resources, living situation, mental health issues, and chronic non-compliancy Goals of Care: Primary goal will be to have patient take thyroid medication. 1) Librado Pickett with [facility] program to perform home visits to assess patient and facilitate medication compliancy 2) Should patient continue to remain non complinat she has requested in the past to seek hospice. Summary: as stated above Total Time Spent with Family: 25min
[2019-07-12] MEDS: Atorvastatin Calcium 40 MG TAB PO SCH (15:46)
[2019-07-12 16:50] VITALS: BP 130/58; TEMP 97.9
[2019-07-13] MEDS ORDERED: Insulin Glargine 23 UNITS in Pre-Filled Syringe 1 EACH SC SCH (09:00)
--- NOTE | 2019-07-13 12:04 | DIS ---
DATE OF ADMISSION: 07/07/2019 DATE OF DISCHARGE: 07/12/2019 RESIDENT: Amanda Hall MD, PGY-2. ADMITTING ATTENDING: Cami Wang MD DISCHARGE ATTENDING: Jenny Barger MD CONSULTS: 1. Cardiovascular Surgery, Marcial Shelby MD. 2. Pulmonology, Rome Dyer MD. 3. Palliative Care. PROCEDURES PERFORMED: 1. Brain CT 07/07/2019, no acute intracranial abnormality demonstrated. Sinus disease and mastoid effusion. 2. Chest CTA 07/07/2019, no CT evidence of pulmonary embolism. Cardiomegaly with moderate pericardial effusion. Patchy parenchymal opacities and small focal area of consolidation in the right upper lobe and in the lingula worrisome for infectious process. Atypical infectious process. Pneumonia is a possibility. 3. Chest x-ray 07/07/2019, cardiomegaly, mild vascular engorgement. Perihilar haziness suggestive of mild perihilar edema or infiltrate. A calcified nodule in the peripheral right lung again noted. 4. Echocardiogram 07/08/2019, LVEF estimated at 50% to 55%. No right atrial collapse and diastole. Mild mitral and tricuspid regurgitation present. Moderate pericardial effusion with greater than 35% respiratory variation suggesting early tamponade. 5. Postoperative note 07/09/2019, pericardial window with specimen sent from pericardial tissue as well as fluid, 250 mL of clear fluid was removed. PRIMARY DIAGNOSES: 1. Acute hypoxic respiratory failure secondary to influenza A versus myxedema coma. 2. Large pericardial effusion. 3. Hypothyroidism. 4. Transaminitis. 5. Type 2 diabetes. 6. Hyperlipidemia. 7. History of cerebrovascular accident. 8. Heart failure with reduced ejection fraction. 9. Asthma. DISCHARGE MEDICATIONS: 1. Atorvastatin 40 mg at bedtime. 2. Mucinex 600 mg q.12 hours p.r.n. 3. Ibuprofen 400 mg q.8 hours p.r.n. 4. Lantus 14 units subcu q.a.m. 5. Levothyroxine 150 mcg, 0600 daily. 6. Tamiflu 75 mg b.i.d. for an additional one day. HISTORY OF PRESENT ILLNESS/HOSPITAL COURSE: Ms. Green is a 44-year-old female , who was recently discharged 5 days prior to this admission, at that time was admitted for myxedema coma. This admission, she was found down by family member , altered, hypoxic, and hypotensive. She was started on BiPAP, given IV fluids, had right IJ placed and was started on Levophed. CTA was negative for PE but showed a likely lingual lobe pneumonia and moderate pericardial effusion. TSH was found to be in the 200s. At prior admission, it was in the 500s. She was able to quickly wean off BiPAP and Levophed. An echocardiogram was performed that showed worsening pericardial effusion with signs of cardiac tamponade. Cardiovascular Surgery was consulted, who performed cardiac window and fluid was drained. Fluid studies were normal. The patient was checked for influenza and was influenza A positive, started on Tamiflu. Procalcitonin was negative and Levaquin was discontinued. Patient was transferred to telemetry and IJ was removed on 07/08. Palliative Care was consulted to help family come up with plan to avoid readmission for noncompliance with levothyroxine. Plan is for Home Health to go out to patient' s house twice a week until patient is tolerating levothyroxine doses twice weekly and then switch to once weekly levothyroxine doses. In regard to her other medical conditions of type 2 diabetes, hyperlipidemia, history of CVA and heart failure with reduced ejection fraction, she was started on atorvastatin and aspirin. By most recent echo, she had normal ejection fraction. Prior echo in 2014 did show reduced ejection fraction. In regard to transaminitis, her LFTs were elevated from prior admission. This is likely secondary to shock liver that downtrended prior to discharge. DISPOSITION: Stable. DISCHARGE INSTRUCTIONS: 1. Location: Home. 2. Diet: Heart healthy. 3. Activity: No restrictions. 4. Followup: Follow up with Home Health and PCP within 7 days. Job ID: [id number] [facility]ENTERShweta
--- NOTE | 2019-07-14 04:03 | PQF ---
GENEVIEVE GIFFORD KATHERINE MD [id number] U-[id number] CLINICAL DOCUMENTATION CLARIFICATION FORM: POST DISCHARGE Addendum to original discharge summary date: ____ Late entry note date: __ DATE: 07/14/19 ATTN: Jenny Peña Please exercise your independent, professional judgment in responding to the clarification form. Clinical indicators are provided on the bottom of this form for your review Can you please further specify the etiology of Pericardial effusion? Please check appropriate box(s): [ ] Pericardial effusion due to Pneumonia [ ] Pericardial effusion of unknown etiology [ ] Other diagnosis please specify [ ] Unable to determine In addition, please specify: Present on Admission (POA): [ ] Yes [ ] No [ ] Unable to determine For continuity of documentation, please document condition throughout progress notes and discharge summary. Thank You. CLINICAL INDICATORS - SIGNS / SYMPTOMS / LABS ED Notes 07/07 "presents with evaluation of syncope" PN 07/09 "the fluid is likely a sequela of hypothyroidism (which does not typically cause tamponade) or influenza (which typically has an associated pericarditis)" ED Notes 07/07 "she felt like her chest was tight and she could not catch her breath" ED Notes 07/07 "reports SOB" HP 07/07 "moderate pericardial effusion" PN 07/09 "pericardial effusion with tamponade physiology" DS 07/12 "Fluid studies were normal" RISK FACTORS ED Notes 07/07-Cardiomyopathy ED Notes 07/07-CHF ED Notes 07/07-Old OR ED Notes 07/07-HLD HP 07/07-Adult myxedema DS 07/12-Acute hypoxic respiratory failure DS 07/12-PNA with influenza TREATMENTS: HP 07/07-Chest CT HP 07/07-Echo OP Note 07/09-Pericardial window DS 07/12-Cardiovascular surgery consult DS 07/12-Pulmo Consult DS 07/12-Bipap 07/12-CVC NOV 22-Levaquin 750mg IV NOV 22-Levophed 4mg IV NOV 22-IVF (This form is maintained as a part of the permanent medical record) 2014 [employer] All Rights Reserved Ken [not provided] MTDD
[2019-07-15 09:10] LABS: Fungus Stain Final report (.)
== END 2019-07-12 17:28 | disposition home or self-care (01) | DRG 270 ==
LOC: ERS 20:14 → CCU 22:47 → 2NO 07-08 18:27
PROVIDERS: ADMIT Family Medicine; ATTEND Family Medicine
PROC: 3E033XZ Introduction of Vasopressor into Peripheral Vein, Percutaneous Approach (ICD-10-PCS; 2019-07-07)
PROC: 5A09457 Assistance with Respiratory Ventilation, 24-96 Consecutive Hours, Continuous Positive Airway Pressure (ICD-10-PCS; 2019-07-07)
PROC: 3E02340 Introduction of Influenza Vaccine into Muscle, Percutaneous Approach (ICD-10-PCS; 2019-07-08)
PROC: 02H633Z Insertion of Infusion Device into Right Atrium, Percutaneous Approach (ICD-10-PCS; 2019-07-08)
PROC: 0W9D00Z Drainage of Pericardial Cavity with Drainage Device, Open Approach (ICD-10-PCS; principal; 2019-07-09)
DX: I31.3 Pericardial effusion (noninflammatory) (principal); J10.00 Influenza due to other identified influenza virus with unspecified type of pneumonia; J96.01 Acute respiratory failure with hypoxia; E03.5 Myxedema coma; G93.41 Metabolic encephalopathy; K72.00 Acute and subacute hepatic failure without coma; E27.40 Unspecified adrenocortical insufficiency; I50.22 Chronic systolic (congestive) heart failure; I42.9 Cardiomyopathy, unspecified; Z23 Encounter for immunization; Z51.5 Encounter for palliative care; F41.9 Anxiety disorder, unspecified; G47.00 Insomnia, unspecified; E11.649 Type 2 diabetes mellitus with hypoglycemia without coma; E03.9 Hypothyroidism, unspecified; F31.9 Bipolar disorder, unspecified; F20.9 Schizophrenia, unspecified; E78.5 Hyperlipidemia, unspecified; I95.9 Hypotension, unspecified; E66.01 Morbid (severe) obesity due to excess calories; I11.0 Hypertensive heart disease with heart failure; J45.909 Unspecified asthma, uncomplicated; Z91.14 Patient's other noncompliance with medication regimen; Z90.49 Acquired absence of other specified parts of digestive tract; Z88.0 Allergy status to penicillin; Z88.1 Allergy status to other antibiotic agents; Z88.2 Allergy status to sulfonamides; Z79.4 Long term (current) use of insulin; Z68.36 Body mass index [BMI] 36.0-36.9, adult; Z90.710 Acquired absence of both cervix and uterus; Z87.891 Personal history of nicotine dependence; I25.2 Old myocardial infarction; H91.93 Unspecified hearing loss, bilateral; E78.00 Pure hypercholesterolemia, unspecified; Z85.41 Personal history of malignant neoplasm of cervix uteri; Z86.73 Personal history of transient ischemic attack (TIA), and cerebral infarction without residual deficits; I31.4 Cardiac tamponade
CPT/HCPCS: 36415; 36416; 36556; 51702; 70450; 71045; 71275; 80048; 80053; 80076; 80306; 80307; 81003; 81015; 82140; 82533; 82550; 82805; 83605; 83690; 83880; 84145; 84439; 84443; 84480; 84484; 85025; 85379; 87070; 87086; 87102; 87116; 87149; 87205; 87206; 87804; 88112; 88305; 93005; 93306; 94640; 94644; 94660; 94760; 96361; 96365; 96366; 96375; A4353; J0670; J1100; J1650; J1720; J1815; J1956; J2250; J3010; J3370; J7050; J7611; J7620; Q9966

== ENCOUNTER 2019-07-17 15:57 | Inpatient (IN) | payer OTHER ==
[2019-07-17 16:41] LABS: #Basophils 0.1 thou/uL (0.0-0.2); #Lymphocytes 1.4 thou/uL (1.20-3.40); #Monocytes 0.3 thou/uL (0.11-0.59); #Neutrophils 5.2 thou/uL (1.40-6.50); %Basophils 0.8 % (0.0-1.0); %Eosinophils 0.5 % (0.0-10.0); %Lymphocytes 19.6 % (21.0-51.0); %Monocytes 4.9 % (0.0-10.0); %Neutrophils 74.2 % (42.0-75.0); Hemoglobin 12.2 g/dL (12.0-16.0); Mean Corpuscular HGB CONC 33.8 g/dL (32.0-36.0); Mean Corpuscular Hemoglobin 31.6 pg (27.0-31.0); Mean Corpuscular Volume 93.7 fL (78.0-98.0); Mean Platelet Volume 7.2 fL (7.4-10.4); Platelet Count 276 thou/uL (130-400); RBC Distribution Width 12.9 % (11.5-14.5); Red Blood Cell (RBC) Count 3.87 mill/uL (4.20-5.40)
[2019-07-17] MEDS ORDERED: D5 1/4 NS 1,000 ML IV SCH (16:45)
--- NOTE | 2019-07-17 16:47 | RAD ---
PORTABLE CHEST: 07/17/19 HISTORY: Cough. COMPARISON: 07/07/19 study. Heart size is within normal limits considering the portable technique with atherosclerotic changes of the aorta. The parenchymal lung changes in the region of the lingula appears slightly more prominent than on the prior examination. Right upper lobe infiltrative changes are definitively more prominent . IMPRESSION: Increasing infiltrative lung changes to the right upper lobe. Also suggestion of some slight increase to the changes within the lingula. POS: [facility]
[2019-07-17 17:14] LABS: ALT (SGPT) 65 U/L (8-55); AST (SGOT) 44 U/L (5-34); Albumin 4.3 g/dL (3.5-5.0); Alkaline Phosphatase 158 U/L (40-110); Anion Gap 18 mmol/L (10-20); BUN (Urea Nitrogen) 34 mg/dL (7.0-18.7); Bilirubin, Total 0.4 mg/dL (0.2-1.2); Calc. Creatinine Clearance 0 mL/min (70-130); Calcium 8.6 mg/dL (7.8-10.44); Carbon Dioxide 22 mmol/L (22-29); Chloride 106 mmol/L (98-107); Estimated GFR-MDRD 77; Globulin 3.1 g/dL (2.4-3.5); Glucose 61 mg/dL (70-105); Potassium 4.8 mmol/L (3.5-5.1); Protein, Total 7.4 g/dL (6.0-8.3); Sodium 141 mmol/L (136-145)
--- NOTE | 2019-07-17 17:42 | PDOC.FPRHP ---
- History of Present Illness Chief Complaint: hypoglycemia History of Present Illness: 44 yo f c/o hypoglycemia episodes. Cousin helped provide history. Pt blood sugar was 48 at lunch and was given 50U Lantus. Pt's cousin didn't understand how to take care of pt regarding her diabetes. Cousin has been monitoring vitals daily and giving 50U lantus BID. Cousin noticed pt's BP was low and HR in 40 w/ the blood sugar of 48 and did not know what to do so she brought pt in to be evaluated. Does not have thermometer at home so did not know temp. Pt denies feeling fevers or chills. Recent discharge from the hospital for acute hypoxic respiratory failure and pericardial effusion s/p pericardial window. ED Course: In ER given 1 amp D50. Started on D5 drip. Repeat blood glucose 145 in the room. Started vancomycin and levaquin. Mitul hugger placed after rectal temp of 93.0. EKG done. - Allergies/Adverse Reactions Allergies Allergy/AdvReac Type Severity Reaction Status Date / Time amoxicillin trihydrate Allergy Severe Rash Verified 07/08/19 14:42 [From Trimox] doxycycline Allergy Severe Anaphylaxis Verified 06/29/19 23:44 peach Allergy Severe Verified 07/08/19 14:41 Penicillins Allergy Severe Anaphylaxis Verified 06/29/19 23:44 strawberry Allergy Severe Verified 07/08/19 14:41 sulfamethoxazole Allergy Severe Anaphylaxis Verified 06/29/19 23:44 [From Bactrim] trimethoprim [From Bactrim] Allergy Severe Anaphylaxis Verified 06/29/19 23:44 orange juice Allergy Verified 07/08/19 14:42 - Home Medications Medication Instructions Recorded Confirmed Type Insulin Detemir 100 UNITS/ML 50 unit SQ HS 06/29/19 07/09/19 History [Levemir] Insulin Detemir 100 UNITS/ML 50 units SC QAM 06/29/19 07/09/19 History [Levemir] Insulin Glargine [Lantus Vial] 14 units SC QAM vial 07/02/19 07/09/19 Rx Atorvastatin Calcium [Lipitor] 40 mg PO HS #30 tab 07/11/19 Rx guaiFENesin ER [Mucinex] 600 mg PO Q12H PRN tab 07/11/19 Rx Ibuprofen [Motrin] 400 mg PO Q8HR tab 07/12/19 Rx Levothyroxine [Synthroid] 150 mcg PO 0600 #30 tab 07/12/19 Rx Oseltamivir [Tamiflu] 75 mg PO BID #2 cap 07/12/19 Rx - History PMHx: Hypothyroidism, Schizophrenia or schizoaffective disorder (no meds taken for this problem), Hearing loss bilaterally, Type 2 Diabetes, CAD PSHx: Pericardial window FHx: noncontributory Social: Lives in camper next to cousin's house. Uses walker at home. Has had decreased mobility in past few years. Previous smoker (quit 1 week ago after last hospitalization). ~20 years at 1-2 ppd. More recently has smoked 0.5 ppd. Hx of alcohol abuse. Has been 4-5 years since her last drink. Previous history of illicit drug abuse. Reports last use was 4-5 years ago. - Review of Systems General: denies: fever/chills, weight/appetite/sleep changes Eyes: denies: vision changes ENT: denies: nasal congestion, rhinorrhea Respiratory: denies: cough, congestion, shortness of breath Cardiovascular: denies: chest pain, palpitation, edema Gastrointestinal: denies: nausea, vomiting, diarrhea, abdominal pain, GI bleeding Genitourinary: reports: incontinence (of bowel and bladder, baseline and wears changable diapers per cousin) Skin: denies: rashes Musculoskeletal: denies: pain, tenderness Neurological: denies: numbness, syncope, seizure Psychological: reports: other (schizophrenia). denies: anxiety, depression - Vital signs BP: 125/84 HR: 82 RR: 16 Temp: 90.3F Pox: 94% on RA Wt: - Physical Exam Constitutional: NAD, awake, alert and oriented HEENT: normocephalic and atraumatic, EOMI, conjunctiva clear, no scleral icterus , other (hard of hearing) Neck: supple, trachea midline, no LAD, no thyromegaly Heart: RRR, normal S1/S2, no murmurs/rubs/gallops, pulses present Lungs: no wheezing -Lungs: coarse rhonchi diffusely in all lung parmar Abdomen: soft, non-tender, bowel sounds present Musculoskeletal: normal structure, normal tone Neurological: no focal deficit -Skin: substernal vertical incision from pericardial window, glue in place, well healing without dehiscence, skin of dorsal feet dry/caked/cracked. Toenails thickened bilaterally. Heme/Lymphatic: no unusual bruising or bleeding, no purpura, no petechia Psychiatric: normal mood and affect, intact recent and remote memory FMR H&P: Results - Labs Result Diagrams: 07/17/19 16:26 07/17/19 16:26 Lab results: WBC 7.0 thou/uL (4.8-10.8) 07/17/19 16:26 Hgb 12.2 g/dL (12.0-16.0) 07/17/19 16:26 Hct 36.2 % (36.0-47.0) 07/17/19 16:26 MCV 93.7 fL (78.0-98.0) 07/17/19 16:26 Plt Count 276 thou/uL (130-400) 07/17/19 16:26 Neutrophils % 74.2 % (42.0-75.0) 07/17/19 16:26 Sodium 141 mmol/L (136-145) 07/17/19 16:26 Potassium 4.8 mmol/L (3.5-5.1) 07/17/19 16:26 Chloride 106 mmol/L (98-107) 07/17/19 16:26 Carbon Dioxide 22 mmol/L (22-29) 07/17/19 16:26 BUN 34 mg/dL (7.0-18.7) H 07/17/19 16:26 Creatinine 0.81 mg/dL (0.6-1.1) 07/17/19 16:26 Glucose 61 mg/dL (70-105) L 07/17/19 16:26 Calcium 8.6 mg/dL (7.8-10.44) 07/17/19 16:26 Total Bilirubin 0.4 mg/dL (0.2-1.2) 07/17/19 16:26 AST 44 U/L (5-34) H 07/17/19 16:26 ALT 65 U/L (8-55) H 07/17/19 16:26 Alkaline Phosphatase 158 U/L (40-110) H 07/17/19 16:26 Serum Total Protein 7.4 g/dL (6.0-8.3) 07/17/19 16:26 Albumin 4.3 g/dL (3.5-5.0) 07/17/19 16:26 FMR H&P: A/P - Problem List (1) Hypoglycemia Current Visit: Yes Status: Acute Code(s): E16.2 - HYPOGLYCEMIA, UNSPECIFIED (2) Hypothermia Current Visit: Yes Status: Acute Code(s): T68.XXXA - HYPOTHERMIA, INITIAL ENCOUNTER (3) Diabetes type 2, uncontrolled Current Visit: No Status: Chronic Code(s): E11.65 - TYPE 2 DIABETES MELLITUS WITH HYPERGLYCEMIA (4) Diastolic heart failure Current Visit: No Status: Chronic Code(s): I50.30 - UNSPECIFIED DIASTOLIC ( CONGESTIVE) HEART FAILURE Qualifiers: Heart failure chronicity: chronic Qualified Code(s): I50.32 - Chronic diastolic (congestive) heart failure (5) History of coronary artery disease Current Visit: No Status: Chronic Code(s): Z86.79 - PERSONAL HISTORY OF OTHER DISEASES OF THE CIRCULATORY SYSTEM (6) Hyperlipidemia Current Visit: No Status: Chronic Code(s): E78.5 - HYPERLIPIDEMIA, UNSPECIFIED (7) Hypothyroidism Current Visit: No Status: Chronic Code(s): E03.9 - HYPOTHYROIDISM, UNSPECIFIED (8) Pneumonia Current Visit: No Status: Acute Code(s): J18.9 - PNEUMONIA, UNSPECIFIED ORGANISM - Plan 44 yo female w/ complex PMHx admitted for: Hypoglycemia, likely iatrogenic from improper insulin administration - likely unintentional secondary to poor diabetes education. Other DDx: 2/2 infection - initial bG of 48. - correcting w/ D5 1/4NS at 200mL/hr - Blood glucose checks q1h for next 4 hours. Then q2h checks. - Sliding scale humalog insulin, moderate - Hold home lantus until dosing is adjusted and sugars stay within acceptable range. - Reconcile home medications w/ medications from last discharge - Dietary consult for diabetes education of pt and family caretakers prior to discharge Hypothermia - rectal temp of 90.3 in ER requiring mitul hugger - improved to ~98 orally. Mitul hugger discontinued - continue to monitor. - blood cultures pending Hospital acquired pneumonia versus persistent PNA from previous hospitalization - CXR showing infiltrate increase in RUL as compared w/ prior, possible infiltrate in lingula as well - per chart review, pt had lingular infiltrate on last admission - Initiated vanc/levaquin 07/17 - Procalcitonin ordered - May continue home mucinex for symptoms - Will monitor Type 2 Diabetes Mellitus, uncontrolled Hx of CAD -Last A1C per chart review was done in January 2018 and was 11.4 -A1C, Magnesium, phosphorus, TSH, and lipid panel ordered for risk stratification - See above for insulin mgmt Hypothyroidism - unsure of compliance. TSH pending - Continue home dose of levothyroxine 150mcg in AM at 0600 Schizophrenia vs schizoaffective disorder - monitor closely - pt does not take any medications for this per chart review - case mgmt consulted for discharge planning as pt may require higher level of care at home Decreased mobility - uses walker, ordered PT/OT Hx of CHF w/ reduced EF HLD - continue atorvastatin - ECHO on last admission showed normal EF. Will continue to monitor. Pt is not on any heart failure medications. Code: FULL VTE PPx: LVX GI ppx: none Fluids: see above Dispo: admit to IMCU, possible transfer to tele tomorrow if stable. LOS > 48 hr. Case mgmt for discharge planning. Disposition/LOS: Admit as inpatient to IM. Pt will be appropriate for telemetry floor once stabilized. FMR H&P: Upper Level - Pertinent history 44 yo f admitted for hypoglycemia, hypothermia, and HAP vs CAP. - Pertinent findings HR 80s R: 16 BP: 120s/80s T: 90.3F, 98.2F after bear hugger Coarse breath sounds RRR abdomen soft nondistended nontender a&ox3 CXR: RUL infiltrate and lingular infiltrate Recent hospitalization + for influenza A - Plan Date/Time: 07/17/19 1742 A/P: #hypoglycemia- -improved on D5 @ 200ml/hr; will transition to d5 1/2 normal saline at 125ml/hr -q1h accuchecks, ok to space out if stable -ssi ordered; hold home dose and see what her requirement is over the next 24 hours -diabetes education -cm for placement #HAP vs CAP- -CXR with worsening infiltrate -HR for staph infection after recent influenza A infection -will continue vanc and levaquin, and trend procal #hypothermia- -concern for HAP vs CAP -lives in a camper with a space heater -bear hugger started #schizophrenia- -restart home meds #diabetes, type 2 -ss ordered -hba1c -consider restarted lantus based on weight vs total insulin requirement over the next 24 hours CODE: full Diet: diabetes DVT ppx: jordanx Reji Balderas MD, PGY-3 Addendum - Attending - Attending Attestation Date/Time: 07/17/192110 I personally evaluated the patient and discussed the management with Dr. German I agree with the History, Examination, Assessment and Plan documented above with any addition or exceptions noted below. 44 yo diabetic intellectually challenged female patient recently dismissed from hospital with Influenza A ,DM, Hypothyroidism, pericardial effusion s/p pericardial window 07/09. Patient was dismissed to home she is cared for by Family and returns being given lantus 40 units bid with d/c instruction for 14 unit day. Patient readmiited with hypothermia,hypoglycemia and PNA on CXR. Patient with transaminitis Hepatitis screen negative at last admission. Patient need reconsideration of future placement , agree with resident management.
[2019-07-17] MEDS ORDERED: Levofloxacin 500 mg/D5W 100 ml Premix Bag ONE (18:57)
[2019-07-17] MEDS ORDERED: Acetaminophen 325 MG TAB PO PRN (19:04)
[2019-07-17] MEDS ORDERED: Dextrose 5% in Water 1,000 ML IV PRN (19:04)
[2019-07-17] MEDS ORDERED: Ondansetron PF 4 MG/2 ML Vial IVP PRN (19:04)
[2019-07-17] MEDS ORDERED: HumaLOG 300 UNITS/3 ML VIAL SC PRN (19:23)
[2019-07-17] MEDS ORDERED: Dextrose 5 %-0.45 % NaCl 1,000 ML IV SCH (21:30)
[2019-07-17 21:35] VITALS: BMI 32.8
[2019-07-17 22:23] LABS: Magnesium 1.4 mg/dL (1.6-2.6); Phosphorus 2.7 mg/dL (2.3-4.7)
[2019-07-17] MEDS ORDERED: guaiFENesin ER 600 MG TAB PO PRN (23:36)
[2019-07-17] MEDS ORDERED: Magnesium 2 GM/50 ML 2 GM in Premix Bag 1 BAG IVPB SCH (23:45)
[2019-07-17] MEDS: Atorvastatin Calcium 40 MG TAB PO SCH (23:49)
[2019-07-18] MEDS ORDERED: Dextrose 5 %-0.45 % NaCl 1,000 ML IV SCH ×2 (01:45→05:02)
[2019-07-18] MEDS: Levothyroxine 150 MCG TAB PO SCH (05:14)
[2019-07-18 05:33] LABS: #Lymphocytes 0.5 thou/uL (1.20-3.40); #Monocytes 0.3 thou/uL (0.11-0.59); #Neutrophils 6.3 thou/uL (1.40-6.50); %Basophils 0.3 % (0.0-1.0); %Eosinophils 0.6 % (0.0-10.0); %Lymphocytes 7.2 % (21.0-51.0); %Monocytes 3.5 % (0.0-10.0); %Neutrophils 88.4 % (42.0-75.0); Hemoglobin 9.6 g/dL (12.0-16.0); Mean Corpuscular HGB CONC 33.5 g/dL (32.0-36.0); Mean Corpuscular Hemoglobin 31.8 pg (27.0-31.0); Mean Platelet Volume 7.1 fL (7.4-10.4); Platelet Count 229 thou/uL (130-400); RBC Distribution Width 13.1 % (11.5-14.5); Red Blood Cell (RBC) Count 3.01 mill/uL (4.20-5.40); White Blood Cell (WBC) Count 7.1 thou/uL (4.8-10.8)
[2019-07-18 06:02] LABS: ALT (SGPT) 47 U/L (8-55); AST (SGOT) 29 U/L (5-34); Albumin 3.1 g/dL (3.5-5.0); Alkaline Phosphatase 117 U/L (40-110); Anion Gap 12 mmol/L (10-20); BUN (Urea Nitrogen) 32 mg/dL (7.0-18.7); Bilirubin, Total 0.4 mg/dL (0.2-1.2); Calc. Creatinine Clearance 98 mL/min (70-130); Calcium 7.7 mg/dL (7.8-10.44); Carbon Dioxide 24 mmol/L (22-29); Cardiac Risk 2.1 (Less than 4.5); Chloride 105 mmol/L (98-107); Cholesterol 75 mg/dl (< 200 Desired); Estimated GFR-MDRD 66; Globulin 2.6 g/dL (2.4-3.5); Glucose 193 mg/dL (70-105); HDL Cholesterol 35 mg/dL (>60 Neg Risk); LDL Cholesterol, Calculated 27 mg/dL; Potassium 3.4 mmol/L (3.5-5.1); Protein, Total 5.7 g/dL (6.0-8.3); Sodium 138 mmol/L (136-145); Triglycerides 67 mg/dL (Less than 150)
--- NOTE | 2019-07-18 07:09 | PDOC.FM ---
- Subjective Subjective: 44 yo F admitted yesterday for hypoglycemia. Since admission, glucose has gradually improved. BP has remained 80-100 systolic throughout admission. No other concerns from nursing. No complaints from pt. - Objective Vital Signs & Weight: Vital Signs (12 hours) Temp Pulse Ox 07/18/19 07:07 99.4 F 07/18/19 04:00 98.0 F 07/17/19 23:15 98.1 F 07/17/19 22:00 99 07/17/19 21:15 98.2 F Weight Weight 79.549 kg Most Recent Monitor Data Heart Rate from ECG 89 NIBP 95/58 NIBP BP-Mean 70 Respiration from ECG 21 SpO2 94 I&O: 07/17/19 07/18/19 07/19/19 07:59 06:59 06:59 Intake Total Output Total Balance Result Diagrams: 07/18/19 05:17 07/18/19 05:17 Phys Exam - Physical Examination Constitutional: NAD HEENT: PERRLA, moist MMs Neck: no nodes Respiratory: clear to auscultation bilateral Cardiovascular: RRR, no significant murmur Gastrointestinal: soft, non-tender Musculoskeletal: no edema Neurological: moves all 4 limbs Psychiatric: A&O x 3 Skin: no rash Dx/Plan (1) Hypotension Status: Acute (2) Hypoglycemia Code(s): E16.2 - HYPOGLYCEMIA, UNSPECIFIED Status: Acute (3) Bipolar 1 disorder Code(s): F31.9 - BIPOLAR DISORDER, UNSPECIFIED Status: Acute (4) Pneumonia Code(s): J18.9 - PNEUMONIA, UNSPECIFIED ORGANISM Status: Acute (5) Urinary tract infection Status: Acute (6) Diabetes type 2, uncontrolled Code(s): E11.65 - TYPE 2 DIABETES MELLITUS WITH HYPERGLYCEMIA Status: Chronic (7) Diastolic heart failure Code(s): I50.30 - UNSPECIFIED DIASTOLIC (CONGESTIVE) HEART FAILURE Status: Chronic Qualifiers: Heart failure chronicity: chronic Qualified Code(s): I50.32 - Chronic diastolic (congestive) heart failure (8) History of coronary artery disease Code(s): Z86.79 - PERSONAL HISTORY OF OTHER DISEASES OF THE CIRCULATORY SYSTEM Status: Chronic (9) Noncompliance with medication regimen Code(s): Z91.14 - PATIENT'S OTHER NONCOMPLIANCE WITH MEDICATION REGIMEN Status : Chronic - Plan Plan: 44 yo female w/ complex PMHx admitted for hypoglycemia Hypoglycemia, likely iatrogenic from improper insulin administration - glucose improved. It is unclear if she should be on 15 or 50 of lantus based on previous documentation. Will start at 15 this am. - Sliding scale humalog insulin, moderate Hypothermia, resolved Hospital acquired pneumonia versus persistent PNA from previous hospitalization - it is possible that this is contributing to hypotension and hypoglycemia. Will continue abx for now. Procal is trending upward. Type 2 Diabetes Mellitus, uncontrolled Hx of CAD -management as above - restart home emds Hypothyroidism - TSH is improving, it appears that she has been compliant since dc - Continue home dose of levothyroxine 150mcg in AM at 0600 Schizophrenia vs schizoaffective disorder - monitor closely - pt does not take any medications for this per chart review - case mgmt consulted for discharge planning as pt may require higher level of care at home Decreased mobility - uses walker, ordered PT/OT Hx of CHF w/ reduced EF HLD - continue atorvastatin - ECHO on last admission showed normal EF. Will continue to monitor. Pt is not on any heart failure medications. Code: FULL VTE PPx: lovenox Diet CC Dispo: Continue on IMCU for now until pressure firms up. Pt will need extensive DM counseling prior to dc. Addendum - Attending - Attending Attestation Date/Time: 07/18/19 1750 I personally evaluated the patient and discussed the management with Dr. Fam I agree with the History, Examination, Assessment and Plan documented above with any addition or exceptions noted below.
[2019-07-18] MEDS ORDERED: Insulin Glargine 15 UNITS in Pre-Filled Syringe 1 EACH SC SCH (09:00)
[2019-07-18] MEDS: Vancomycin HCl 1 GM in Premix Bag 1 BAG IVPB SCH ×3 (09:03→21:14)
[2019-07-18] MEDS: Enoxaparin Sodium 40 MG/0.4 ML SYRINGE SC SCH (09:04)
[2019-07-18] MEDS: Atorvastatin Calcium 40 MG TAB PO SCH (20:57)
[2019-07-18] MEDS: Vancomycin HCl 25 MG/ML Oral PO SCH (23:19)
[2019-07-19] MEDS: Sodium Chloride 0.9% 1,000 ML IV SCH ×2 (00:31→05:43)
[2019-07-19] MEDS: Dextrose 50% Abboject 50 ML SYRINGE SLOW IVP PRN ×2 (02:00→07:44)
[2019-07-19] MEDS: Levothyroxine 150 MCG TAB PO SCH (05:44)
[2019-07-19] MEDS: Vancomycin HCl 25 MG/ML Oral PO SCH ×3 (05:44→21:42)
[2019-07-19 05:54] LABS: #Eosinphils 0.1 thou/uL (0.0-0.7); #Monocytes 0.6 thou/uL (0.11-0.59); #Neutrophils 7.9 thou/uL (1.40-6.50); %Basophils 0.2 % (0.0-1.0); %Eosinophils 0.9 % (0.0-10.0); %Monocytes 6.7 % (0.0-10.0); %Neutrophils 82.1 % (42.0-75.0); Hemoglobin 9.5 g/dL (12.0-16.0); Mean Corpuscular HGB CONC 32.5 g/dL (32.0-36.0); Mean Corpuscular Hemoglobin 31.7 pg (27.0-31.0); Mean Corpuscular Volume 97.6 fL (78.0-98.0); Mean Platelet Volume 7.1 fL (7.4-10.4); Platelet Count 222 thou/uL (130-400); RBC Distribution Width 13.3 % (11.5-14.5); Red Blood Cell (RBC) Count 3.01 mill/uL (4.20-5.40); White Blood Cell (WBC) Count 9.6 thou/uL (4.8-10.8)
[2019-07-19 06:15] LABS: Anion Gap 12 mmol/L (10-20); BUN (Urea Nitrogen) 20 mg/dL (7.0-18.7); Calc. Creatinine Clearance 108 mL/min (70-130); Calcium 7.7 mg/dL (7.8-10.44); Carbon Dioxide 19 mmol/L (22-29); Chloride 111 mmol/L (98-107); Estimated GFR-MDRD 74; Potassium 3.4 mmol/L (3.5-5.1); Sodium 139 mmol/L (136-145)
[2019-07-19 06:22] LABS: Glucose 56 mg/dL (70-105)
--- NOTE | 2019-07-19 06:46 | PDOC.FM ---
- Subjective Subjective: Pt is still confused and will not give much information to myself or the nursing staff. Nursing reports a discrepancy upwards of 40mg/dL in bedside glucose vs venous sticks. - Objective MAR Reviewed: Yes Vital Signs & Weight: Vital Signs (12 hours) Temp 07/19/19 04:00 99.1 F 07/19/19 00:00 99.5 F 07/18/19 20:00 100 F H Weight Weight 79.549 kg Most Recent Monitor Data Heart Rate from ECG 90 NIBP 107/62 NIBP BP-Mean 77 Respiration from ECG 21 SpO2 94 I&O: 07/17/19 07/18/19 07/19/19 07:59 06:59 06:59 Intake Total Output Total Balance Result Diagrams: 07/19/19 05:41 07/19/19 06:38 Phys Exam - Physical Examination Constitutional: NAD (lethargic) HEENT: PERRLA dry mm Respiratory: no wheezing, clear to auscultation bilateral Cardiovascular: RRR, no significant murmur Gastrointestinal: soft, non-tender, no distention, positive bowel sounds Deviation from normal: Oriented to person and place Skin: no rash, normal turgor Dx/Plan (1) Hypoglycemia Code(s): E16.2 - HYPOGLYCEMIA, UNSPECIFIED Status: Acute (2) Hypotension Status: Acute (3) JESSICA (acute kidney injury) Code(s): N17.9 - ACUTE KIDNEY FAILURE, UNSPECIFIED Status: Acute (4) Diabetes type 2, uncontrolled Code(s): E11.65 - TYPE 2 DIABETES MELLITUS WITH HYPERGLYCEMIA Status: Chronic (5) Hypothyroidism Code(s): E03.9 - HYPOTHYROIDISM, UNSPECIFIED Status: Chronic - Plan Plan: Hypoglycemia -Continues to be an issue, may be a product of infection -Last admission, cortisol level was not convincing for adrenal insufficiency -Continue monitoring, holding insulin -Pt has required d50 and continues to have low glucose Hypothermia, resolved HAP vs persistent PNA -Currently on levaquin -Consider escalating Abx if pt does not improve -Procal does not suggest active PNA. C. difficile positive -Started on PO vancomycin -May be the cause of her hypotension IDDM 2 -Holding insulin for now. Pt is likely a fragile diabetic Hypothyroidism -Continue home levothyroxine 150 mcg Schizophrenia vs. schizoaffective -Not on home medications -This likely contributes to pt's noncompliance -Case management consulted for discharged planning as pt needs home health vs a [facility] but has refused in the past Decreased mobility -PT/OT Hx of HFrEF -Echo on this admission shows normal EF and trivial pericardial effusion
[2019-07-19 07:11] LABS: Glucose 49 mg/dL (70-105)
[2019-07-19] MEDS ORDERED: Insulin Glargine 10 UNITS in Pre-Filled Syringe 1 EACH SC SCH (09:00)
[2019-07-19] MEDS: Potassium Chloride 20 MEQ TAB PO SCH ×2 (10:00→15:53)
[2019-07-19] MEDS: Dextrose 5 %-0.45 % NaCl 1,000 ML IV SCH ×2 (10:03→15:53)
[2019-07-19] MEDS: Enoxaparin Sodium 40 MG/0.4 ML SYRINGE SC SCH (10:03)
--- NOTE | 2019-07-19 14:42 | PRG ---
DATE OF SERVICE: 07/19/2019 I have reviewed the note of Dr. Roberto Dash and agree with his assessment and plan. Ms. Green was admitted with several dosages of hypoglycemia. Interestingly, she has hypothyroidism and had not been taking her Synthroid. Her TSH was significantly elevated. Despite this, she was given the same dose of Lantus insulin and I suspect that this was the cause of her recurrent hypoglycemia. She has been restarted on her Synthroid and her TSH is at least approaching normalcy. We will continue to monitor as this problem will likely resolve when her blood levels are euthyroid. Job ID: [id number]
[2019-07-19] MEDS: Atorvastatin Calcium 40 MG TAB PO SCH (21:42)
[2019-07-20] MEDS: Dextrose 5 %-0.45 % NaCl 1,000 ML IV SCH ×4 (00:15→21:31)
[2019-07-20] MEDS: Vancomycin HCl 25 MG/ML Oral PO SCH ×5 (00:15→23:57)
[2019-07-20] MEDS: Levothyroxine 150 MCG TAB PO SCH (06:07)
--- NOTE | 2019-07-20 06:18 | PDOC.FM ---
- Subjective Subjective: Pt has no complaints at this time. Nursing reports she has not eaten much in the last 24 hr. - Objective MAR Reviewed: Yes Vital Signs & Weight: Vital Signs (12 hours) Temp 07/20/19 03:20 98.9 F 07/19/19 23:26 98.4 F 07/19/19 19:29 98.4 F Weight Weight 79.549 kg Most Recent Monitor Data Heart Rate from ECG 82 NIBP 130/82 NIBP BP-Mean 98 Respiration from ECG 18 SpO2 98 I&O: 07/18/19 07/19/19 07/20/19 06:59 06:59 06:59 Intake Total 700 3450 Output Total 800 850 Balance -100 2600 Result Diagrams: 07/19/19 05:41 07/19/19 06:38 Phys Exam - Physical Examination Constitutional: NAD (lethargic) dry mm Neck: no JVD Respiratory: no wheezing, clear to auscultation bilateral Cardiovascular: RRR, no significant murmur Gastrointestinal: soft, non-tender, no distention, positive bowel sounds Musculoskeletal: pulses present, edema present Neurological: moves all 4 limbs Psychiatric: A&O x 3 Skin: cap refill <2 seconds Deviation from normal: eryathema around toes and toe nails Dx/Plan (1) Hypoglycemia Code(s): E16.2 - HYPOGLYCEMIA, UNSPECIFIED Status: Acute (2) Hypotension Status: Acute (3) JESSICA (acute kidney injury) Code(s): N17.9 - ACUTE KIDNEY FAILURE, UNSPECIFIED Status: Acute (4) Diabetes type 2, uncontrolled Code(s): E11.65 - TYPE 2 DIABETES MELLITUS WITH HYPERGLYCEMIA Status: Chronic (5) Hypothyroidism Code(s): E03.9 - HYPOTHYROIDISM, UNSPECIFIED Status: Chronic - Plan Plan: Hypoglycemia -Continues to be an issue, may be a product of infection -Last admission, cortisol level was not convincing for adrenal insufficiency -Continue monitoring, holding insulin -Pt has been on D5w 1/2 NS over night, repeating BMP, will see today if she needs the fluids still Hypothermia, resolved HAP vs persistent PNA -Currently on levaquin -Consider escalating Abx if pt does not improve -Procal does not suggest active PNA. C. difficile positive -Started on PO vancomycin -May be the cause of her hypotension IDDM 2 -Holding insulin for now. Pt is likely a fragile diabetic -Goal of discharge would be stable glucose and insulin regimen Hypothyroidism -Continue home levothyroxine 150 mcg -Pending TSH Schizophrenia vs. schizoaffective -Not on home medications -This likely contributes to pt's noncompliance -Case management consulted for discharged planning as pt needs home health vs a longterm but has refused in the past Decreased mobility -PT/OT Hx of HFrEF -Echo on this admission shows normal EF and trivial pericardial effusion
[2019-07-20 09:26] LABS: Hemoglobin 9.1 g/dL (12.0-16.0); Mean Corpuscular HGB CONC 33.9 g/dL (32.0-36.0); Mean Corpuscular Volume 94.3 fL (78.0-98.0); Mean Platelet Volume 6.8 fL (7.4-10.4); Platelet Count 237 thou/uL (130-400); RBC Distribution Width 13.1 % (11.5-14.5); Red Blood Cell (RBC) Count 2.85 mill/uL (4.20-5.40); White Blood Cell (WBC) Count 9.7 thou/uL (4.8-10.8)
[2019-07-20] MEDS: Enoxaparin Sodium 40 MG/0.4 ML SYRINGE SC SCH (09:32)
[2019-07-20] MEDS: Potassium Chloride 20 MEQ TAB PO SCH ×2 (09:32→17:34)
[2019-07-20 10:12] LABS: Anion Gap 9 mmol/L (10-20); BUN (Urea Nitrogen) 14 mg/dL (7.0-18.7); Calc. Creatinine Clearance 120 mL/min (70-130); Carbon Dioxide 23 mmol/L (22-29); Chloride 110 mmol/L (98-107); Estimated GFR-MDRD 83; Glucose 152 mg/dL (70-105); Sodium 139 mmol/L (136-145)
--- NOTE | 2019-07-20 10:44 | PRG ---
DATE OF SERVICE: 07/20/2019 Ms. Green is resting quietly in bed, in no distress. She is afebrile with blood pressure 112/76. Her O2 saturation is 97%. Her glucose levels have leveled off nicely from between 140 to 155. We will continue to give her Synthroid, closely monitoring her glucose levels after which she can likely be discharged. We will need to also have a long discussion with the family about the appropriate way of administering her medications. Job ID: [id number]
[2019-07-20] MEDS: HumaLOG 300 UNITS/3 ML VIAL SC PRN (17:39)
[2019-07-20] MEDS: Atorvastatin Calcium 40 MG TAB PO SCH (21:30)
[2019-07-21] MEDS: Levothyroxine 150 MCG TAB PO SCH (05:16)
[2019-07-21] MEDS: Vancomycin HCl 25 MG/ML Oral PO SCH ×3 (05:16→17:39)
--- NOTE | 2019-07-21 06:34 | PDOC.FM ---
- Subjective Subjective: Pt states she is feeling better today. She denies any pain but reports eating more. - Objective MAR Reviewed: Yes Vital Signs & Weight: Vital Signs (12 hours) Temp Pulse Resp BP Pulse Ox 07/21/19 06:26 96 07/20/19 20:00 97.9 F 90 18 144/89 H 96 Weight Weight 79.549 kg Most Recent Monitor Data Heart Rate from ECG 81 NIBP 121/82 NIBP BP-Mean 95 Respiration from ECG 15 SpO2 98 I&O: 07/19/19 07/20/19 07/21/19 06:59 06:59 06:59 Intake Total 700 5050 Output Total 800 1900 Balance -100 3150 Result Diagrams: 07/21/19 06:53 07/21/19 06:53 Phys Exam - Physical Examination Constitutional: NAD (lethargic) HEENT: moist MMs Neck: no JVD coarse lung sounds Cardiovascular: RRR, no significant murmur Gastrointestinal: soft, non-tender, no distention, positive bowel sounds Musculoskeletal: no edema, pulses present Neurological: moves all 4 limbs Deviation from normal: slow responses Skin: cap refill <2 seconds Dx/Plan (1) Hypoglycemia Code(s): E16.2 - HYPOGLYCEMIA, UNSPECIFIED Status: Acute (2) Hypotension Status: Acute (3) JESSICA (acute kidney injury) Code(s): N17.9 - ACUTE KIDNEY FAILURE, UNSPECIFIED Status: Acute (4) Diabetes type 2, uncontrolled Code(s): E11.65 - TYPE 2 DIABETES MELLITUS WITH HYPERGLYCEMIA Status: Chronic (5) Hypothyroidism Code(s): E03.9 - HYPOTHYROIDISM, UNSPECIFIED Status: Chronic - Plan Plan: Hypoglycemia -Finally appear to be ahead of the hypoglycemia, stopping D5W -Will see if she tolerates PO intake and will begin starting her on anti- diabetic therapy -Last admission, cortisol level was not convincing for adrenal insufficiency -Continue monitoring, holding insulin Hypotension, resolved -BP is firming up, would consider low dose of lisinopril if it remains elevated Hypothermia, resolved HAP vs persistent PNA -Currently on levaquin -Consider escalating Abx if pt does not improve -Procal does not suggest active PNA. C. difficile positive -Started on PO vancomycin -May be the cause of her hypotension IDDM 2 -Holding insulin for now. Pt is likely a fragile diabetic -Goal of discharge would be stable glucose and insulin regimen Hypothyroidism -Continue home levothyroxine 150 mcg Schizophrenia vs. schizoaffective -Not on home medications -This likely contributes to pt's noncompliance -Case management consulted for discharged planning as pt needs home health vs a halfway but has refused in the past Decreased mobility -PT/OT Hx of HFrEF -Echo on this admission shows normal EF and trivial pericardial effusion Erytema around toes -Javed bowers, consider outpt podiatry consult for evaluation
[2019-07-21] MEDS: HumaLOG 300 UNITS/3 ML VIAL SC PRN ×3 (06:37→17:39)
[2019-07-21 07:03] LABS: Hemoglobin 9.6 g/dL (12.0-16.0); Mean Corpuscular HGB CONC 33.8 g/dL (32.0-36.0); Mean Corpuscular Hemoglobin 31.9 pg (27.0-31.0); Mean Corpuscular Volume 94.3 fL (78.0-98.0); Mean Platelet Volume 7.1 fL (7.4-10.4); Platelet Count 247 thou/uL (130-400); Red Blood Cell (RBC) Count 3.02 mill/uL (4.20-5.40); White Blood Cell (WBC) Count 8.1 thou/uL (4.8-10.8)
[2019-07-21 07:23] LABS: ALT (SGPT) 96 U/L (8-55); AST (SGOT) 58 U/L (5-34); Albumin 2.9 g/dL (3.5-5.0); Alkaline Phosphatase 126 U/L (40-110); Anion Gap 12 mmol/L (10-20); BUN (Urea Nitrogen) 14 mg/dL (7.0-18.7); Bilirubin, Total 0.4 mg/dL (0.2-1.2); Calc. Creatinine Clearance 117 mL/min (70-130); Calcium 8.1 mg/dL (7.8-10.44); Carbon Dioxide 21 mmol/L (22-29); Chloride 108 mmol/L (98-107); Estimated GFR-MDRD 81; Globulin 2.7 g/dL (2.4-3.5); Glucose 237 mg/dL (70-105); Potassium 3.8 mmol/L (3.5-5.1); Protein, Total 5.6 g/dL (6.0-8.3); Sodium 137 mmol/L (136-145)
[2019-07-21] MEDS: Potassium Chloride 20 MEQ TAB PO SCH ×2 (09:28→17:39)
[2019-07-21] MEDS: Enoxaparin Sodium 40 MG/0.4 ML SYRINGE SC SCH (09:28)
[2019-07-21] MEDS: Lisinopril 5 MG TAB PO SCH (09:28)
--- NOTE | 2019-07-21 10:52 | PRG ---
DATE OF SERVICE: 07/21/2019 Ms. Green's blood glucose levels are now back above 100. We are reinstituting very gradually her insulin regimen. She will likely be ready for discharge in a day or 2. We have encouraged her to please get out of bed and walk around as every time I see her she is lying in the bed. She will be deconditioned as a result. Job ID: [id number]
[2019-07-21] MEDS: Atorvastatin Calcium 40 MG TAB PO SCH (20:14)
[2019-07-22] MEDS: Vancomycin HCl 25 MG/ML Oral PO SCH ×5 (00:01→23:37)
[2019-07-22] MEDS: Levothyroxine 150 MCG TAB PO SCH (05:12)
--- NOTE | 2019-07-22 06:52 | PDOC.FM ---
- Subjective Subjective: Pt states she has no complaints this morning. She states she had some trouble breathing overnight. This happens at times but was worse overnight. She reports she has not worked with physical therapy because she does not need it and the rectal tube is bothering her. She says she is ready to go home. - Objective MAR Reviewed: Yes Vital Signs & Weight: Vital Signs (12 hours) Temp Pulse Resp BP Pulse Ox 07/21/19 20:00 99.1 F 86 20 137/93 H 96 Weight Weight 79.549 kg Most Recent Monitor Data Heart Rate from ECG 81 NIBP 121/82 NIBP BP-Mean 95 Respiration from ECG 15 SpO2 98 I&O: 07/20/19 07/21/19 07/22/19 06:59 06:59 06:59 Intake Total 5050 480 Output Total 1900 1999 Balance 3150 -1520 Result Diagrams: 07/21/19 06:53 07/21/19 06:53 Phys Exam - Physical Examination Constitutional: NAD Dry mm Neck: no JVD rhonchi, good air movement Cardiovascular: RRR, no significant murmur Gastrointestinal: soft, non-tender, no distention, positive bowel sounds Musculoskeletal: pulses present, edema present Neurological: moves all 4 limbs Psychiatric: A&O x 3 Deviation from normal: Slow responses Skin: cap refill <2 seconds Dx/Plan (1) Hypoglycemia Code(s): E16.2 - HYPOGLYCEMIA, UNSPECIFIED Status: Acute (2) Hypotension Status: Acute (3) JESSICA (acute kidney injury) Code(s): N17.9 - ACUTE KIDNEY FAILURE, UNSPECIFIED Status: Acute (4) Diabetes type 2, uncontrolled Code(s): E11.65 - TYPE 2 DIABETES MELLITUS WITH HYPERGLYCEMIA Status: Chronic (5) Hypothyroidism Code(s): E03.9 - HYPOTHYROIDISM, UNSPECIFIED Status: Chronic - Plan Plan: HAP vs persistent PNA -Stopping Abx after 5 day course -Procal does not suggest active PNA. C. difficile positive -Started on PO vancomycin (07/18) -May be the cause of her hypotension IDDM 2 -Goal of discharge would be stable glucose and insulin regimen -Starting back long acting insulin Hypothyroidism -Continue home levothyroxine 150 mcg Schizophrenia vs. schizoaffective -Not on home medications -This likely contributes to pt's noncompliance -Case management consulted for discharged planning as pt needs home health vs a residential but has refused in the past Decreased mobility -PT/OT -D/c rectal tube -Assess for need of PT outpt Hx of HFrEF -Echo on this admission shows normal EF and trivial pericardial effusion Erytema around toes -Will robinson, consider outpt podiatry consult for evaluation Hypoglycemia, resolved -Will see if she tolerates PO intake and will begin starting her on anti- diabetic therapy -Last admission, cortisol level was not convincing for adrenal insufficiency Hypotension, resolved -BP is firming up, would consider low dose of lisinopril if it remains elevated Hypothermia, resolved
[2019-07-22] MEDS ORDERED: Insulin Glargine 5 UNITS in Pre-Filled Syringe 1 EACH SC SCH (09:00)
[2019-07-22] MEDS: Enoxaparin Sodium 40 MG/0.4 ML SYRINGE SC SCH (09:50)
[2019-07-22] MEDS: Potassium Chloride 20 MEQ TAB PO SCH ×2 (09:50→17:28)
[2019-07-22] MEDS: Lisinopril 5 MG TAB PO SCH (09:51)
--- NOTE | 2019-07-22 11:36 | PRG ---
DATE OF SERVICE: 07/22/2019 Ms. Green offers no new complaints this morning. She is anxious to go home and verbalizes this. I really believe that Ms. Green does not appreciate the seriousness of her many maladies and will remain noncompliant. She will likely return to the hospital again in the not to near future. In the event, we are adjusting her insulin in anticipation of discharging her in a day or 2. Recent labs show some elevations of her LFTs, and I would recommend a right upper quadrant ultrasound as well as hepatitis screen if these have not already been done. This could all be arranged to be done as an outpatient. Job ID: [id number]
[2019-07-22] MEDS: HumaLOG 300 UNITS/3 ML VIAL SC PRN ×2 (13:52→17:29)
[2019-07-22 13:55] LABS: HBSAB Concentration 2.36 mIU/mL; Hep B Surf AB Non-Reactive (NonReactive); Hep B Surf Ag Non-Reactive S/CO (NonReactive); Hep C IgG Ab Non-Reactive (NonReactive); Hep C Index 0.06 S/CO (0-0.79)
[2019-07-22] MEDS: Atorvastatin Calcium 40 MG TAB PO SCH (19:14)
[2019-07-23] MEDS: Levothyroxine 150 MCG TAB PO SCH (04:26)
[2019-07-23] MEDS: Vancomycin HCl 25 MG/ML Oral PO SCH ×4 (04:26→23:26)
[2019-07-23] MEDS: HumaLOG 300 UNITS/3 ML VIAL SC PRN ×3 (04:26→17:07)
--- NOTE | 2019-07-23 06:30 | PDOC.FM ---
- Subjective Subjective: Pt has no complaints this morning. Nursing states she did fair overnight. She states she just wants to go home. - Objective MAR Reviewed: Yes Vital Signs & Weight: Vital Signs (12 hours) Temp Pulse Resp BP Pulse Ox 07/22/19 20:00 98.0 F 89 18 137/89 100 Weight Weight 79.549 kg Most Recent Monitor Data Heart Rate from ECG 81 NIBP 121/82 NIBP BP-Mean 95 Respiration from ECG 15 SpO2 98 I&O: 07/21/19 07/22/19 07/23/19 06:59 06:59 06:59 Intake Total 480 Output Total 1999 Balance -1520 Result Diagrams: 07/21/19 06:53 07/21/19 06:53 Phys Exam - Physical Examination Constitutional: NAD Dry mm Neck: no JVD Respiratory: no wheezing Crackles consistent with atelectasis Cardiovascular: RRR, no significant murmur Gastrointestinal: soft, non-tender, no distention, positive bowel sounds Musculoskeletal: pulses present, edema present (improving) Neurological: moves all 4 limbs Deviation from normal: Has little understanding of her conditions Skin: cap refill <2 seconds Dx/Plan (1) Hypoglycemia Code(s): E16.2 - HYPOGLYCEMIA, UNSPECIFIED Status: Acute (2) Hypotension Status: Acute (3) JESSICA (acute kidney injury) Code(s): N17.9 - ACUTE KIDNEY FAILURE, UNSPECIFIED Status: Acute (4) Diabetes type 2, uncontrolled Code(s): E11.65 - TYPE 2 DIABETES MELLITUS WITH HYPERGLYCEMIA Status: Chronic (5) Hypothyroidism Code(s): E03.9 - HYPOTHYROIDISM, UNSPECIFIED Status: Chronic - Plan Plan: HAP vs persistent PNA -Stopping Abx after 5 day course -Procal does not suggest active PNA. C. difficile positive -Started on PO vancomycin (07/18) -May be the cause of her hypotension IDDM 2 -Goal of discharge would be stable glucose and insulin regimen -Starting back long acting insulin Hypothyroidism -Continue home levothyroxine 150 mcg Schizophrenia vs. schizoaffective -Not on home medications -This likely contributes to pt's noncompliance -Case management consulted for discharged planning as pt needs home health vs a long term but has refused in the past Decreased mobility -PT/OT -D/c rectal tube -Assess for need of PT outpt Hx of HFrEF -Echo on this admission shows normal EF and trivial pericardial effusion Erytema around toes -Will robinson, consider outpt podiatry consult for evaluation Hypoglycemia, resolved -Will see if she tolerates PO intake and will begin starting her on anti- diabetic therapy -Last admission, cortisol level was not convincing for adrenal insufficiency Hypotension, resolved -BP is firming up, would consider low dose of lisinopril if it remains elevated Hypothermia, resolved
--- NOTE | 2019-07-23 08:03 | ULT ---
RIGHT UPPER QUADRANT ULTRASOUND: Date: 07/23/19 HISTORY: Transaminitis. FINDINGS: Somewhat coarse liver echogenicity, possibly mild nonspecific hepatic parenchymal process. Status pos t cholecystectomy. Common bile duct 0.3 cm. There is a tiny amount of fluid adjacent to the right jacquie al perinephric region, nonspecific. No renal hydronephrosis. Visualized pancreas is unremarkable. No focal liver masses. IMPRESSION: 1. Status post cholecystectomy. 2. Slightly coarse nonspecific liver echogenicity. 3. Very tiny fluid density focus adjacent to the right kidney, nonspecific. POS: TPC
[2019-07-23] MEDS: Potassium Chloride 20 MEQ TAB PO SCH ×2 (08:11→17:04)
[2019-07-23] MEDS: Lisinopril 5 MG TAB PO SCH (08:11)
[2019-07-23] MEDS: Enoxaparin Sodium 40 MG/0.4 ML SYRINGE SC SCH (08:12)
[2019-07-23] MEDS: Insulin Glargine 10 UNITS in Pre-Filled Syringe SC SCH (09:30)
--- NOTE | 2019-07-23 10:36 | PRG ---
DATE OF SERVICE: 07/23/2019 Ms. Green is much more cheerful and alert this morning. She will likely be discharged home later today. It is absolutely essential that we get her a good home health care to ensure that she takes her medications appropriately. I believe that many of her maladies of the last several weeks are related to the fact that she has obviously not been taking her thyroid medication. This in turn has had very negative impacts on her diabetic control or lack thereof. Therefore, it is essential that Home Health visits her to adjust medications and to ensure that she is taking them appropriately. Job ID: [id number]
[2019-07-23] MEDS: Atorvastatin Calcium 40 MG TAB PO SCH (20:04)
[2019-07-24] MEDS: HumaLOG 300 UNITS/3 ML VIAL SC PRN (05:48)
[2019-07-24] MEDS: Levothyroxine 150 MCG TAB PO SCH (05:48)
[2019-07-24] MEDS: Vancomycin HCl 25 MG/ML Oral PO SCH (05:48)
[2019-07-24 07:04] VITALS: BP 129/88; TEMP 97.8
--- NOTE | 2019-07-24 07:24 | PDOC.FM ---
- Subjective Subjective: No acute events overnight. Pt reports she is doing well. No NVDC, no cp sob. - Objective Vital Signs & Weight: Vital Signs (12 hours) Temp Pulse Resp BP Pulse Ox 07/24/19 06:57 97.8 F 88 18 129/88 92 L 07/23/19 20:10 99 Weight Weight 79.549 kg Most Recent Monitor Data Heart Rate from ECG 81 NIBP 121/82 NIBP BP-Mean 95 Respiration from ECG 15 SpO2 98 Result Diagrams: 07/21/19 06:53 07/21/19 06:53 Phys Exam - Physical Examination Constitutional: NAD HEENT: PERRLA, moist MMs Neck: no JVD Respiratory: no wheezing, no rales, no rhonchi, clear to auscultation bilateral Cardiovascular: RRR, no significant murmur, no rub Gastrointestinal: soft, non-tender, no distention, positive bowel sounds Musculoskeletal: no edema, pulses present Neurological: normal sensation, moves all 4 limbs Skin: cap refill <2 seconds Dx/Plan (1) Hypoglycemia Code(s): E16.2 - HYPOGLYCEMIA, UNSPECIFIED Status: Acute (2) JESSICA (acute kidney injury) Code(s): N17.9 - ACUTE KIDNEY FAILURE, UNSPECIFIED Status: Acute (3) Adult myxedema Code(s): E03.9 - HYPOTHYROIDISM, UNSPECIFIED Status: Acute (4) Bipolar 1 disorder Code(s): F31.9 - BIPOLAR DISORDER, UNSPECIFIED Status: Acute (5) Schizophrenia Code(s): F20.9 - SCHIZOPHRENIA, UNSPECIFIED Status: Acute (6) Congestive heart failure with left ventricular diastolic dysfunction Code(s): I50.30 - UNSPECIFIED DIASTOLIC (CONGESTIVE) HEART FAILURE Status: Chronic Qualifiers: Congestive heart failure chronicity: chronic Qualified Code(s): I50.32 - Chronic diastolic (congestive) heart failure (7) Diabetes type 2, uncontrolled Code(s): E11.65 - TYPE 2 DIABETES MELLITUS WITH HYPERGLYCEMIA Status: Chronic - Plan Plan: HAP vs persistent PNA -complete 5 day course abx and dc C. difficile positive -Started on PO vancomycin (07/18) -May be the cause of her hypotension - cont PO vanc, ok for DC IDDM 2 -Goal of discharge would be stable glucose and insulin regimen -Starting back long acting insulin - SSI and long acting insulin, will need OP titration Hypothyroidism -Continue home levothyroxine 150 mcg, improving Schizophrenia vs. schizoaffective -Not on home medications -This likely contributes to pt's noncompliance -Case management consulted for discharged planning as pt needs home health vs a jail but has refused in the past - CM workin on HH placement, thus far denied. Hx of HFrEF -Echo on this admission shows normal EF and trivial pericardial effusion Dispo: Stable. Pts hospitalization preventable with medication compliance. Will consider dc to home. CM actively working on HH placement. This can be followed up with when pt is at home. Addendum - Attending - Attending Attestation Date/Time: 07/24/19 0415 I personally evaluated the patient and discussed the management with Dr. Marin. I agree with the History, Examination, Assessment and Plan documented above with any addition or exceptions noted below. The patient wants to go home. She states she will take her meds. she has been denied for home health. Stable for d/c. Stressed the need for close outpt follow-up.
[2019-07-24] MEDS: Lisinopril 5 MG TAB PO SCH (08:08)
[2019-07-24] MEDS: Potassium Chloride 20 MEQ TAB PO SCH (08:08)
[2019-07-24] MEDS: Enoxaparin Sodium 40 MG/0.4 ML SYRINGE SC SCH (08:09)
[2019-07-24] MEDS: Insulin Glargine 10 UNITS in Pre-Filled Syringe SC SCH (08:44)
--- NOTE | 2019-07-26 12:48 | DIS ---
DATE OF ADMISSION: 07/17/2019 DATE OF DISCHARGE: 07/24/2019 ADMITTING ATTENDING: Chapin Roblero MD DISCHARGE ATTENDING: Jenny Barger MD RESIDENT: Roberto Dash DO PROCEDURES PERFORMED: 1. Abdominal ultrasound on 04/25/2019 showing status post cholecystectomy, slightly coarse nonspecific liver echogenicity, tiny fluid density focus adjacent on the right kidney, nonspecific. 2. Chest x-ray, portable, increasing infiltration lung changes to the right upper lobe. Also suggestion of some slight increase to changes within the lingual. 3. Echocardiogram showing EF of 50% to 55% with trivial pericardial effusion. PRIMARY DIAGNOSES: Hypoglycemia likely iatrogenic from improper insulin administration, hypothermia, persistent pneumonia from previous hospitalization, uncontrolled type 2 diabetes, coronary artery disease, hypothyroidism, schizophrenia, decreased mobility, history of congestive heart failure with reduced ejection fraction. DISCHARGE MEDICATIONS: 1. Lantus 10 units q.a.m. 2. Lisinopril 5 mg p.o. daily. 3. Vancomycin 125 mg p.o. q.6 hours for 4 days. DISCONTINUED MEDICATIONS: Levemir daily. BRIEF HISTORY OF PRESENT ILLNESS/HOSPITAL COURSE: This is a 44-year-old female, well known to our service, who presents with hypoglycemic episode. Cousin states that she was given 50 units of Lantus. Cousin was monitoring sugars and giving 50 units of Lantus b.i.d. The patient had low blood sugar into the 40s and did not know what to do, so the patient was brought here. While in the hospital, the patient had multiple comorbidities. 1. Persistent pneumonia which was initially treated with IV vancomycin and Levaquin. However, patient was switched to Levaquin. 2. Hypoglycemia. Insulin was stopped, however, patient remained hypoglycemic and required two amps of D50 and 2 mg of glucagon. 3. Patient was tested positive for C diff and was started on p.o. vancomycin 07/18. This may have been contributing to her poor vital sign status. While patient was in the hospital, I called medical power of [employer] science healer, Jacque Byrne, and discussed patient's noncompliance and history of difficulty treating her comorbidities. Her sister agree that has been difficult, however, patient is decisional currently and can choose what she would like to do. Sister understands this and agrees that home health is the most in line with patient's wishes at this time to help manage her comorbidities. The patient is also levothyroxine 150 mg mcg p.o. daily. We will continue finding home health while patient is in the outpatient setting. However, patient will be discharged under the care of her cousin or other family members of the property she lives on. DISPOSITION: Stable. DISCHARGE INSTRUCTIONS: 1. Location: Home. 2. Diet: Diabetic, heart healthy. 3. Activity: As tolerated. 4. Followup: Follow up with PCP . Job ID: [id number]
== END 2019-07-24 11:23 | disposition home health service (06) | DRG 637 ==
LOC: ERS 15:57 → IMCU/EMU 21:10 → OBSVTOIN 21:10 → T4-A 07-20 14:36
PROVIDERS: ADMIT Family Medicine; ATTEND Family Medicine
DX: E11.649 Type 2 diabetes mellitus with hypoglycemia without coma (principal); J18.9 Pneumonia, unspecified organism; I50.32 Chronic diastolic (congestive) heart failure; N39.0 Urinary tract infection, site not specified; I42.9 Cardiomyopathy, unspecified; A04.72 Enterocolitis due to Clostridium difficile, not specified as recurrent; R40.2122 Coma scale, eyes open, to pain, at arrival to emergency department; R40.2352 Coma scale, best motor response, localizes pain, at arrival to emergency department; R40.2212 Coma scale, best verbal response, none, at arrival to emergency department; Z88.0 Allergy status to penicillin; Z91.018 Allergy to other foods; Z88.2 Allergy status to sulfonamides; I25.10 Atherosclerotic heart disease of native coronary artery without angina pectoris; F20.9 Schizophrenia, unspecified; F17.210 Nicotine dependence, cigarettes, uncomplicated; T68.XXXA Hypothermia, initial encounter; E03.9 Hypothyroidism, unspecified; T38.3X5A Adverse effect of insulin and oral hypoglycemic [antidiabetic] drugs, initial encounter; B96.89 Other specified bacterial agents as the cause of diseases classified elsewhere; F31.9 Bipolar disorder, unspecified; Z91.14 Patient's other noncompliance with medication regimen; Z79.4 Long term (current) use of insulin; I95.9 Hypotension, unspecified; H91.93 Unspecified hearing loss, bilateral; I25.2 Old myocardial infarction; N17.9 Acute kidney failure, unspecified; L53.9 Erythematous condition, unspecified
CPT/HCPCS: 36415; 36416; 71045; 76705; 80048; 80053; 80061; 83036; 83605; 83735; 84100; 84145; 84439; 84443; 85025; 85027; 86706; 86803; 87040; 87324; 87340; 87449; 87493; 93005; 93306; 94640; 96361; 96365; 96375; J1610; J1650; J1815; J1956; J3370; J3475; J7042; J7620

== ENCOUNTER 2019-09-27 11:55 | Emergency (ER) | payer OTHER | END 2019-09-27 13:15 | disposition home or self-care (01) | LOC: ERS 11:55 | DX: L02.214 Cutaneous abscess of groin (principal); E11.9 Type 2 diabetes mellitus without complications; I50.9 Heart failure, unspecified; I25.2 Old myocardial infarction; E78.5 Hyperlipidemia, unspecified; E78.00 Pure hypercholesterolemia, unspecified; J45.909 Unspecified asthma, uncomplicated; F31.9 Bipolar disorder, unspecified; F20.9 Schizophrenia, unspecified; F17.210 Nicotine dependence, cigarettes, uncomplicated; E03.9 Hypothyroidism, unspecified ==

== ENCOUNTER 2019-09-27 19:07 | Inpatient (IN) | payer OTHER ==
[2019-09-27] MEDS ORDERED: cefTRIAXone\\ROCEPHIN 2 GM VIAL ONE (19:39)
[2019-09-27 19:52] LABS: Bacteria/HPF 4+ HPF (None Seen); Bilirubin Negative (Negative); Blood, Urine Trace (Negative); Clarity Turbid (Clear); Glucose, Urine (Dipstick) Greater than 1000 mg/dL (Negative); Leukocyte 500 Leu/uL (Negative); Nitrite Negative (Negative); Protein, Urine (Dipstick) 20 mg/dL (Neg-Trace); RBC/HPF 0-3 HPF (0-3); Squamous Epithelial 0-3 HPF (0-3); Urobilinogen Normal mg/dL (Less than 2)
[2019-09-27 19:54] LABS: Base Excess-Venous -1.8 mmol/L (-2.0 to 3.0); CO2 Tension (PvCO2) 38.4 mmHg (40.0-50.0); Calcium, Ionized 1.08 mmol/L (See Comments:); Chloride 100 mmol/L (98-107); Hemoglobin - Calc 13.5 g/dL (12.0-16.0); Potassium 4.1 mmol/L (3.5-5.1); Sodium 134 mmol/L (138-145); T. Carbon Dioxide 24.2 mmol/L (22.0-28.0); vO2 Saturation-calc 38.1 % (60.0-85.0)
[2019-09-27 19:55] LABS: Hemoglobin 13.1 g/dL (12.0-16.0); Mean Corpuscular HGB CONC 33.3 g/dL (32.0-36.0); Mean Corpuscular Hemoglobin 28.4 pg (27.0-31.0); Mean Corpuscular Volume 85.3 fL (78.0-98.0); Mean Platelet Volume 7.9 fL (7.4-10.4); Platelet Count 336 thou/uL (130-400); RBC Distribution Width 13.4 % (11.5-14.5); White Blood Cell (WBC) Count 22.1 thou/uL (4.8-10.8)
[2019-09-27 19:57] LABS: Amphetamine Not Detected (NotDetected); Barbiturates Screen Not Detected (NotDetected); Benzodiazepine Screen Not Detected (NotDetected); Cocaine Metabolite Screen Not Detected (NotDetected); Medtox Reader # READER 4; Methadone Not Detected (NotDetected); Methamphetamine Not Detected (NotDetected); Opiate Screen Not Detected (NotDetected); Oxycodone Screen Not Detected (NotDetected); Phencyclidine (PCP) Not Detected (NotDetected); THC/Cannabinoid Screen Not Detected (NotDetected); Tricyclic Screen Not Detected (NotDetected)
[2019-09-27 19:58] LABS: Medtox Control Line Valid? VALID (VALID)
[2019-09-27 20:07] LABS: Acetaminophen Less than 6.0 mcg/mL (10.0-30.0); Alcohol Less than 10 mg/dL (Less than 10); Salicylate Less than 8.0 mg/dL (15.0-30.0)
[2019-09-27 20:08] LABS: ALT (SGPT) 18 U/L (8-55); AST (SGOT) 25 U/L (5-34); Albumin 3.5 g/dL (3.5-5.0); Alkaline Phosphatase 174 U/L (40-110); Anion Gap 16 mmol/L (10-20); BUN (Urea Nitrogen) 25 mg/dL (7.0-18.7); Bilirubin, Total 0.5 mg/dL (0.2-1.2); Calc. Creatinine Clearance 0 mL/min (70-130); Calcium 9.5 mg/dL (7.8-10.44); Carbon Dioxide 23 mmol/L (22-29); Chloride 98 mmol/L (98-107); Estimated GFR-MDRD 35; Globulin 3.7 g/dL (2.4-3.5); Glucose 446 mg/dL (70-105); Potassium 4.2 mmol/L (3.5-5.1); Protein, Total 7.2 g/dL (6.0-8.3); Sodium 133 mmol/L (136-145)
[2019-09-27 20:25] LABS: Band 44 % (5-11); Lymphocytes 8 % (21-51); MDiff Complete? YES; Metamyelocyte 1 % (0-0); Myelocyte 1 % (0-0); Neutrophil 46 % (42-75); Platelet Morphology Comment Appears Adequate; RBC Morphology Normal; Reflex for Review?? YES
--- NOTE | 2019-09-27 20:38 | PDOC.FPRHP ---
- History of Present Illness Chief Complaint: Lethargy History of Present Illness: Pt is a 44 yo AA F with history of schizoaffective disorder, DMII, Hx of gangrene, HLD, and hypothyroidism who presents for AMS. Pt was here earlier in the day for cyst in her pelvic area. It was drained and packed. Family then took her home and said she was then altered. When they got home she was so weak she couldn't get up and had to be helped by family. They then brought her back to the ER where her BP was found initially to be 60/40. Pt is very distraught and not providing a great history as she wants to go home. States she feels fine at this time. She is A&Ox4. States she feels the infection feels fine. Reports a history of gangrene and states this doesn't feel like this at this time. Pt denied any urinary sx's. Denied any burning with urination. Denied any increased frequency. Denied any dizziness, headaches or lightheadness. Denied any fever or chills. Denied any recent illness other than the abscess. During our interview patient even though did not give the best history. She was A&Ox4 to person, place, time and situation. I voiced my concern for the underlying groin infection and elevated blood glucose and borderline DKA. Also discussed my concern with her that with her past gangrene we need to be cautious and watch this abscess. Also advised pt due to hypotension and AMS on presentation we would at least like to watch her overnight. Pt sister in room and states that she was confused when she was brought in but now she was at her normal baseline. Her sister stated she did not seem delusional. Sister reported before we examined her she was talking to her normally. Pt again stated she did not like the hospital and just wanted go home. She stated she had a hx of hypotension and was just tired. I let patient know that she could leave AMA if she so chose but I think that she needed to stay overnight. At this time pt got somewhat worked up and anxious. I asked if she would like something to help calm down which she agreed to. I then ordered .5mg of ativan to be given. Dr. Cardenas and I then went to see other patients. We then came back down to the ER and pt was screaming and thrashing saying she did not want to be admitted. The ER doctor who took care of her upon admission was in the room. At this time they were getting ready to restrain her and give her medicines. I discussed with the ER doctor that even though she was making a bad decision about going home, I thought she was medically competent to make her own medical decsisions. I even offered to due a full mini mental to deem descision making capacity. The ER doctor said he assessed her and said that she was confused. At this time they gave her haldol and ativan to help her calm down. ED Course: In the ED, she was given Vanc and Ceftriaxone as well as 2L of IVF. She was given Ativan and Haldol by the ER physician after we left the ED. She was found to have a LA of 3.1, WBC: 22.1 with 44 band, UA: 500 sierra, 11-20 WBC, 4+ Brian, Neg Nitrites, UDS Neg, Cre was 1.6 AG was 12, BG 446, BHB 0.49. UDS was negative. - Allergies/Adverse Reactions Allergies Allergy/AdvReac Type Severity Reaction Status Date / Time amoxicillin trihydrate Allergy Severe Rash Verified 07/08/19 14:42 [From Trimox] doxycycline Allergy Severe Anaphylaxis Verified 06/29/19 23:44 peach Allergy Severe Verified 07/08/19 14:41 Penicillins Allergy Severe Anaphylaxis Verified 06/29/19 23:44 strawberry Allergy Severe Verified 07/08/19 14:41 sulfamethoxazole Allergy Severe Anaphylaxis Verified 06/29/19 23:44 [From Bactrim] trimethoprim [From Bactrim] Allergy Severe Anaphylaxis Verified 06/29/19 23:44 orange juice Allergy Verified 07/08/19 14:42 - Home Medications Medication Instructions Recorded Confirmed Type Atorvastatin Calcium [Lipitor] 40 mg PO HS #30 tab 07/11/19 09/28/19 Rx Levothyroxine Sodium [Synthroid] 150 mcg PO 0600 #30 tab 07/12/19 09/28/19 Rx Insulin Glargine [Lantus Vial] 20 units SC QAM 09/28/19 09/28/19 History Sertraline HCl 50 mg PO DAILY 09/28/19 09/28/19 History Comments: the above med list is not correct. The below med list was taken from pt clinic chart which pt states is UTD. Zoloft 50 mg daily Levothyroxine 150 mcg daily Atorvastatin 40 mg daily Lantus 20u in AM - History PMHx: DMII, MDD, Schizoaffective disorder, Anxiety, CAD, Hypothyroidism, Hypotension, Syncope, HLD, Tobacco abuse PSHx: Had surgery for fluid around her heart FHx: Social: Reports smoking. Reports occasional drinking, denies any illicit drug use. Pt is full code - Review of Systems General: reports: fatigue. denies: fever/chills, weight/appetite/sleep changes Eyes: denies: vision changes ENT: denies: nasal congestion, rhinorrhea Respiratory: denies: cough, congestion, shortness of breath Cardiovascular: denies: chest pain, edema Gastrointestinal: denies: nausea, vomiting, diarrhea, constipation, abdominal pain Genitourinary: denies: dysuria, polyuria Skin: reports: rashes. denies: lesions Musculoskeletal: denies: pain, swelling Neurological: denies: numbness, syncope, weakness - Vital signs BP: 119/87 HR: 81 RR: 16 Tmax: 99.5 Pox: 95% on RA Wt: 83.91 kg - Physical Exam Constitutional: NAD, awake, alert and oriented HEENT: normocephalic and atraumatic, PERRLA, EOMI, MMM -HEENT: Poor dentition Neck: supple, trachea midline, no LAD Heart: RRR, normal S1/S2, no murmurs/rubs/gallops, pulses present, no edema Lungs: CTAB, no respiratory distress, good air movement, no rales/rhonchi, no wheezing Abdomen: soft, non-tender, bowel sounds present Musculoskeletal: normal structure, normal tone, ROM grossly normal Neurological: CN II-XII intact -Skin: Cellulitis present on upper medial thighs. Drain placed in R groin Heme/Lymphatic: no unusual bruising or bleeding -Psychiatric: A&O x4 with no visual hallucinations FMR H&P: Results - Labs Result Diagrams: 09/28/19 03:44 09/28/19 03:44 Lab results: WBC 22.1 thou/uL (4.8-10.8) H 09/27/19 19:45 Hgb 13.1 g/dL (12.0-16.0) 09/27/19 19:45 Hct 39.2 % (36.0-47.0) 09/27/19 19:45 MCV 85.3 fL (78.0-98.0) 09/27/19 19:45 Plt Count 336 thou/uL (130-400) 09/27/19 19:45 Band Neuts % (Manual) 44 % (5-11) H 09/27/19 19:45 VBG pCO2 38.4 mmHg (40.0-50.0) L 09/27/19 19:53 VBG pO2 22.5 mmHg (35.0-45.0) L 09/27/19 19:53 Sodium 133 mmol/L (136-145) L 09/27/19 19:45 Potassium 4.2 mmol/L (3.5-5.1) 09/27/19 19:45 Chloride 98 mmol/L (98-107) 09/27/19 19:45 Carbon Dioxide 23 mmol/L (22-29) 09/27/19 19:45 BUN 25 mg/dL (7.0-18.7) H 09/27/19 19:45 Creatinine 1.60 mg/dL (0.6-1.1) H 09/27/19 19:45 Glucose 446 mg/dL (70-105) H 09/27/19 19:45 Lactic Acid 3.1 mmol/L (0.5-2.2) H 09/27/19 19:45 Calcium 9.5 mg/dL (7.8-10.44) 09/27/19 19:45 Total Bilirubin 0.5 mg/dL (0.2-1.2) 09/27/19 19:45 AST 25 U/L (5-34) 09/27/19 19:45 ALT 18 U/L (8-55) 09/27/19 19:45 Alkaline Phosphatase 174 U/L (40-110) H 09/27/19 19:45 Serum Total Protein 7.2 g/dL (6.0-8.3) 09/27/19 19:45 Albumin 3.5 g/dL (3.5-5.0) 09/27/19 19:45 Urine Ketones Negative mg/dL (Negative) 09/27/19 19:34 Urine Blood Trace (Negative) A 01/13/20 19:34 Urine Nitrite Negative (Negative) 09/27/19 19:34 Ur Leukocyte Esterase 500 Sierra/uL (Negative) A 09/27/19 19:34 Urine RBC 0-3 HPF (0-3) 09/27/19 19:34 Urine WBC 11-20 HPF (0-3) A 09/27/19 19:34 Ur Squamous Epith Cells 0-3 HPF (0-3) 09/27/19 19:34 Urine Bacteria 4+ HPF (None Seen) A 09/27/19 19:34 FMR H&P: A/P - Problem List (1) Abscess Current Visit: Yes Status: Acute Code(s): L02.91 - CUTANEOUS ABSCESS, UNSPECIFIED (2) Tobacco abuse Current Visit: Yes Status: Acute Code(s): Z72.0 - TOBACCO USE (3) JESSICA (acute kidney injury) Current Visit: No Status: Acute Code(s): N17.9 - ACUTE KIDNEY FAILURE, UNSPECIFIED (4) Urinary tract infection Current Visit: No Status: Acute (5) Diabetes type 2, uncontrolled Current Visit: No Status: Chronic Code(s): E11.65 - TYPE 2 DIABETES MELLITUS WITH HYPERGLYCEMIA (6) Hyperlipidemia Current Visit: No Status: Chronic Code(s): E78.5 - HYPERLIPIDEMIA, UNSPECIFIED (7) Hypothyroidism Current Visit: No Status: Chronic Code(s): E03.9 - HYPOTHYROIDISM, UNSPECIFIED (8) AMS (altered mental status) Current Visit: Yes Status: Acute Code(s): R41.82 - ALTERED MENTAL STATUS, UNSPECIFIED - Plan Pt is a 44 yo AA F with history of schizoaffective disorder, DMII, Hx of gangrene, HLD, and hypothyroidism who presents for AMS. 1. AMS resolved after 2L bolus * A&O x4, No Hallucinations 2. JESSICA Cre: 1.6, baseline 0.8 * LR @75 * Will monitor with CMP 3. Cellulitis R groin abscess * LA: 3.1 * Will trend * ED: Vanc and Rocephin * Will continue Vanc and start Clinda * Leukocytosis with bandemia * Will monitor with CBC * Cultured * Hx of gangrene on L side * Consulted wound care 4. DMII B, BHB: 0.49, A * Will continue home Lantus dosing * SSI Mod * Given 10 of Regular now * Will monitor with CMP 5. Hypothyroidism * Will continue home meds 6. Hypotension Resolved 7. Tobacco Abuse * Nicotine patch * Tobacco cessation Code Status: Full Diet: CC Lines: Peripheral, NS 75 DVT PPx: Lovenox GI PPx: Famotidine PCP: MAURICIO German Dispo: IMCU inpt, LOS > 48H. FMR H&P: Upper Level - Pertinent history I was present during the HPI, I scribed for Dr. Roberto Cardenas, PGY1, as she obtained the history. See above for details. - Pertinent findings General: Pt A&Ox4. Pt somewhat anxious and states wanted to leave AMA Cardio: RRR, no murmurs or gallops Resp: CTA-B, no wheezes or crackles : Open area along pubic groin area. no acute drainage noted. There is redness all around it with mild swelling. On the right groin side. Left side has old areas from previous gangrene. - Plan Date/Time: 09/27/192037 I, Ramsey Ruffin, PGY-3, have evaluated this patient and agree with findings/ plan as outlined by risk intern resident. Pertinent changes/additions are listed here. See above for detailed plan. I edited above as needed. The ER doc reported concern for sepsis. At this time pt did not meet sepsis criteria. Only has leukocytosis and Lactic Acidosis. There were no recorded fevers, tachy or increased RR. Blood cx were obtained due to this concern. Will tx skin infection with Vanc and Clindamycin. There were no recorded wound cx taken from visit earlier. Wound cx obtained. WBC elevated. Will trend. Pt denied any urinary sx's but UA shows signs of UTI. Will get urine cx. Pt Glucose elevated with elevated ketones. Anion Gap was 12. Pt borderline going into DKA. Will give 10 u of regular insulin and start on mild SSI. Will repeat glucose in a few hours and tx as needed. Will trend lactic acid. Pt was brought back to ER due to confusion and found to be hypotension. Pt has history. Vitals improved with fluid bolus. Pt mental status at baseline per Sister during the HPI and then had episode of confusion after reported by the ER doctor. At this time pt is being sent to IMCU for concern. Will continue to monitor. Possibly related to hypotensive episode and infection. Wound care consulted to follow along with wound. Pt has hx of gangrene. If wound continues to acutely worsen will get imaging.
--- NOTE | 2019-09-27 20:59 | RAD ---
ONE VIEW CHEST: History: Sepsis. Hypotension. Comparison: 07-17-19 FINDINGS: Normal cardiac silhouette. Atherosclerosis of the aorta. No pleural effusion. No parenchymal masses or consolidation. No pneumothorax. Calcified granuloma in the right lung is noted. IMPRESSION: Atherosclerosis. No acute cardiopulmonary process. POS: PPP
[2019-09-27] MEDS ORDERED: Lorazepam 2 MG/ML VIAL ONE ×2 (21:30→22:13)
[2019-09-27] MEDS ORDERED: Ondansetron ODT 4 MG TAB PO PRN (21:35)
[2019-09-27] MEDS ORDERED: Dextrose 5% in Water 1,000 ML IV PRN (21:35)
[2019-09-27] MEDS ORDERED: HumaLOG 300 UNITS/3 ML VIAL SC PRN ×2 (21:35)
[2019-09-27] MEDS ORDERED: Senokot S 8.6-50 MG TAB PO PRN (21:35)
[2019-09-27] MEDS ORDERED: Dextrose 50% Abboject 50 ML SYRINGE SLOW IVP PRN (21:35)
[2019-09-27] MEDS ORDERED: Acetaminophen 650 MG Suppository PR PRN (21:35)
[2019-09-27] MEDS ORDERED: Acetaminophen 325 MG TAB PO PRN (21:35)
[2019-09-27] MEDS ORDERED: Insulin Regular 300 UNITS/3 ML VIAL SC SCH (21:45)
[2019-09-27] MEDS ORDERED: Haloperidol Lactate 5 MG/ML VIAL ONE (22:13)
[2019-09-27] MEDS ORDERED: Lactated Ringer's 1,000 ML IV SCH (23:15)
[2019-09-27 23:43] LABS: Lactic Acid 1.2 mmol/L (0.5-2.2)
[2019-09-27] MEDS: Clindamycin/D5W 900 MG in Premix Bag 1 BAG IVPB SCH (23:48)
[2019-09-27] MEDS: Nicotine 14 MG PATCH TD SCH (23:56)
[2019-09-28] MEDS: Lactated Ringer's 1,000 ML IV SCH ×2 (01:40→14:40)
[2019-09-28 02:06] LABS: Anion Gap 13 mmol/L (10-20); BUN (Urea Nitrogen) 23 mg/dL (7.0-18.7); Calc. Creatinine Clearance 69 mL/min (70-130); Calcium 8.3 mg/dL (7.8-10.44); Carbon Dioxide 21 mmol/L (22-29); Chloride 104 mmol/L (98-107); Estimated GFR-MDRD 49; Glucose 436 mg/dL (70-105); Potassium 3.8 mmol/L (3.5-5.1); Sodium 134 mmol/L (136-145)
[2019-09-28 04:14] LABS: #Eosinphils 0.1 thou/uL (0.0-0.7); #Lymphocytes 1.8 thou/uL (1.20-3.40); #Monocytes 0.4 thou/uL (0.11-0.59); #Neutrophils 12.5 thou/uL (1.40-6.50); %Basophils 0.2 % (0.0-1.0); %Eosinophils 0.7 % (0.0-10.0); %Lymphocytes 12.1 % (21.0-51.0); %Monocytes 2.8 % (0.0-10.0); %Neutrophils 84.2 % (42.0-75.0); Hemoglobin 11.5 g/dL (12.0-16.0); Mean Corpuscular HGB CONC 34.2 g/dL (32.0-36.0); Mean Corpuscular Hemoglobin 29.8 pg (27.0-31.0); Mean Platelet Volume 7.3 fL (7.4-10.4); Platelet Count 280 thou/uL (130-400); RBC Distribution Width 13.1 % (11.5-14.5); Red Blood Cell (RBC) Count 3.87 mill/uL (4.20-5.40); White Blood Cell (WBC) Count 14.8 thou/uL (4.8-10.8)
[2019-09-28 04:38] LABS: ALT (SGPT) 12 U/L (8-55); AST (SGOT) 11 U/L (5-34); Albumin 2.8 g/dL (3.5-5.0); Alkaline Phosphatase 143 U/L (40-110); Anion Gap 11 mmol/L (10-20); BUN (Urea Nitrogen) 23 mg/dL (7.0-18.7); Bilirubin, Total 0.2 mg/dL (0.2-1.2); Calc. Creatinine Clearance 80 mL/min (70-130); Calcium 8.2 mg/dL (7.8-10.44); Carbon Dioxide 22 mmol/L (22-29); Chloride 107 mmol/L (98-107); Estimated GFR-MDRD 57; Glucose 322 mg/dL (70-105); Potassium 3.5 mmol/L (3.5-5.1); Protein, Total 5.8 g/dL (6.0-8.3); Sodium 136 mmol/L (136-145)
--- NOTE | 2019-09-28 05:38 | PDOC.FM ---
- Subjective Subjective: No acute events and VS stable overnight. Patient still very somnolent from haldol and ativan given last night in the ED. Oriented to person only. Only responded to some questioning with one word phrases. - Objective MAR Reviewed: Yes Vital Signs & Weight: Vital Signs (12 hours) Temp Pulse Ox 09/28/19 03:29 97.0 F L 09/28/19 00:21 95 09/27/19 23:11 97.6 F Weight Weight 30.4 kg Most Recent Monitor Data Heart Rate from ECG 67 NIBP 90/66 NIBP BP-Mean 74 Respiration from ECG 15 SpO2 98 I&O: 09/26/19 09/27/19 09/28/19 06:59 06:59 06:59 Output Total 850 Balance -850 Result Diagrams: 09/28/19 03:44 09/28/19 03:44 Phys Exam - Physical Examination Constitutional: NAD HEENT: moist MMs Neck: supple Respiratory: no wheezing, no rales, no rhonchi, clear to auscultation bilateral Cardiovascular: RRR, no significant murmur Gastrointestinal: non-tender Musculoskeletal: no edema unable to assess 2/2 somnolence Deviation from normal: unable to assess 2/2 somnolence; oriented to person Deviation from normal: ~5x4cm area of erythema in R groin w/ central incision from I&D -: minimal bloody drainage noted Dx/Plan (1) AMS (altered mental status) Code(s): R41.82 - ALTERED MENTAL STATUS, UNSPECIFIED Status: Resolved (2) Tobacco abuse Code(s): Z72.0 - TOBACCO USE Status: Chronic (3) JESSICA (acute kidney injury) Code(s): N17.9 - ACUTE KIDNEY FAILURE, UNSPECIFIED Status: Resolved (4) Hyperglycemia Code(s): R73.9 - HYPERGLYCEMIA, UNSPECIFIED Status: Acute (5) Schizophrenia Code(s): F20.9 - SCHIZOPHRENIA, UNSPECIFIED Status: Acute (6) Diabetes type 2, uncontrolled Code(s): E11.65 - TYPE 2 DIABETES MELLITUS WITH HYPERGLYCEMIA Status: Chronic (7) Hyperlipidemia Code(s): E78.5 - HYPERLIPIDEMIA, UNSPECIFIED Status: Chronic (8) Hypothyroidism Code(s): E03.9 - HYPOTHYROIDISM, UNSPECIFIED Status: Chronic - Plan Plan: 1. AMS resolved after 2L bolus overnight but very somnolent on exam this AM 2/2 ativan & haldol given in ER. * Will continue to monitor closely. * NPO for now as patient failed initial bedside swallow study. 2. JESSICA Cr: 1.21 on presentation but down to 1.05 this AM s/p IVf resuscitation. * Will de-escalate IVFs today if patient is tolerating PO. * Will continue to monitor with CMPs. 3. Cellulitis R groin abscess * s/p I&D in the ER earlier yesterday. * LA: 3.1 --> 1.2 & WBC 22.1--> 14.8 since admission. Will continue to trend WBC counts. * Received Vanc and Rocephin in the ED but will continue vanc & clinda to cover for MRSA and strep species as they are the most likely cause of her soft tissue infection. * Will also add levaquin per financial market dealer recs & consider performing a pelvic exam vs. imaging to better characterize extension/depth of infection. Appreciate recs. * Wound & blood Cxs pending 4. IDDMII, uncontrolled B, BHB: 0.49, & A on admission, BG still elevated this AM at 322. * Will continue Lantus w/ mild SSI & titrate meds PRN to keep BG levels between 140-180 while in hospital, especially in setting of acute infection. * CC diet, hypoglycemia protocol. * Diabetes education. 5. Hypothyroidism- TSH elevated at 5.0559 on admission * Will continue home meds * Repeat TSH & free T4 6. Hypotension * Resolved s/p IVF resuscitation. MAP between 71-96 since admission. * Will continue to monitor BP closely. 7. Tobacco Abuse * Nicotine patch * Tobacco cessation education 8. Normocytic anemia * Likely dilutional s/p 2L in ED @ IVFs overnight as Hgb on admission with WNLs. Will continue to trend. 9. Schizoaffective disorder * Will review clinic notes & resume home meds. Continue sertraline for now. Code Status: Full Diet: NPO pending patient passes bedside swallow study Lines: Peripheral, NS @ 75 DVT PPx: Lovenox GI PPx: Famotidine PCP: MAURICIO German Dispo: Will continue IV abx pending wound & blood Cxs and keep in IMCU per intenvist recs. Addendum - Attending - Attending Attestation Date/Time: 09/28/19 [id number] I personally evaluated the patient and discussed the management with Dr. Hoskins. I agree with the History, Examination, Assessment and Plan documented above with any addition or exceptions noted below.
[2019-09-28] MEDS: Levothyroxine 150 MCG TAB PO SCH (05:41)
[2019-09-28] MEDS: Clindamycin/D5W 900 MG in Premix Bag 1 BAG IVPB SCH ×3 (05:41→22:11)
--- NOTE | 2019-09-28 06:57 | PDOC.PULCN ---
Pulmonology Consult: HPI - Date of Consult Date: 09/28/19 Time: 06:55 - Consult Details Reason for Consult: IMCU admission- encephalopathy Requesting Physician: [facility] - History of Present Illness HPI: GENEVIEVE GIFFORD is a 44 year-old F who was brought in by family for altered mental status yesterday evening. That morning she had gone to the ER for development of right groin abscess with cellulitis in which she was concerned for it developing into gangrene since she has reported history of this. Underwent I&D and sent home on oral antibiotics. Per family she experienced an episode of confusion shortly after being home. She was brought back to the ER and found to be hyperglycemic and was fluid resuscitated and resumed mental baseline. There was initially concern for sepsis in which she was given antibiotics. She had an episode of severe agitation in which there was concern for her overall deterioration and thus admitted to the IMCU. Pulmonology Consult: ROS - Review of Systems Constitutional: negative: fever, chills, weakness Respiratory: no reported symptoms. negative: short of breath, wheezing Pulmonology Consult: H Source: patient Past Medical History: IDDM2, MDD, schizoaffective disorder, anixety, CAD, hypothyroidism, hypotension , syncope, HLD, Tobacco abuse - Social History Alcohol Use: occasional Drug Use History: pt denies any use Pulmonology Consult: Meds - Medications MAR Reviewed: Yes Medications: Current Medications Acetaminophen (Tylenol) 650 mg PO Q4H PRN PRN Reason: Headache/Fever/Mild Pain (1-3) Acetaminophen (Tylenol) 650 mg [place] Q4H PRN PRN Reason: Headache/Fever/Mild Pain (1-3) Atorvastatin Calcium (Lipitor) 40 mg PO HS ANDRE Dextrose/Water (Dextrose 50%) 25 gm SLOW IVP PRN PRN PRN Reason: Hypoglycemia Enoxaparin Sodium (Lovenox) 40 mg SC 0900 ANDRE Famotidine (Pepcid) 20 mg PO BID ANDRE Glucagon (Glucagon) 1 mg IM PRN PRN PRN Reason: Hypoglycemia Dextrose/Water (D5w) 1,000 mls @ 0 mls/hr IV .Q0M PRN PRN Reason: Hypoglycemia Clindamycin Phosphate/Dextrose (900 mg/ Device) 50 mls @ 100 mls/hr IVPB Q8HR ANDRE Last Admin: 09/28/19 05:41 Dose: 50 mls Lactated Ringer's (Lactated Ringer's) 1,000 mls @ 75 mls/hr IV .[id number] [facility] Last Admin: 09/28/19 01:40 Dose: 1,000 mls Insulin Glargine 20 units/ (Miscellaneous Medication) 0.2 mls @ 0 mls/hr SC QAM [facility] Insulin Human Lispro (Humalog) 0 units SC .BEDTIME SLIDING SC PRN PRN Reason: Bedtime Correctional Scale Last Admin: 09/28/19 03:15 Dose: 4 unit Insulin Human Lispro (Humalog) 0 units SC .MILD SLIDING SCALE PRN PRN Reason: moderate correctional scale Levothyroxine Sodium (Synthroid) 150 mcg PO 0600 [facility] Last Admin: 09/28/19 05:41 Dose: Not Given Nicotine (Nicoderm Patch) 14 mg TD Q24HR [facility] Last Admin: 09/27/19 23:56 Dose: 14 mg Ondansetron HCl (Zofran Odt) 4 mg PO Q6H PRN PRN Reason: Nausea/Vomiting Ondansetron HCl (Zofran) 4 mg IVP Q6H PRN PRN Reason: Nausea/Vomiting Senna/Docusate Sodium (Senokot S) 2 tab PO BID PRN PRN Reason: Constipation Sertraline HCl (Zoloft) 50 mg PO DAILY [facility] Sodium Chloride (Flush - Normal Saline) 10 ml IVF PRN PRN PRN Reason: Saline Flush Sodium Chloride (Flush - Normal Saline) 10 ml IVF Q12HR PRN PRN Reason: Saline Flush - Allergies Allergies/Adverse Reactions: Allergies Allergy/AdvReac Type Severity Reaction Status Date / Time amoxicillin trihydrate Allergy Severe Rash Verified 07/08/19 14:42 [From Trimox] doxycycline Allergy Severe Anaphylaxis Verified 06/29/19 23:44 peach Allergy Severe Verified 07/08/19 14:41 Penicillins Allergy Severe Anaphylaxis Verified 06/29/19 23:44 strawberry Allergy Severe Verified 07/08/19 14:41 sulfamethoxazole Allergy Severe Anaphylaxis Verified 06/29/19 23:44 [From Bactrim] trimethoprim [From Bactrim] Allergy Severe Anaphylaxis Verified 06/29/19 23:44 orange juice Allergy Verified 07/08/19 14:42 Pulmonology Consult: PE - Physical Exam Constitutional: NAD HEENT: sclera anicteric Neck: full ROM Cardiovascular: RRR, no significant murmur Respiratory: clear to auscultation anteriorly. negative: prolonged expiratory phase, wheezes Gastrointestinal: soft, non-tender Musculoskeletal: no edema, pulses present Neurological: non-focal Psychiatric: A&O x 3 Deviation from normal: right groin draining wound with no fluctuance. Mildly tender to touch. Pulmonology Consult: Results - Labs Result Diagrams: 09/30/19 03:01 09/30/19 03:01 - ABG Interpretation ABG Results: POC Bicarbonate Calc 23.0 mmol/L (22.0-28.0) 09/27/19 19:53 - Radiology Interpretation Chest x-ray Status: image reviewed by me, report reviewed by me Pulmonology Consult: A/P - Problem (1) Cellulitis Code(s): L03.90 - CELLULITIS, UNSPECIFIED Status: Acute (2) AMS (altered mental status) Code(s): R41.82 - ALTERED MENTAL STATUS, UNSPECIFIED Status: Resolved (3) Tobacco abuse Code(s): Z72.0 - TOBACCO USE Status: Chronic (4) Diabetes type 2, uncontrolled Code(s): E11.65 - TYPE 2 DIABETES MELLITUS WITH HYPERGLYCEMIA Status: Chronic - Time Time: 50% of the time was spent in coordination of care (as documented) at patient's floor/unit and/or counseling patient. Time with Patient: greater than 50 minutes - Plan Plan: 44 yo F with poorly controlled IDDM2, hypothyroidism, tobacco abuse, CKD admitted to [facility] due to concern for deterioration and questionable stability. 1. Acute encephalopathy, likely metabolic-resolved, patient is A&O x4. Vitals are stable. Likely due to hyperglycemic states yesterday. 2. JESSICA on CKD- Resolved. Cr downtrended to 1.05 after fluid resuscitation. Likely a result of dehydration from hyperglycemia. 3. Hyperglycemia in IDDM2 without AG acidosis- Initially with elevated bHb, hyperglycemia and non gap met. acidosis. Acidosis has resolved on morning labs after fluid resuscitation and subcutaneous insulin. Hyperglycemia resolved. bHb within normal limits. 4. Right groin cellulitis - Did not meet criteria on admission but with bandemia and type 2 diabetic. On IV vanc & clinda pending wound & blood cultures. Rx adding gram negative coverage such as levaquin. Continue wound care. Rx pelvic exam to further assess depth of wound and r/o extension, assess formal OBGYN consult manolo with history of gangrene. 5. Hypothyroidism- recheck TSH/fT4 6. Bipolar disorder-stable, resume home medication Discussed with Dr. Rodriguez Dispo: >2 midnights. Continue IMCU care for now. See my addendum
[2019-09-28] MEDS ORDERED: Insulin Glargine 15 UNITS in Pre-Filled Syringe 1 EACH SC SCH (09:00)
[2019-09-28] MEDS ORDERED: Insulin Glargine 20 UNITS in Pre-Filled Syringe 1 EACH SC SCH (09:00)
[2019-09-28 10:46] LABS: Free T4 (Free Thyroxine) 0.96 ng/dL (0.70-1.48); Thyroid Stimulating Hormone 0.4641 uIU/mL (0.35-4.94)
--- NOTE | 2019-09-28 11:45 | CON ---
DATE OF CONSULTATION: 09/28/2019 TIME SPENT: This encompassed 50 minutes time, of that time greater than 50% spent with the patient and/or the patient's unit in the hospital. HISTORY OF PRESENT ILLNESS: This is a 44-year-old, who I am seeing in conjunction with [facility]. She has been admitted for sepsis related to an abscess in the right external labia/groin area. Please see Dr. Kearns's note for further information regarding the history. She also has concurrent mental status changes, probably related to the sepsis and she has received some antipsychotics and antianxiety medication last night that has made her sleepy. Therefore, she cannot wake up and give me history. I have seen the patient and examined her individually. I have reviewed her laboratory data, which shows a significantly elevated white blood cell count with bandemia and hyperglycemia, out of control, with some degree of lactic acidosis. I have recommended that the team extend the antibiotic coverage to include gram-negative coverage, such as Levaquin. 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 Our team will follow while she is in the [facility]. Job ID: [id number]
[2019-09-28] MEDS: Famotidine 20 MG TAB PO SCH ×2 (12:09→21:51)
[2019-09-28] MEDS: Enoxaparin Sodium 40 MG/0.4 ML SYRINGE SC SCH (12:11)
[2019-09-28 13:29] VITALS: BMI 31.5
[2019-09-28] MEDS: Vancomycin HCl 1.25 GM in Sodium Chloride 0.9% 250 ML 250 ML IVPB SCH (15:40)
[2019-09-28 17:27] LABS: Syphilis Antibody Nonreactive (Nonreactive); Syphilis Antibody Index 0.06 S/CO (<1.00 Non-Reactive)
[2019-09-28 17:32] LABS: HIV (1/2) Antibody/Antigen Non-Reactive (NonReactive); HIV 1/2 INDEX 0.14 S/CO (<1.00)
[2019-09-28] MEDS: Miconazole 2% Vaginal Cream 45 GM TUBE VAG SCH (21:51)
[2019-09-28] MEDS: Nicotine 14 MG PATCH TD SCH (21:51)
[2019-09-28] MEDS: Atorvastatin Calcium 40 MG TAB PO SCH (21:51)
[2019-09-29 04:07] LABS: #Eosinphils 0.1 thou/uL (0.0-0.7); #Lymphocytes 1.5 thou/uL (1.20-3.40); #Monocytes 0.4 thou/uL (0.11-0.59); #Neutrophils 6.6 thou/uL (1.40-6.50); %Basophils 0.6 % (0.0-1.0); %Eosinophils 1.6 % (0.0-10.0); %Lymphocytes 17.1 % (21.0-51.0); %Monocytes 4.5 % (0.0-10.0); %Neutrophils 76.3 % (42.0-75.0); Hemoglobin 10.9 g/dL (12.0-16.0); Mean Corpuscular HGB CONC 33.4 g/dL (32.0-36.0); Mean Corpuscular Hemoglobin 28.6 pg (27.0-31.0); Mean Corpuscular Volume 85.8 fL (78.0-98.0); Mean Platelet Volume 7.5 fL (7.4-10.4); Platelet Count 299 thou/uL (130-400); RBC Distribution Width 12.8 % (11.5-14.5); Red Blood Cell (RBC) Count 3.82 mill/uL (4.20-5.40); White Blood Cell (WBC) Count 8.6 thou/uL (4.8-10.8)
[2019-09-29] MEDS: Vancomycin HCl 1.25 GM in Sodium Chloride 0.9% 250 ML 250 ML IVPB SCH ×2 (04:16→16:09)
[2019-09-29 04:32] LABS: ALT (SGPT) 10 U/L (8-55); AST (SGOT) 9 U/L (5-34); Albumin 2.7 g/dL (3.5-5.0); Alkaline Phosphatase 113 U/L (40-110); Anion Gap 10 mmol/L (10-20); BUN (Urea Nitrogen) 18 mg/dL (7.0-18.7); Bilirubin, Total 0.2 mg/dL (0.2-1.2); Calc. Creatinine Clearance 96 mL/min (70-130); Calcium 8.2 mg/dL (7.8-10.44); Carbon Dioxide 24 mmol/L (22-29); Chloride 106 mmol/L (98-107); Estimated GFR-MDRD 68; Globulin 2.9 g/dL (2.4-3.5); Glucose 153 mg/dL (70-105); Potassium 4.4 mmol/L (3.5-5.1); Protein, Total 5.6 g/dL (6.0-8.3); Sodium 136 mmol/L (136-145)
[2019-09-29] MEDS ORDERED: Lactated Ringer's 1,000 ML IV SCH (06:12)
--- NOTE | 2019-09-29 06:17 | PDOC.FM ---
- Subjective Subjective: NAEO. VS remain stable & BG levels in goal range. Patient much more alert on exam this AM and answered all questions appropriately. Denied any pain in R groin area. No fever/chills, SOB or constipation. - Objective MAR Reviewed: Yes Vital Signs & Weight: Vital Signs (12 hours) Temp Pulse Ox 09/29/19 04:18 98.8 F 09/28/19 23:18 98.0 F 09/28/19 20:00 98 09/28/19 19:54 98.0 F Weight Admit Weight 72.938 kg Weight 75.759 kg Most Recent Monitor Data Heart Rate from ECG 68 NIBP 131/80 NIBP BP-Mean 97 Respiration from ECG 16 SpO2 97 I&O: 09/27/19 09/28/19 09/29/19 06:59 06:59 06:59 Intake Total 1333 1650 Output Total 850 400 Balance 483 1250 Result Diagrams: 09/30/19 03:01 09/30/19 03:01 Phys Exam - Physical Examination Constitutional: NAD HEENT: moist MMs Neck: supple Respiratory: no wheezing, no rales, no rhonchi, clear to auscultation bilateral Cardiovascular: RRR, no significant murmur Gastrointestinal: soft, no distention Neurological: non-focal, moves all 4 limbs Psychiatric: normal affect, A&O x 3 Skin: no rash Deviation from normal: ~5x4cm area of erythema & induration in R groin w/ packing in place -: no drainage or bleeding noted Dx/Plan (1) AMS (altered mental status) Code(s): R41.82 - ALTERED MENTAL STATUS, UNSPECIFIED Status: Resolved (2) Tobacco abuse Code(s): Z72.0 - TOBACCO USE Status: Chronic (3) JESSICA (acute kidney injury) Code(s): N17.9 - ACUTE KIDNEY FAILURE, UNSPECIFIED Status: Resolved (4) Hyperglycemia Code(s): R73.9 - HYPERGLYCEMIA, UNSPECIFIED Status: Resolved (5) Schizophrenia Code(s): F20.9 - SCHIZOPHRENIA, UNSPECIFIED Status: Chronic (6) Diabetes type 2, uncontrolled Code(s): E11.65 - TYPE 2 DIABETES MELLITUS WITH HYPERGLYCEMIA Status: Chronic (7) Hyperlipidemia Code(s): E78.5 - HYPERLIPIDEMIA, UNSPECIFIED Status: Chronic (8) Hypothyroidism Code(s): E03.9 - HYPOTHYROIDISM, UNSPECIFIED Status: Chronic (9) Acute urinary retention Code(s): R33.8 - OTHER RETENTION OF URINE Status: Acute (10) Vulvovaginal candidiasis Code(s): B37.3 - CANDIDIASIS OF VULVA AND VAGINA Status: Acute (11) Urinary tract infection Status: Acute (12) Noncompliance with medication regimen Code(s): Z91.14 - PATIENT'S OTHER NONCOMPLIANCE WITH MEDICATION REGIMEN Status : Chronic - Plan Plan: 44YOF with a PMH significant for schizoaffective disorder, IDDMII, HTN & hypothyroidism who was brought to the ED for AMS following I&D of a R groin abscess earlier that day. Purulent Cellulitis with abscess of R groin s/p ED I&D w/ possible bacteremia * s/p I&D in the ER on date of admission but still a significant area of induration & WC unable to treat, recommended a surgery consultation. * WBC 22.1--> 14.8-->8.6 since admission. Will continue to trend. * Will continue vanc, clinda & levaquin IV pending Cx results as prelim Cx results show mixed results, GNRs, gram + cocci in pairs & gram + rods. * 1/2 blood Cxs pending showing coag negative staph, most likely a contaminant but will continue BS abx until results are final. Ecoli UTI - UA obtained via straight cath in ED very dirty & prelim urine Cx shows > 100k cfus E coli. - Will continue IV levaquin pending sensitivities. Acute urinary retention - Patient unable to void well since admission. Denied any issues with urinary retention in the past. Gardner placed yesterday to avoid having to continue to straight cath overnight again. Could be 2/2 anticholinergic effects from haldol given on presentation. - Will attempt to remove gardner following surgical evaluation and do bladder training. vulvovaginal candidiasis - VP3 done with pelvic exam yesterday + for miranda. - Continue monistat 7 suppositories for 6 more days to complete full 7 day course. - GC/Chlamydia also pending. Unsafe & unhealthy living conditions - Patients nurse stopped by and informed patient's nurse that the patient lives in [facility] and is not very compliant with her prescribed meds which likely explains why she is ill so often with such severe infections (h/o gangrene in left groin abscess). - CM on board to assist with possible placement upon d/c. Will also notify APS given reported living conditions. - HIV & RPR negative. 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 Cr & eGFr this AM 0.9 & 68. - Will continue to renally dose meds as indicated & continue to trend w/ QD CMPs. IDDMII, uncontrolled * BG within goal range this AM at 153. * Will continue to titrate home meds to keep BG levels between 140-180 while inpatient, especially in setting of acute infection. * CC diet, hypoglycemia protocol. * Diabetes education. Hypothyroidism- TSH elevated at 5.0559 on admission * Will continue home meds. * Repeat T3 & T4 WNLs. HTN - Will resume home meds once not NPO for possible procedure. Tobacco Abuse * Nicotine patch. * Tobacco cessation education. Normocytic anemia * Hgb down to 10.9 this AM but patient has been getting IVFs since admission thus likely dilutional with possible coinciding anemia of chronic disease. * Will continue to trend. Schizoaffective disorder * Continue sertraline. AMS resolved after 2L bolus overnight but very somnolent on exam this AM 2/2 ativan & haldol given in ER. * Will continue to monitor closely. Hypotension, resolved. Code Status: Full Diet: NPO pending general surgery evaluation Lines: Peripheral, LR @ 100mL/hr DVT PPx: Lovenox GI PPx: Famotidine PCP: MAURICIO German Dispo: Will continue IV abx pending wound & blood Cxs and keep in IMCU per intenvist recs. Addendum - Attending - Attending Attestation Date/Time: 10/01/19 3070 I personally evaluated the patient and discussed the management with Dr. Hoskins. I agree with the History, Examination, Assessment and Plan documented above with any addition or exceptions noted below.
[2019-09-29] MEDS: Levothyroxine 150 MCG TAB PO SCH (06:47)
[2019-09-29] MEDS: Clindamycin/D5W 900 MG in Premix Bag 1 BAG IVPB SCH ×3 (06:47→21:20)
[2019-09-29] MEDS: Lactated Ringer's 1,000 ML IV SCH (07:00)
[2019-09-29] MEDS ORDERED: Lidocaine 1% PF 5 ML VIAL ONE (09:46)
[2019-09-29] MEDS ORDERED: PROPOFOL 200 MG/20 ML VIAL ONE (09:46)
[2019-09-29] MEDS ORDERED: Ondansetron PF 4 MG/2 ML Vial ONE (09:46)
[2019-09-29] MEDS ORDERED: PHENYLEPHRINE-NS 100 MCG/ML 10 ML SYRINGE ONE (09:46)
[2019-09-29] MEDS ORDERED: ePHEDrine/0.9% NaCl/PF SYRINGE 50 mg/10 ml ONE (09:46)
[2019-09-29] MEDS: Famotidine 20 MG TAB PO SCH ×2 (10:00→20:42)
[2019-09-29] MEDS: Enoxaparin Sodium 40 MG/0.4 ML SYRINGE SC SCH (10:00)
[2019-09-29] MEDS ORDERED: Fentanyl 100 MCG/2 ML VIAL ONE (11:13)
[2019-09-29] MEDS ORDERED: Ondansetron HCl/PF 4 MG/2 ML Vial IVP PRN (12:14)
[2019-09-29] MEDS ORDERED: Promethazine HCl 25 MG/ML VIAL IM PRN (12:14)
[2019-09-29] MEDS ORDERED: Promethazine HCl 25 MG/ML VIAL SLOW IVP PRN (12:14)
--- NOTE | 2019-09-29 12:47 | CON ---
DATE OF CONSULTATION: 09/29/2019 REQUESTING PHYSICIAN: Iqra Hoskins MD HISTORY OF PRESENT ILLNESS: This is a 44-year-old woman with history of type 2 diabetes mellitus, who was admitted on 09/27/2014 with a right groin abscess. The patient reports having a small boil in the right groin approximately a week and half. This was apparently incised and drained in the Emergency Department prior to this admission. Culture of the wound is positive for gram-negative jodee. Currently, the patient is on antibiotic therapy. The patient has been afebrile since this admission. She currently denies any chills. PAST MEDICAL HISTORY: Significant for type 2 diabetes mellitus, schizoaffective disorder, hypothyroidism, coronary artery disease, and hyperlipidemia. PAST SURGICAL HISTORY: Pertinent for what I think is pericardial synthesis and most recent incision and drainage of the right groin abscess. SOCIAL HISTORY: She smokes equivalent of approximately 15 pack years. She admits to occasional intake of ethanol in moderate amounts and denies any illicit drug abuse. FAMILY HISTORY: Noncontributory for this patient's age. CURRENT MEDICATIONS: Includes; 1. Clindamycin and levofloxacin intravenously. 2. She is also receiving topical miconazole for vaginal yeast infection. 3. Additionally, she is on Zoloft 50 mg p.o. daily. 4. Atorvastatin 40 mg p.o. at bedtime. 5. Levothyroxine 150 mcg p.o. daily. 6. Lantus insulin 20 units subcutaneously q.a.m. ALLERGIES: TO PENICILLIN AND DOXYCYCLINE. REVIEW OF SYSTEMS: Ten-point review of systems essentially unremarkable except as stated in past medical history and chief complaint. PHYSICAL EXAMINATION: GENERAL: This reveals a 44-year-old normally developed woman, who is otherwise coherent, interactive, and appears stated age. The patient is alert and oriented x3, appears to be in no acute distress at the time of my evaluation. VITAL SIGNS: Includes blood pressure 140/84, pulse is 102, respiratory rate is 18, temperature is 97.6 degrees Fahrenheit, and oxygen saturation is 95% on room air. HEENT: Reveals pupils equal, round, and reactive to light and accommodation. She has no jugular venous distention noted. HEART: Reveals regular rate with mild sinus tachycardia. No murmurs or gallops auscultated. LUNGS: Clear to auscultation bilaterally. Her breathing is regular and nonlabored. ABDOMEN: Soft, nontender, and nondistended. EXTREMITIES: Right groin is inspected. There is a 2 mm opening in an indurated right groin cellulitic wound. Quarter inch gauze strip was removed from the wound and reveals gross purulent drainage with underlying necrotic subcutaneous fat. The wound is exquisitely tender to touch. NEUROLOGIC: Reveals no focal deficits present. LABORATORY FINDINGS: Today includes a CBC with 8600 white blood cells hemoglobin and hematocrit 10.9 and 32.8 respectively. Platelet count is 299,000. Metabolic profile; sodium 136, potassium is 4.4, chloride is 106, bicarb is 24, BUN is 18, creatinine 0.90, and glucose 153. IMPRESSION: Right groin abscess in a diabetic patient. RECOMMENDATIONS: 1. Incision and drainage with possible excisional debridement of the wound to exclude necrotizing soft tissue infection. 2. Continue current antibiotic regimen. Above findings and plan discussed with the patient, who indicates understanding of the information given. The patient is going to consent for surgical intervention. Thank you, Dr. Hoskins, for allowing me the opportunity to participate in the care of this patient. Job ID: [id number]
--- NOTE | 2019-09-29 12:52 | OP ---
DATE OF PROCEDURE: 09/29/2019 PREOPERATIVE DIAGNOSIS: Right groin abscess with necrotizing soft tissue wound. POSTOPERATIVE DIAGNOSIS: Right groin abscess with necrotizing soft tissue wound. PROCEDURE PERFORMED: Excisional debridement of necrotizing right groin soft tissue wound. ANESTHESIA: General endotracheal. ESTIMATED BLOOD LOSS: Negligible. COUNTS: Sponge and instrument counts were verified as correct x2. INDICATIONS FOR OPERATION: This is a 44-year-old woman with history of type 2 diabetes mellitus who presented with right groin abscess. The wound was incised and drained in the emergency department with quarter-inch gauze strips placed in a tunneling wound. The patient was seen this morning in consultation. There is residual induration and associated painful right groin wound with gross purulence. Previous cultures positive for gram-negative rods. The patient is brought to the operating room today for excisional debridement and to exclude necrotizing soft tissue wound infection. Findings are consistent with necrotizing soft tissue wound that does not traverse the fascia. DESCRIPTION OF OPERATION: Informed consent was obtained from the patient, brought to the operating room and placed in supine position. Following general anesthesia, right groin was sterilely prepped and draped in usual fashion. A middle oblique incision over the dome of the previous wound to open the inferior tunnel. Hemostasis was achieved using cautery. The incision was made using 15 scalpel. Necrotizing and underlying soft tissue wounds were sharply debrided using Metzenbaum scissors. Bleeding points were cauterized to achieve hemostasis. The wound bed was then copiously irrigated, clear with saline. Fascia was intact. The wound bed was then packed using half-inch plain gauze strips. Sterile dressings were applied. The patient tolerated this procedure without any apparent complication and was returned to the recovery room in satisfactory condition. Job ID: [id number]
--- NOTE | 2019-09-29 13:16 | PDOC.BPN ---
- Brief Progress Note Home Visit Provider Report: Patient is enrolled in the [facility] Home Visit Program with ZACHARY HURTADO and [facility] Patient lives in an trailer in [facility]. She has access to food and electricity but does not have running water in her home. Her home is not clean, smells of urine, roaches, and other vermin are present. The dwelling is not secure with multiple broken windows, covered with cardboard. The client uses a space heater for warmth. On days when it is really cold she frequently stays in bed for most of the day for warmth. The client is not bothered by her current living situation and prefers to stay in her dwelling. She has friends present on the property who interact with her daily, but are not willing to assist in her care. The client is ALWAYS resistant to admissions and requires multiple hours of counseling by family & friends to convince her to stay. She has had multiple encounters in her lifetime with APS who have not removed her from her living situation. When the subject of moving is discussed the client becomes very agitated. The sisters and client are aware that her current living situation may be attributing to her decrease in health state. They would like to approach the discussion of H[employer] housing again. Case management has been notified and they will provide resources. The client has 2 sisters both who both live in [facility]. The client is visited once per week on Friday's @ 1000. Patient was scheduled for a Home Visit 09/28/2028 but was admitted to the hospital. Last Home visit 2018 Hypothyrodism: Treated with Levothyroxine 150mcg take 3 pills every Friday and 4 pills every . The client's med count is consistent with a high degree of medication compliance since her last admission. Also her TSH level reflects she is taking the medication but may not have reached complete therapeutic range. The twice per week dosing is the patient's preference. Hyperlipidemia: Treated with atorvastatin 40mg 1 po qday. Patient is not compliant with this medication. She is counseled about the need for this medication. Diabetes: Treated with Insulin gargaline at home takes 22U BID. Currently working on titrating up by 4units to reach therapeutic levels. Blood sugars recorded at patient home: 08/24- 274, 08/25- 319; 08/28-319. As of 09/02 patient had 760 units of insulin present in the home. Patient is counseled routinely about dietary changes to make based upon trash found in the home. Depression: Treated with setraline. Last medication count demonstrated a good medication compliance rate. Patient reports a decrease in days she felt sad. Hypotension: Patient frequently has issues with low blood pressure in her residence. She does not complain of feeling dizzy, short of breath, leg swelling, etc. Blood pressure range 120-80/90-40 manually on any given day. The patient is scheduled to remain on Home Visitation for now. If you need any further information regarding this case please contact [phone]
--- NOTE | 2019-09-29 14:36 | PRG ---
DATE OF SERVICE: 09/29/2019 SERVICE: Pulmonary Medicine. INTERVAL HISTORY: The patient is doing great from respiratory standpoint. She remains on room air. She went down to the operating room and has returned to the IMCU. Her blood pressures have firmed up very nicely, and she does not have any significant end-organ damage. Otherwise, there has been no interval change to her condition. PHYSICAL EXAMINATION: VITAL SIGNS: Afebrile, pulse 76, blood pressure 94/66, respirations 14, saturation 93% on room air. GENERAL: The patient is awake and alert, in no apparent distress. LUNGS: Decent air entry with no prolonged expiratory phase or wheezing present. HEART: Normal rate. Regular. ABDOMEN: Soft, nontender, and nondistended. Bowel sounds are positive. MUSCULOSKELETAL: No cyanosis or clubbing. There is no pitting in the bilateral lower extremities. NEUROLOGIC: Grossly nonfocal. LABORATORY DATA: WBC 8.6 and downtrending, hemoglobin 10.9, platelets 299,000. Basic metabolic profile and liver function studies are otherwise unremarkable except for total protein of 5.6 and albumin of 2.7. Urinalysis is essentially unremarkable. Beta-hydroxybutyric acid 0.16. Urine drug screen is otherwise unremarkable. HIV and syphilis are unremarkable. Groin abscess is growing a gram-negative jodee. Urine catheter is growing E. coli, which is essentially pansensitive. ASSESSMENT: 1. Severe sepsis. 2. Abscess, status post I and D, postoperative day 0. 3. Type 2 diabetes mellitus. 4. Urinary tract infection secondary to Escherichia coli. 5. Gram-negative jodee growing in abscess. DISCUSSION AND PLAN: I will continue our empiric antibiotics directed at both anaerobic organisms and gram-negatives. Vancomycin could likely be interrupted. She is currently hemodynamically stable for transition out of the IMCU to the surgical unit. When she leaves the IM, she will have no further requirements for inpatient Pulmonary or Critical Care opinion, and I will sign off. Please call with additional questions or concerns through time. Job ID: [id number]
[2019-09-29] MEDS: Ondansetron PF 4 MG/2 ML Vial IVP PRN (16:15)
[2019-09-29] MEDS: HumaLOG 300 UNITS/3 ML VIAL SC PRN (16:15)
[2019-09-29] MEDS ORDERED: Acetaminophen 500 MG TAB PO PRN (17:03)
[2019-09-29] MEDS: Atorvastatin Calcium 40 MG TAB PO SCH (20:42)
[2019-09-29] MEDS: Miconazole 2% Vaginal Cream 45 GM TUBE VAG SCH (20:43)
[2019-09-29] MEDS: traMADol HCl 50 MG TAB PO PRN (21:20)
[2019-09-29] MEDS: Nicotine 14 MG PATCH TD SCH (22:08)
--- NOTE | 2019-09-29 22:58 | PRG ---
DATE OF SERVICE: 09/29/2019 SUBJECTIVE: This is a 44-year-old female, who is postop excisional debridement of necrotizing right groin soft tissue wound earlier today with Dr. Collado. The patient is currently awake, alert, sitting up in hospital bed, in no acute distress. The patient voices no complaints or concerns at this time. The patient reports that her pain is well controlled and she is tolerating her diet. OBJECTIVE: VITAL SIGNS: Stable, afebrile. Urinary output is adequate. GENERAL: Middle-aged female, sitting up in hospital bed, in no acute distress. RESPIRATORY: Equal chest rise and fall. Respirations are even and nonlabored. ASSESSMENT: 1. Right groin abscess with necrotizing soft tissue wound. 2. Postop day zero incisional debridement of necrotizing right across soft tissue wound. 3. Acute kidney injury, resolved. 4. Sepsis, resolved. 5. Urinary tract infection secondary to Escherichia coli. PLAN: Continue antibiotics. Continue diabetic diet as tolerated. Job ID: [id number]
[2019-09-30 03:09] LABS: #Eosinphils 0.1 thou/uL (0.0-0.7); #Lymphocytes 1.5 thou/uL (1.20-3.40); #Monocytes 0.3 thou/uL (0.11-0.59); #Neutrophils 6.4 thou/uL (1.40-6.50); %Basophils 0.4 % (0.0-1.0); %Lymphocytes 17.8 % (21.0-51.0); %Monocytes 3.9 % (0.0-10.0); %Neutrophils 76.9 % (42.0-75.0); Hemoglobin 11.4 g/dL (12.0-16.0); Mean Corpuscular HGB CONC 33.2 g/dL (32.0-36.0); Mean Corpuscular Hemoglobin 28.2 pg (27.0-31.0); Mean Platelet Volume 7.2 fL (7.4-10.4); Platelet Count 303 thou/uL (130-400); RBC Distribution Width 12.9 % (11.5-14.5); Red Blood Cell (RBC) Count 4.03 mill/uL (4.20-5.40); White Blood Cell (WBC) Count 8.3 thou/uL (4.8-10.8)
[2019-09-30 03:32] LABS: Vancomycin, Trough 48.2 ug/mL
[2019-09-30 03:38] LABS: ALT (SGPT) 7 U/L (8-55); AST (SGOT) 11 U/L (5-34); Albumin 2.8 g/dL (3.5-5.0); Alkaline Phosphatase 110 U/L (40-110); Anion Gap 13 mmol/L (10-20); BUN (Urea Nitrogen) 16 mg/dL (7.0-18.7); Bilirubin, Total 0.3 mg/dL (0.2-1.2); Calc. Creatinine Clearance 70 mL/min (70-130); Calcium 8.2 mg/dL (7.8-10.44); Carbon Dioxide 22 mmol/L (22-29); Chloride 105 mmol/L (98-107); Estimated GFR-MDRD 51; Glucose 255 mg/dL (70-105); Potassium 4.5 mmol/L (3.5-5.1); Protein, Total 5.8 g/dL (6.0-8.3); Sodium 135 mmol/L (136-145)
[2019-09-30] MEDS: Clindamycin/D5W 900 MG in Premix Bag 1 BAG IVPB SCH (05:48)
[2019-09-30] MEDS: Levothyroxine 150 MCG TAB PO SCH (05:48)
[2019-09-30] MEDS: HumaLOG 300 UNITS/3 ML VIAL SC PRN ×2 (05:49→10:46)
[2019-09-30] MEDS: Vancomycin HCl 1.25 GM in Sodium Chloride 0.9% 250 ML 250 ML IVPB SCH (07:27)
[2019-09-30] MEDS: Famotidine 20 MG TAB PO SCH (08:44)
[2019-09-30] MEDS: Enoxaparin Sodium 40 MG/0.4 ML SYRINGE SC SCH (08:44)
[2019-09-30] MEDS ORDERED: Insulin Glargine 20 UNITS in Pre-Filled Syringe 1 EACH SC SCH (09:00)
--- NOTE | 2019-09-30 10:34 | PDOC.FM ---
- Subjective Subjective: Patient sitting up in bed eating breakfast at time of exam. NAEO. States she feels much better today. Denies any fever/chills, N/V, or groin pain. Reports urinary incontinence has resolved but does endorse constipation. - Objective MAR Reviewed: Yes Vital Signs & Weight: Vital Signs (12 hours) Temp Pulse Resp BP Pulse Ox 09/30/19 08:40 92 L 09/30/19 07:44 97.8 F 73 14 121/78 92 L 09/30/19 03:29 97.8 F 67 16 121/79 92 L 09/29/19 23:36 97.8 F 68 16 160/99 H 92 L Weight Admit Weight 72.938 kg Weight 71.169 kg Most Recent Monitor Data Heart Rate from ECG 75 NIBP 95/60 NIBP BP-Mean 71 Respiration from ECG 14 SpO2 93 I&O: 09/29/19 09/30/19 10/01/19 06:59 06:59 06:59 Intake Total 2950 1280 240 Output Total 1370 600 Balance 1580 680 240 Result Diagrams: 09/30/19 03:01 09/30/19 03:01 Phys Exam - Physical Examination Constitutional: NAD HEENT: moist MMs Neck: supple Respiratory: no wheezing, no rales, no rhonchi, clear to auscultation bilateral Cardiovascular: RRR, no significant murmur Gastrointestinal: soft Neurological: non-focal, moves all 4 limbs Psychiatric: normal affect, A&O x 3 Skin: no rash Deviation from normal: ~5x4cm area of erythema & w/ significantly less induration in R groin -: with packing in place; no bleeding or drainage noted Dx/Plan (1) AMS (altered mental status) Code(s): R41.82 - ALTERED MENTAL STATUS, UNSPECIFIED Status: Resolved (2) Tobacco abuse Code(s): Z72.0 - TOBACCO USE Status: Chronic (3) JESSICA (acute kidney injury) Code(s): N17.9 - ACUTE KIDNEY FAILURE, UNSPECIFIED Status: Resolved (4) Hyperglycemia Code(s): R73.9 - HYPERGLYCEMIA, UNSPECIFIED Status: Resolved (5) Schizophrenia Code(s): F20.9 - SCHIZOPHRENIA, UNSPECIFIED Status: Chronic (6) Diabetes type 2, uncontrolled Code(s): E11.65 - TYPE 2 DIABETES MELLITUS WITH HYPERGLYCEMIA Status: Chronic (7) Hyperlipidemia Code(s): E78.5 - HYPERLIPIDEMIA, UNSPECIFIED Status: Chronic (8) Hypothyroidism Code(s): E03.9 - HYPOTHYROIDISM, UNSPECIFIED Status: Chronic (9) Acute urinary retention Code(s): R33.8 - OTHER RETENTION OF URINE Status: Acute (10) Vulvovaginal candidiasis Code(s): B37.3 - CANDIDIASIS OF VULVA AND VAGINA Status: Acute (11) Urinary tract infection Status: Acute (12) Noncompliance with medication regimen Code(s): Z91.14 - PATIENT'S OTHER NONCOMPLIANCE WITH MEDICATION REGIMEN Status : Chronic - Plan Plan: 44YOF with a PMH significant for schizoaffective disorder, IDDMII, HTN & hypothyroidism who was brought to the ED for AMS following I&D of a R groin abscess earlier that day. Purulent Cellulitis with abscess of R groin s/p I&D * s/p I&D in the ER on date of admission but still a significant area of induration & WC unable to treat. * Consulted General surgery yesterday and patient is not post-op day #1 s/p I&D with debridement. * WBC 22.1--> 14.8-->8.6-->8.3 since admission. * 1/2 blood Cxs pending showing coag negative staph, most likely a contaminant. Wound Cx resulted as aranda-sensative E coli. * Will discontinue vanc, clinda & levaquin IV & transition to PO ciprofloxacin to ensure patient compliance and affordability & patient is allergic to all other PO agents. Ecoli UTI - UA obtained via straight cath in ED very dirty & prelim urine Cx shows > 100k cfus E coli that is pansensitive. - Will transition to PO ciprofloxacin to start tomorrow since patient already received IV levaquin today. Acute urinary retention, resolved. - 3 documented voids since gardner was removed post-operatively. Most likely 2/2 anticholiergic effects from Haldol given in the ED. vulvovaginal candidiasis - VP3 done with pelvic exam yesterday + for miranda. - Continue monistat 7 suppositories for 5 more days to complete full 7 day course. - GC/Chlamydia also pending. Unsafe & unhealthy living conditions - Patients HH nurse stopped by and informed patient's nurse that the patient lives in [facility] and is not very compliant with her prescribed meds which likely explains why she is ill so often with such severe infections (h/o gangrene in left groin abscess). - CM on board to assist with possible placement upon d/c. Will also notify APS given reported living conditions. - HIV & RPR negative. 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 Trough was signifcantly elevated. Will D/C today. - Will continue to renally dose meds as indicated & continue to trend w/ QD CMPs. IDDMII, uncontrolled * BG above goal range at 255 this AM * Will continue to titrate home meds to keep BG levels between 140-180 while inpatient, especially in setting of acute infection. * CC diet, hypoglycemia protocol. * Diabetes education. Hypothyroidism- TSH elevated at 5.0559 on admission * Will continue home meds. * Repeat T3 & T4 WNLs. HTN - Will resume home meds as tolerated by patient. Tobacco Abuse * Nicotine patch. * Tobacco cessation education. Normocytic anemia * Hgb stable at 11.4 this AM but patient has been getting IVFs since admission thus likely dilutional with possible coinciding anemia of chronic disease from 2 /2 CKD. * Likely needs an outpatient workup. * Will continue to trend. Schizoaffective disorder * Continue sertraline. AMS, resolved Mosmt likely 2/2 acute infection in conjunction with sedating meds given in ED. * Will continue to monitor closely. Hypotension, resolved. Code Status: Full Diet: CC 1800, low Na Lines: Peripheral, SL DVT PPx: Lovenox GI PPx: Famotidine PCP: MAURICIO German Dispo: Will transition to PO abx and possibly discharge home with family later today pending general surgery recommendations. Addendum - Attending - Attending Attestation Date/Time: 10/01/19 7394 I personally evaluated the patient and discussed the management with Dr. Hoskins yesterday. I agree with the History, Examination, Assessment and Plan documented above with any addition or exceptions noted below.
[2019-09-30] MEDS: Ondansetron PF 4 MG/2 ML Vial IVP PRN (10:45)
[2019-09-30 11:05] VITALS: TEMP 97.6
[2019-09-30] MEDS ORDERED: Sodium Chloride 0.9% 500 ML IV SCH (11:15)
[2019-09-30] MEDS: traMADol HCl 50 MG TAB PO PRN (12:09)
--- NOTE | 2019-09-30 13:22 | PDOC.BPN ---
- Brief Progress Note Called patient's sister who has been in the room with her frequently since admission, Jacque, to discuss discharge placemnet since patient was refusing [facility] placemnet. Jacque reported that the patient was texting her that she wanted to return home upon discharge. Met with patient before discharging her to investment counselor her on the risks associated to returning home to the place where she fell ill and expressed our concerns with this. Patient endorsed understanding and was agreeable to going home with her other sister who lives in [facility], [place] , upon discharge. Will call sisters and inform them of the patient's decision.
--- NOTE | 2019-09-30 14:02 | PQF ---
DATE: 09-30-19 ATTN: DR. PIPO MARY Please exercise your independent, professional judgment in responding to the clarification form. Clinical indicators are provided on the bottom of this form for your review Please check appropriate box(s) to clarify if the following diagnosis has been ruled in or ruled out: SEPSIS [ x ] Ruled in diagnosis [ ] Continue to treat [ x ] Resolved [ ] Ruled out diagnosis [ ] Other diagnosis [ ] Unable to determine In addition, please specify: Present on Admission (POA): [x ] Yes [ ] No [ ] Unable to determine For continuity of documentation, please document condition throughout progress notes and discharge summary. Thank You. CLINICAL INDICATORS - SIGNS / SYMPTOMS / LABS / RESULTS AND LOCATION IN MR: ER DX: SEPSIS, UTI H&P 09-28-19: ACUTE ABSCESS, JESSICA, ACUTE UTI, DM 2 UNCONTROLLED, HYPERLIPIDEMIA CONSULT NOTE LEON CA AGACNP-BC 09-29-19: SEPSIS, RESOLVED WBC: 09-27-19: 22.1 09-28-19: 14.8 BANDS 09-27-19: 44% H&P 09-28-19: THE ER DOC REPORTED CONCERN FOR SEPSIS. AT THIS TIME PT DID NOT MEET SEPSIS CRITERIA. CONSULT NOTE DR. GARCIA 09-29-19: SEVERE SEPSIS, ABSCESS, DM 2, UTI 2/2 E COLI, GRAM NEG MARLA GROWING IN ABSCESS RISK FACTORS / RESULTS AND LOCATION IN MR: H&P 09-28-19: ACUTE ABSCESS, JESSICA, ACUTE UTI, DM 2 UNCONTROLLED, HYPERLIPIDEMIA CONSULT NOTE DR. GARCIA 09-29-19: SEVERE SEPSIS, ABSCESS, DM 2, UTI 2/ 2 E COLI, GRAM NEG MARLA GROWING IN ABSCESS TREATMENTS / RESULTS AND LOCATION IN MR: ER NOTES 09-27-19: VANCOMYCIN IV, CEFTRIAXONE IV, IVF X 2 (This form is maintained as a part of the permanent medical record) 2014 [employer], [employer]. All Rights Reserved JOEL [email or web address] Office: [phone] [facility] HOSPITALShweta
[2019-09-30 15:44] VITALS: BP 147/94
[2019-09-30] MEDS ORDERED: Senokot S 8.6-50 MG TAB PO SCH (21:00)
--- NOTE | 2019-09-30 21:08 | DIS ---
DATE OF ADMISSION: 09/27/2019 DATE OF DISCHARGE: 09/30/2019 RESIDENT: Iqra Hoskins MD ADMITTING ATTENDING: Calixto Matta MD DISCHARGE ATTENDING: Raffaele Fitzgerald MD CONSULTS: 1. General Surgery, Dr. Franklin Collado on 09/29/2019. 2. Pulmonology, Dr. Lang Rodriguez on 09/28/2019. PROCEDURES: 1. Chest x-ray on 09/27/2019, which showed atherosclerosis but no acute cardiopulmonary process. 2. Surgical I and D of right groin abscess with necrotizing soft tissue on 09/29/2019. PRIMARY DIAGNOSES: 1. Acute metabolic encephalopathy secondary to Escherichia coli right groin abscess and urinary tract infection. 2. Vulvovaginal candidiasis. 3. Acute kidney injury on chronic kidney disease stage 3. 4. Purulent cellulitis with abscess of right groin. 5. Escherichia coli urinary tract infection. SECONDARY DIAGNOSES: 1. Chronic kidney disease, stage 3. 2. Insulin-dependent diabetes mellitus 2, uncontrolled. 3. Hypothyroidism. 4. Hypertension. 5. Tobacco abuse. 6. Normocytic anemia. 7. Schizoaffective disorder. DISCHARGE MEDICATIONS: 1. Acetaminophen 1 g p.o. q.8 hours p.r.n. for pain. 2. Lantus 26 units subcu q.a.m. 3. Miconazole 2% vaginal cream 45 g vaginal suppository at bedtime for 5 days. 4. MiraLAX 17 g p.o. daily. 5. Senokot-S 2 tablets p.o. b.i.d. 6. Ciprofloxacin 500 mg p.o. b.i.d. #8 for 4 days. 7. Atorvastatin 40 mg p.o. at bedtime. 8. Levothyroxine sodium 150 mcg p.o. q.a.m., 30 minutes before eating. 9. Sertraline 50 mg p.o. daily. DISCONTINUED MEDICATIONS: Lantus 20 units subcu q.a.m. HOSPITAL COURSE: The patient is a 44-year-old female with a past medical history significant for poorly controlled insulin-dependent diabetes mellitus type 2, hypertension, CKD stage 3, schizoaffective disorder, and poor medical compliance , who presented to the emergency department due to altered mental status per the patient's family. Of note, the patient had presented to the ED earlier that day for I and D and packing of a right groin abscess, but was then sent home. However, en route home, the patient was noted to be extremely weak, somnolent, and difficult to arouse. The family therefore brought her back to the ER for further evaluation. On presentation to the ED, her initial BP was noted to be 68/43, so she was given 2 L of IV fluids. She also had a low-grade temp of 99.5 taken rectally. All other vitals were within normal limits. Routine lab work including a CBC, ABG, CMP, and UA were obtained , which were notable for a significantly elevated white blood cell count of 22.1 with bandemia of 44%, hyperglycemia with a blood glucose level of 446, and acute kidney injury with a BUN and creatinine of 25 and 1.60, as well as lactic acidosis with an elevated lactate of 3.1. Her UA revealed the most likely source of infection other than her abscess, which showed turbid urine with greater than 1000 glucose, trace blood, 500 leukocyte esterase, 11 to 20 white blood cells, and 4+ bacteria. The patient was therefore determined to be septic secondary to UTI and right groin abscess and was given IV vancomycin and Rocephin and Medicine Team was called for admission to the IMCU for close monitoring overnight. Of note, on initial evaluation by the Family Medicine Service, the patient was noted to be A and O x4 and made it clear she did not wish to be admitted to the hospital for treatment. The Family Medicine Team therefore deemed her competent to make this decision; however, the Emergency Department did not agree with this assessment and deemed her to be confused and agitated and administered IM IV Ativan and Haldol prior to her being transferred to the medical unit. Overnight, the patient's blood pressure remained stable without the need for pressors, but she remained on maintenance IV fluids and was continued on IV vancomycin and clindamycin rather than Rocephin. By hospital day #2, the patient was no longer septic but the asset protection professional recommended the addition of IV Levaquin to cover for gram-negative organisms. By hospital day #3, urine cultures were positive for pansensitive E coli but the patient's abscess remained significantly indurated. General Surgery was therefore consulted for surgical I and D and debridement. The patient went to the OR later that day and by the date of discharge, abscess cultures came back positive for pansensitive E coli and the patient was transitioned to p.o. ciprofloxacin which was to be continued for 4 days upon discharge. The patient was instructed to follow up with Dr. Franklin Collado as noted below for a wound check. Regarding the patient's E coli UTI, this infection was also noted to be pansensitive and the ciprofloxacin that she was prescribed for the groin abscess would complete a 7-day treatment course for this infection as well. Regarding the patient's vulvovaginal candidiasis, this was diagnosed via pelvic exam that was performed on the hospital day #2 to evaluate for possible deep seeding or tracking of the superficial thigh abscess, which was not noted, however a VP3 swab confirmed the diagnosis of candidiasis and the patient was prescribed a 7-day course of miconazole vaginal suppositories for treatment of this infection. Regarding the patient's JESSICA superimposed on CKD stage 3, the patient's renal function was noted to be within her baseline range with an EGFR of approximately 51 by the date of discharge after IVFs over the course of her hospital stay. Of note, it was reported by the patient's home nurse that the patient was essentially living in [facility], which was the most likely reason for her admission with this type of infection. In addition it was noted that it was not compliant with her prescribed medications. Case Management was therefore consulted to help assist with possible placement; however, the patient refused. However, the patient's sister, Sydney Guerrero, did confirm with the telephonic nurse case manager that she planned to have the patient come home with her upon discharge and to continue to live with her permanently for the foreseeable future. Regarding the patient's uncontrolled insulin-dependent diabetes mellitus type 2 , her insulin regimen was adjusted over the course of her hospital stay and ultimately , the patient was discharged on an increased dose of long-acting daily insulin of Lantus 26 units subcu q.a.m. DISPOSITION: Stable. DISCHARGE INSTRUCTIONS: 1. Location: Home with sister, Sydney Guerrero. 2. Diet, heart healthy, low-sodium, consistent carb diet. 3. Activity: As tolerated. No restrictions. 4. Followup: The patient was instructed to follow up with her primary care provider, [facility] within 1 week of discharge and Dr[address] Franklin Collado on 10/07/2019 at 10:50 am for a wound check. Job ID: [id number] MTDD
[2019-10-01] MEDS ORDERED: Vancomycin HCl 1 GM in Premix Bag 1 BAG IVPB SCH (04:00)
[2019-10-01] MEDS ORDERED: Polyethylene Glycol 3350 17 GM Packet PO SCH (09:00)
[2019-10-01] MEDS ORDERED: Aspirin 81 mg Enteric Coated Tablet PO SCH (09:42)
--- NOTE | 2019-10-02 15:44 | EKG ---
Test Reason : AMS Blood Pressure : / mmHG Vent. Rate : 078 BPM Atrial Rate : 078 BPM P-R Int : 160 ms QRS Dur : 098 ms QT Int : 438 ms P-R-T Axes : 049 -16 122 degrees QTc Int : 499 ms Normal sinus rhythm Possible Left atrial enlargement Incomplete right bundle branch block Left ventricular hypertrophy Nonspecific T wave abnormality Prolonged QT Abnormal ECG Confirmed by JONELLE ALONZO ([id number]), market editor FELIPE LACKEY ([id number]) on 10/02/2019 3:44:17 PM Referred By: Confirmed By:JONELLE Rock
== END 2019-09-30 17:35 | disposition home or self-care (01) | DRG 871 ==
LOC: ERS 19:07 → IMCU/EMU 22:30 → SURG A 09-29 15:29
PROVIDERS: ADMIT Family Medicine; ATTEND Family Medicine
PROC: 0HB9XZZ Excision of Perineum Skin, External Approach (ICD-10-PCS; principal; 2019-09-29)
DX: A41.9 Sepsis, unspecified organism (principal); G93.41 Metabolic encephalopathy; L02.214 Cutaneous abscess of groin; N39.0 Urinary tract infection, site not specified; N17.9 Acute kidney failure, unspecified; E87.2 Acidosis; B96.20 Unspecified Escherichia coli [E. coli] as the cause of diseases classified elsewhere; B37.3 Candidiasis of vulva and vagina; I12.9 Hypertensive chronic kidney disease with stage 1 through stage 4 chronic kidney disease, or unspecified chronic kidney disease; N18.3 Chronic kidney disease, stage 3 (moderate); E11.22 Type 2 diabetes mellitus with diabetic chronic kidney disease; E03.9 Hypothyroidism, unspecified; D63.1 Anemia in chronic kidney disease; F25.9 Schizoaffective disorder, unspecified; F17.210 Nicotine dependence, cigarettes, uncomplicated; F41.9 Anxiety disorder, unspecified; I95.9 Hypotension, unspecified; R33.9 Retention of urine, unspecified; I25.10 Atherosclerotic heart disease of native coronary artery without angina pectoris; E11.65 Type 2 diabetes mellitus with hyperglycemia; Z79.4 Long term (current) use of insulin
CPT/HCPCS: 10061; 36415; 36416; 71045; 80053; 80202; 80306; 80307; 81003; 81015; 82010; 82330; 82803; 83605; 84439; 84443; 85025; 85060; 86780; 87040; 87070; 87077; 87086; 87149; 87186; 87205; 87389; 87480; 87491; 87510; 87591; 87660; 93005; A4353; J0696; J1630; J1650; J1815; J1956; J2001; J2060; J2405; J2704; J3010; J3370; J3490; J7050

== ENCOUNTER 2020-03-27 14:39 | Observation (INO) | payer OTHER ==
[~2020-03-27 14:39] MED LIST changes: -ISOVUE-370 76%-LOCM 1 ML ONE; +Iopamidol-370 76% 500 ML 1 ML ONE
[2020-03-27 15:23] LABS: #Basophils 0.1 thou/uL (0.0-0.2); #Eosinphils 0.3 thou/uL (0.0-0.7); #Lymphocytes 2.4 thou/uL (1.20-3.40); #Monocytes 0.3 thou/uL (0.11-0.59); #Neutrophils 6.1 thou/uL (1.40-6.50); %Basophils 0.7 % (0.0-1.0); %Eosinophils 3.3 % (0.0-10.0); %Lymphocytes 26.7 % (21.0-51.0); %Monocytes 2.7 % (0.0-10.0); %Neutrophils 66.7 % (42.0-75.0); Hemoglobin 13.2 g/dL (12.0-16.0); Mean Corpuscular HGB CONC 33.7 g/dL (32.0-36.0); Mean Corpuscular Hemoglobin 28.7 pg (27.0-31.0); Mean Corpuscular Volume 85.4 fL (78.0-98.0); Mean Platelet Volume 8.1 fL (7.4-10.4); Platelet Count 261 thou/uL (130-400); RBC Distribution Width 13.1 % (11.5-14.5); Red Blood Cell (RBC) Count 4.59 mill/uL (4.20-5.40); White Blood Cell (WBC) Count 9.2 thou/uL (4.8-10.8)
[2020-03-27 15:30] LABS: INR-International Normal Ratio 0.9; PTT 33.6 sec (22.9-36.1); Prothrombin Time 11.9 sec (12.0-14.7)
[2020-03-27 15:45] LABS: ALT (SGPT) 15 U/L (8-55); AST (SGOT) 18 U/L (5-34); Albumin 3.7 g/dL (3.5-5.0); Alkaline Phosphatase 100 U/L (40-110); Anion Gap 14 mmol/L (10-20); BUN (Urea Nitrogen) 18 mg/dL (7.0-18.7); Bilirubin, Total 0.4 mg/dL (0.2-1.2); Calc. Creatinine Clearance 0 mL/min (70-130); Calcium 9.5 mg/dL (7.8-10.44); Carbon Dioxide 22 mmol/L (22-29); Chloride 100 mmol/L (98-107); Estimated GFR-MDRD 50; Globulin 3.7 g/dL (2.4-3.5); Glucose 309 mg/dL (70-105); Potassium 4.3 mmol/L (3.5-5.1); Protein, Total 7.4 g/dL (6.0-8.3); Sodium 132 mmol/L (136-145)
--- NOTE | 2020-03-27 16:16 | RAD ---
PORTABLE CHEST 1 VIEW: Date: 03/27/2020 Time: 1425 hours HISTORY: Hypotension. COMPARISON: 09/27/2019. FINDINGS: The heart size is normal. The lungs are well expanded without focal areas of consolidation, pneumotho races, or pleural effusions. IMPRESSION: No radiographic evidence of acute cardiopulmonary process. POS: [facility]
--- NOTE | 2020-03-27 16:24 | CT ---
Exam: CTA chest with 3-D rendering: CTA abdomen with 3-D rendering: HISTORY: Back pain with hypotension. COMPARISON: CT angiogram of the chest 12/11 TECHNIQUE: CT angiogram of the thoracic and abdominal aorta performed in the axial plane. Three-dimen sional reformatted images are submitted for interpretation. FINDINGS: Chest CT: Mediastinum: No mass, lymphadenopathy or hematoma Heart: Normal heart size. No significant pericardial fluid. Coronary arteries: Minimal atherosclerosis Trachea and central bronchi: Patent Pleural spaces: No pleural effusion. Right lung: Chronic changes due to scar and atelectasis in the right lower lobe. No masses or consoli dation. Calcified granuloma in the upper lobe measuring 0.9 cm Left lung: Chronic changes suggesting scar and atelectasis in the left lower lobe. No masses or conso lidation. Pneumothorax: None Abdomen CT: Gallbladder: Absent. Portal vein: Cannot be assessed Solid organs: Appropriate arterial phase enhancement of the liver, spleen, pancreas and adrenal gland s Kidneys: Symmetric enhancement. No obstructive uropathy. Nonobstructing calculus in the right renal p lida. Mesentery: No mass, lymphadenopathy, free air or free fluid Alimentary canal: Limited evaluation by the lack of oral contrast. No evidence of a bowel obstruction . Normal ileocecal junction. Osseous structures: No lytic or blastic lesions. There is diffuse bone demineralization. CT ANGIOGRAM: The root of the aorta, ascending thoracic aorta, aortic arch, descending thoracic aorta and abdominal aorta have an overall normal course, caliber and luminal diameter. No aneurysm, dissection or periaortic fat stranding The origin of the great vessels of the neck have appropriate enhancement diameter Celiac artery origin, superior mesenteric artery origin and inferior mesenteric artery origin is appr opriate enhancement diameter. Solitary left or right renal arteries without significant stenosis. IMPRESSION: No CT evidence for aortic aneurysm or aortic dissection.
--- NOTE | 2020-03-27 16:26 | PDOC.FPRHP ---
- History of Present Illness Chief Complaint: Back pain History of Present Illness: Ms. Green is a 44yoF who presents to the ED for evaluation of back pain. She states this back pain started on the 8th while she was riding in the truck with her fiance. It hurts in the middle of her back, it is better than when she came in, it is now a 5/10. At its worse it was a 10/10. She has been trying Aleve at home with minimal relief. This morning she states she couldn't get out of bed and that's why she came in. Standing for long periods of time makes the pain worse. She states the pain has made her appetite decreased. She doesn't think she has been taking her insulin either. She has been sleeping more. She lives at home with her sister. ED Course: 2L NS - Allergies/Adverse Reactions Allergies Allergy/AdvReac Type Severity Reaction Status Date / Time amoxicillin trihydrate Allergy Severe Rash Verified 12/03/19 10:39 [From Trimox] doxycycline Allergy Severe Anaphylaxis Verified 12/03/19 10:39 peach Allergy Severe Verified 12/03/19 10:39 Penicillins Allergy Severe Anaphylaxis Verified 12/03/19 10:39 strawberry Allergy Severe Verified 12/03/19 10:39 sulfamethoxazole Allergy Severe Anaphylaxis Verified 12/03/19 10:39 [From Bactrim] trimethoprim [From Bactrim] Allergy Severe Anaphylaxis Verified 12/03/19 10:39 orange juice Allergy Verified 12/03/19 10:39 - Home Medications Medication Instructions Recorded Confirmed Type Acetaminophen [Tylenol Extra 1,000 mg PO Q8H PRN tab 09/30/19 Rx Strength] Atorvastatin Calcium [Lipitor] 40 mg PO HS #30 tab 09/30/19 Rx Ciprofloxacin [Cipro] 500 mg PO BID #8 tab 09/30/19 Rx Insulin Glargine [Lantus Vial] 26 units SC QAM #1 box 09/30/19 Rx Levothyroxine Sodium [Synthroid] 150 mcg PO 0600 #30 tab 09/30/19 Rx Miconazole 2% Vaginal Cream 45 gm VAG HS 5 Days #5 tube 09/30/19 Rx [Monistat 7 Vaginal 2% Cream] Polyethylene Glycol 3350 [Miralax] 17 gm PO DAILY pk 09/30/19 Rx Sennosides/Docusate Sodium 2 tab PO BID tab 09/30/19 Rx [Senokot S] Sertraline HCl 50 mg PO DAILY #30 tablet 09/30/19 Rx - History PMHx: Cervical cancer, s/p chemotherapy DM II CHF Cardiomyopathy H/o OH Pericardial effusion HLD Hypothyroidism Asthma Multiple psychiatric diagnoses. PSHx: Hysterectomy Cholecystecomy Pericardial window Gangrene of groin FHx: Mom: DM II Dad: , lung cancer Social: History of cocaine, marijuana and illegal prescription drug use when she was younger. She currently smokes cigarettes, 0.5ppd x 30 years. She drinks alcohol on occasion. - Review of Systems General: reports: weight/appetite/sleep changes, fatigue. denies: fever/chills , night sweats Eyes: denies: eye pain, vision changes ENT: denies: nasal congestion, rhinorrhea Respiratory: denies: cough, congestion, shortness of breath Cardiovascular: denies: chest pain, palpitation, edema, paroxysmal nocturnal dyspnea, orthopnea Gastrointestinal: denies: nausea, vomiting, diarrhea, constipation, abdominal pain Genitourinary: denies: incontinence, dysuria, polyuria Skin: denies: rashes, lesions Musculoskeletal: reports: pain, tenderness, stiffness. denies: swelling, arthritis/arthralgias Neurological: denies: numbness, syncope, seizure, weakness - Vital signs BP: 105/68, 122/82, Pulse: 61, Resp: 18, Pain: 10, O2 sat: 100 on (3L Oxygen), Weight: 66kg - Physical Exam Constitutional: NAD, awake, alert and oriented HEENT: normocephalic and atraumatic, EOMI, conjunctiva clear, grossly normal vision, grossly normal hearing, MMM Neck: supple, trachea midline Heart: RRR, normal S1/S2, no murmurs/rubs/gallops Lungs: CTAB, no respiratory distress, good air movement Abdomen: soft, non-tender -Musculoskeletal: TTP over thoracic spine and paraspinal muscles Neurological: no focal deficit, CN II-XII intact Skin: no rash/lesions, good turgor Heme/Lymphatic: no unusual bruising or bleeding, no purpura FMR H&P: Results - Labs Result Diagrams: 03/27/20 15:05 03/27/20 15:05 Lab results: WBC 9.2 thou/uL (4.8-10.8) 03/27/20 15:05 Hgb 13.2 g/dL (12.0-16.0) 03/27/20 15:05 Hct 39.2 % (36.0-47.0) 03/27/20 15:05 MCV 85.4 fL (78.0-98.0) 03/27/20 15:05 Plt Count 261 thou/uL (130-400) 03/27/20 15:05 Neutrophils % 66.7 % (42.0-75.0) 03/27/20 15:05 Sodium 132 mmol/L (136-145) L 03/27/20 15:05 Potassium 4.3 mmol/L (3.5-5.1) 03/27/20 15:05 Chloride 100 mmol/L (98-107) 03/27/20 15:05 Carbon Dioxide 22 mmol/L (22-29) 03/27/20 15:05 BUN 18 mg/dL (7.0-18.7) 03/27/20 15:05 Creatinine 1.17 mg/dL (0.6-1.1) H 03/27/20 15:05 Glucose 309 mg/dL (70-105) H 03/27/20 15:05 Lactic Acid 1.3 mmol/L (0.5-2.2) 03/27/20 15:27 Calcium 9.5 mg/dL (7.8-10.44) 03/27/20 15:05 Total Bilirubin 0.4 mg/dL (0.2-1.2) 03/27/20 15:05 AST 18 U/L (5-34) 03/27/20 15:05 ALT 15 U/L (8-55) 03/27/20 15:05 Alkaline Phosphatase 100 U/L (40-110) 03/27/20 15:05 B-Natriuretic Peptide Less than 10.0 pg/mL (0-100) 03/27/20 15:05 Serum Total Protein 7.4 g/dL (6.0-8.3) 03/27/20 15:05 Albumin 3.7 g/dL (3.5-5.0) 03/27/20 15:05 - Radiology Interpretation CT scan - chest Status: report reviewed by me (IMPRESSION: No CT evidence for aortic aneurysm or aortic dissection.) Chest x-ray Status: report reviewed by me (IMPRESSION: No radiographic evidence of acute cardiopulmonary process.) FMR H&P: A/P - Problem List (1) Back pain Current Visit: Yes Status: Acute Code(s): M54.9 - DORSALGIA, UNSPECIFIED (2) Hypotension Current Visit: No Status: Acute - Plan Hypotension Initial pressures in 60s/30s. Responded to fluids. s/p 2L NS in ED. Current BP 120s/50s. Recommended staying in the hospital overnight for close observation. She declined admission to the ED. I stressed that her condition has improved, but she may have recurrence of her hypotension overnight. She insisted on going home. Back pain May be 2/2 dehydration or muscle strain. UA/UCx ordered. Drug screen. Chronic medical problems. At this time, the patient has declined admission to the hospital. We strongly recommended she spend at least one night for management and observation. Code: Full PCP: REINIER German FMR H&P: Upper Level - Plan Date/Time: 03/27/20 2736 I, [], have evaluated this patient and agree with findings/plan as outlined by application development intern resident. Pertinent changes/additions are listed here. Addendum - Attending - Attending Attestation Date/Time: 03/27/20 4820 I personally evaluated the patient and discussed the management with Dr. Cancino. I agree with the History, Examination, Assessment and Plan documented above with any addition or exceptions noted below. Presented for Back pain and was found to be hypotensive in ER. Received 2L fluid bolus. no obvious source of infection yet. After team had evaluated the patient, she stated she wanted to go home. We explained the importance of staying for evaluation but she wanted to sign out AMA and expressed understanding of possible complications including .
[2020-03-27 16:56] LABS: Bilirubin Negative (Negative); Blood, Urine Negative (Negative); Clarity Clear (Clear); Glucose, Urine (Dipstick) Greater than 1000 mg/dL (Negative); Ketone, Urine Negative (Negative); Leukocyte Negative Leu/uL (Negative); Nitrite Negative (Negative); Protein, Urine (Dipstick) 20 mg/dL (Neg-Trace); Urobilinogen Normal mg/dL (Less than 2); pH, Urine 5.5 (5.0-9.0)
== END 2020-03-27 17:22 | disposition left against medical advice (07) ==
LOC: ERS 14:39 → ERHOLD 16:32
PROVIDERS: ADMIT Family Medicine; ATTEND Family Medicine
DX: I95.9 Hypotension, unspecified (principal); M54.9 Dorsalgia, unspecified; E11.9 Type 2 diabetes mellitus without complications; E03.9 Hypothyroidism, unspecified; E78.00 Pure hypercholesterolemia, unspecified; E78.5 Hyperlipidemia, unspecified; F31.9 Bipolar disorder, unspecified; F20.9 Schizophrenia, unspecified; F17.210 Nicotine dependence, cigarettes, uncomplicated; Z79.4 Long term (current) use of insulin; Z79.899 Other long term (current) drug therapy; Z88.0 Allergy status to penicillin; Z88.1 Allergy status to other antibiotic agents; Z88.2 Allergy status to sulfonamides; Z91.018 Allergy to other foods
CPT/HCPCS: 36415; 51701; 71045; 71275; 72191; 74175; 80053; 81003; 83605; 83880; 85025; 85610; 85730; 87040; 87086; 93005; 96360; 96361; G0378; Q9967

== ENCOUNTER 2021-07-27 16:30 | Emergency (ER) | payer OTHER ==
[2021-07-27 17:59] LABS: Bilirubin Negative (Negative); Blood, Urine Negative (Negative); Clarity Turbid (Clear); Glucose, Urine (Dipstick) 50 mg/dL (Negative); Ketone, Urine Negative (Negative); Leukocyte Negative Leu/uL (Negative); Nitrite Negative (Negative); Protein, Urine (Dipstick) 50 mg/dL (Neg-Trace); RBC/HPF 0-3 HPF (0-3); Specific Gravity, Urine 1.018 (1.002-1.036); Urobilinogen Normal mg/dL (Less than 2); WBC/HPF 0-3 HPF (0-3); pH, Urine 5.5 (5.0-9.0)
[2021-07-27 18:00] LABS: Bacteria/HPF 1+ HPF (None Seen)
[2021-07-27 18:01] LABS: #Eosinphils 0.4 thou/uL (0.0-0.7); #Lymphocytes 2.6 thou/uL (1.20-3.40); #Monocytes 0.5 thou/uL (0.11-0.59); %Basophils 0.2 % (0.0-1.0); %Eosinophils 3.2 % (0.0-10.0); %Monocytes 3.7 % (0.0-10.0); %Neutrophils 71.8 % (42.0-75.0); Hemoglobin 14.8 g/dL (12.0-16.0); Mean Corpuscular HGB CONC 34.2 g/dL (32.0-36.0); Mean Corpuscular Hemoglobin 30.3 pg (27.0-31.0); Mean Corpuscular Volume 88.6 fL (78.0-98.0); Mean Platelet Volume 7.4 fL (7.4-10.4); Platelet Count 325 thou/uL (130-400); RBC Distribution Width 12.3 % (11.5-14.5); Red Blood Cell (RBC) Count 4.88 mill/uL (4.20-5.40); White Blood Cell (WBC) Count 12.6 thou/uL (4.8-10.8)
[2021-07-27 18:23] LABS: ALT (SGPT) 25 U/L (8-55); AST (SGOT) 17 U/L (5-34); Albumin 3.9 g/dL (3.5-5.0); Alkaline Phosphatase 124 U/L (40-110); Anion Gap 14 mmol/L (10-20); BUN (Urea Nitrogen) 26 mg/dL (7.0-18.7); Bilirubin, Total 0.4 mg/dL (0.2-1.2); CK (CPK) 52 U/L (29-168); Calc. Creatinine Clearance 0 mL/min (70-130); Calcium 10.4 mg/dL (7.8-10.44); Carbon Dioxide 20 mmol/L (22-29); Chloride 106 mmol/L (98-107); Globulin 3.8 g/dL (2.4-3.5); Glucose 177 mg/dL (70-105); Potassium 4.2 mmol/L (3.5-5.1); Protein, Total 7.7 g/dL (6.0-8.3); Sodium 136 mmol/L (136-145)
== END 2021-07-27 19:12 | disposition home or self-care (01) ==
LOC: ERS 16:30
DX: R41.82 Altered mental status, unspecified (principal); R41.0 Disorientation, unspecified; R51.9 Headache, unspecified; E11.9 Type 2 diabetes mellitus without complications; E78.00 Pure hypercholesterolemia, unspecified
CPT/HCPCS: 36415; 71045; 80053; 81003; 81015; 82550; 84484; 85025; 93005